=== PATIENT | female | born 1970 | race Caucasian/White ===

== ENCOUNTER 2025-02-05 17:50 | Inpatient (IN) ==
--- NOTE | 2025-02-05 18:14 | Emergency Department Note ---
Impression & Plan Small bowel obstruction, Abdominal pain ED Provider Note NAME: KERA BETH AGE: 54 SEX: F : 1970 ARRIVES VIA: Walk-In INFORMANT: Patient ED PROVIDER(S): Cosmo Cardenas DO CHIEF COMPLAINT: Abdominal pain HPI: Patient is a 54-year-old female who presents to the ER for abdominal pain. She notes it started around 9 PM last night. It is periumbilical. She notes she does not want to eat. She does have nausea but no vomiting. Last bowel movement was this morning. Previous abdominal surgeries include hysterectomy. No headache or change in vision. No chest pain or shortness of breath. No dysuria, urgency or frequency. No other exacerbating or remitting factors. ADDITIONAL HISTORY OBTAINED: Per HPI Chronic Medical/Social Conditions Affecting Care: Per HPI PAST MEDICAL HISTORY:See Below PAST SURGICAL HISTORY:See Below FAMILY HISTORY:See Below SOCIAL HISTORY:See Below HOME MEDICATIONS:See Below ALLERGIES:See Below VITALS:See Below PHYSICAL EXAMINATION: GENERAL: Sitting up in bed, alert, well appearing, well nourished, no distress, non-toxic EYE EXAM: normal conjunctiva. OROPHARYNX: mucous membranes are moist LUNGS: Clear to auscultation. Normal chest wall mechanics HEART: no murmurs, S1 normal and S2 normal ABDOMEN: abdomen soft, non-tender, normo-active bowel sounds, no masses, no rebound or guarding. UPPER EXTREMITIES: upper extremities are grossly normal. LOWER EXTREMITIES: No pitting edema. NEURO EXAM: Normal sensorium, cranial nerves II-XII grossly intact, normal speech, no gross weakness of arms, no gross weakness of legs. MEDICAL DECISION MAKING: Patient is a 54-year-old female who presents to the ER for the stated complaint. IV was established and blood work was obtained. Labs show no significant leukocytosis. No anemia. BMP along LFTs bilirubin and lipase was unremarkable. CT abdomen pelvis suggest an obstruction. Patient was given IV fluids, IV morphine and IV Zofran. She was updated at bedside. Discussed case with the hospitalist for further evaluation management treatment due to the mechanical obstruction seen on CT read by radiology. Consults/Care Managements Discussions: Per [facility] Triage Nursing notes reviewed. Limited review of prior medical records performed Vital Signs: reviewed and remarkable for tachy Differential diagnosis: Differential diagnoses includes but is not limited to gastritis, peptic ulcer disease, GERD, gallbladder disease, pancreatitis, small bowel obstruction, appendicitis, diverticulitis, hernia, urinary tract infection, torsion, /ectopic (if female), perforation, trauma, infectious. ER treatment provided: See below Diagnostics interpreted by me include EKG and cardiac monitoring as listed below: -Cardiac Monitoring: An order was placed for continuous cardiac monitoring. The monitor shows a rate of 101 with sinus rhythm. -ECG: none -Laboratory studies:Interpreted by me as stated above in MDM and shown below. Imaging studies: Xrays: As interpreted by me:none CTs show: CT abdomen pelvis per my pleurae interpretation showed no obvious pneumonia in the lower lung merino CT abdomen pelvis per radiology as described above Procedures:none Critical Care: None Past Med/Surg History Problem List (Updated 02/05/25 @ 20:35 by Cosmo Cardenas DO) Abdominal pain (Acute) Small bowel obstruction (Acute) Medical History (Updated 02/05/25 @ 20:35 by Cosmo Cardenas DO) Bowel obstruction Surgical History (Updated 06/13/22 @ 17:17 by RADHIKA Leonardo) H/O: hysterectomy Social History Smoking Status: Current every day smoker Tobacco Type: Cigarettes Preferred Language: Maltese Feels Safe at Home: Yes Allergies Allergies Allergy/AdvReac Type Severity Reaction Status Date / Time cefuroxime [From Ceftin] Allergy Intermediate ITCHY RASH Verified 06/13/22 18:41 cephalexin [From Keflex] Allergy Intermediate ITCHY RASH Verified 06/13/22 18:41 erythromycin base Allergy Intermediate ITCHY RASH Verified 06/13/22 18:41 Penicillins Allergy Intermediate ITCHY RASH Verified 06/13/22 18:41 Tetracyclines Allergy Intermediate ITCHY RASH Verified 06/13/22 18:41 Home Meds Home Medications Medication Instructions Recorded Confirmed diphenhydramine HCl 25 mg 25 mg PO HS PRN Sleep 06/13/22 06/13/22 disintegrating tablet (Unisom SleepMelts) Results & Data (ED) Vital Signs Vital Signs - 24 hr 02/05/25 17:54 02/05/25 18:25 02/05/25 19:57 Temperature 36.6 C Temperature Source Temporal Artery Scan Pulse Rate 102 H 88 Pulse Rate [Apical] 78 Pulse Rhythm Pulse Rhythm [Apical] Regular Pulse Strength [Apical] Normal Respiratory Rate 20 16 Respiratory Effort / Characteristics Non-Labored Spontaneous Non-Labored Spontaneous Respiratory Depth Normal Normal Respiratory Pattern Regular Regular Blood Pressure 112/69 Blood Pressure [Right Arm] 126/83 Blood Pressure Mean 83 Blood Pressure Mean [Right Arm] 97 Blood Pressure Position Sitting Blood Pressure Position [Right Arm] Lying Pulse Oximetry 96 97 Oxygen Delivery Method Room Air Room Air Sepsis Recent Fever Within 48 Hours No Sepsis New/Unexplained Change in Mental Status N/A Sepsis Action Taken by Nursing No Action Required 02/05/25 20:00 Temperature Temperature Source Pulse Rate 72 Pulse Rate [Apical] Pulse Rhythm Regular Pulse Rhythm [Apical] Pulse Strength [Apical] Respiratory Rate 20 Respiratory Effort / Characteristics Respiratory Depth Respiratory Pattern Blood Pressure Blood Pressure [Right Arm] Blood Pressure Mean Blood Pressure Mean [Right Arm] Blood Pressure Position Blood Pressure Position [Right Arm] Pulse Oximetry 96 Oxygen Delivery Method Room Air Sepsis Recent Fever Within 48 Hours Sepsis New/Unexplained Change in Mental Status Sepsis Action Taken by Nursing Laboratory Data 02/05/25 18:15 02/05/25 18:15 Lab Results 02/05/25 02/05/25 Range/Units 18:15 18:31 WBC 10.71 (4.8-10.8) K/ul RBC 5.32 (4.20-5.40) M/uL Hgb 16.3 H (12.0-16.0) g/dl POC Hgb 17.0 H (12.0-16.0) g/dl Hct 48.2 H (37.0-47.0) % POC Hct 50 H (37-47) % MCV 90.6 (80.0-100.0) fL MCH 30.6 (25.0-34.0) pg MCHC 33.8 (32.0-36.0) g/dL RDW Std Deviation 46.3 (36.4-46.3) fL RDW Coeff of Nathen 13.9 (11.5-14.5) % Plt Count 405 H (130-400) K/uL MPV 8.6 L (9.4-12.4) fL Immature Gran % (Auto) 0.3 % Neut % (Auto) 76.7 % Lymph % (Auto) 17.5 % Kings % (Auto) 3.8 % Eos % (Auto) 1.4 % Baso % (Auto) 0.3 % Neut # (Auto) 8.22 H (1.40-6.50) K/uL Lymph # (Auto) 1.87 (1.20-3.40) K/uL Kings # (Auto) 0.41 (0.11-0.59) K/uL Eos # (Auto) 0.15 (0.00-0.50) K/uL Baso # (Auto) 0.03 (0.00-0.20) K/uL Immature Gran # (Auto) 0.03 (0.01-0.20) K/uL POC Sodium 139 (135-144) mmol/L Sodium 139 (136-145) mmol/L POC Potassium 4.3 (3.3-5.0) mmol/L Potassium 4.3 (3.5-5.1) mmol/L POC Chloride 105 (101-112) mmol/L Chloride 105 (98-107) mmol/L Carbon Dioxide 25 (21-32) mmol/L POC Total CO2 24 (24-31) mmol/L Anion Gap 9 (3-11) POC Anion Gap 16.0 (16-25) mmol/L POC BUN 8 (7-18) mg/dl BUN 9 (6-23) mg/dl Creatinine 0.71 (0.6-1.2) mg/dl POC Creatinine 0.8 (0.6-1.3) mg/dl Est Cr Clr Drug Dosing Not Reportable eGFR 100.98 BUN/Creatinine Ratio 12.7 (10-20) Glucose 104 H (70-99(Fasting)) mg/dl POC Glucose (other) 102 H (70-99) mg/dl Calcium 9.6 (8.6-10.3) mg/dl POC Ioniz Calcium Fiona 1.14 (1.12-1.32) mmol/l Total Bilirubin 0.5 (0.2-1.0) mg/dl AST 14 (13-39) U/L ALT 11 (7-52) U/L Alkaline Phosphatase 83 (34-104) U/L Total Protein 7.8 (6.0-8.3) gm/dl Albumin 4.3 (3.4-5.0) gm/dl Globulin 3.5 (2.5-4.0) gm/dl Albumin/Globulin Ratio 1.2 (0.9-2) Lipase 58 (11-82) U/L Administered Medications Discontinued Medications Sodium Chloride (Nss) 1,000 mls @ 999 mls/hr IV .Q1H1M ONE Stop: 02/05/25 18:57 Last Infusion: 02/05/25 19:26 Dose: Infused Documented By: Admin: 02/05/25 18:23 Dose: 999 mls/hr Documented By: KELSEY Ioversol (Optiray 320 100ml) 90 ml IV ONCE ONE Stop: 02/05/25 18:43 Last Admin: 02/05/25 18:42 Dose: 90 ml Documented By: SP Morphine Sulfate (Morphine Sulfate 4 Mg/Ml 1 Ml Carp\Vial) 4 mg IV NOW STA Stop: 02/05/25 18:13 Last Admin: 02/05/25 18:23 Dose: 4 mg Documented By: KELSEY Ondansetron HCl (Ondansetron Inj 2 Mg/Ml 2 Ml Vial) 4 mg IV NOW STA Stop: 02/05/25 18:13 Last Admin: 02/05/25 18:23 Dose: 4 mg Documented By: KELSEY Imaging Data Radiologist's Impression: Abdomen/Pelvis CT 02/05/25 17:57 EXAMINATION: CT of the abdomen and pelvis performed after the administration of IV contrast TECHNIQUE: Helical CT images from the lung bases through the symphysis pubis were obtained with contrast. Coronal and sagittal reformatted images were generated at a workstation for further assessment. Dose reduction techniques were achieved by using automatic exposure control and/or adjustment of mA and/or kV according to patient size and/or use of iterative reconstruction technique. COMPARISON: None HISTORY: Abdominal pain FINDINGS: Lower chest: No consolidation. No pleural effusion or pneumothorax. Liver: No suspicious liver lesions. Portal veins appear patent. Gallbladder: No gallstones. No evidence of acute cholecystitis. Spleen: Normal size. Pancreas: No suspicious pancreatic lesions. The pancreatic duct is not dilated. Adrenal glands: No adrenal nodules. Kidneys: No hydronephrosis or obstructing renal stones. Bladder / Pelvic organs: Unremarkable. Bowel: No bowel obstruction. A long segment, beginning at the terminal ileum of the small bowel, demonstrates wall thickening and mucosal hyperenhancement, with mild fluid filling, and is otherwise collapsed. Just proximal to this, there is a moderate length segment of significant small bowel dilation, containing feces, which proximally auto decompresses. Most of the jejunum appears decompressed and otherwise unremarkable. The appendix is unremarkable. Lymph nodes: No retroperitoneal, mesenteric, or pelvic lymphadenopathy. Peritoneum / Retroperitoneum: No free fluid or air within the abdomen. Vessels: No infrarenal aortic aneurysm. Bones and soft tissues: No suspicious lesion in the bones. Mild, irregularity and sclerosis about the iliac aspect of the right SI joint, possibly due to sacroiliitis. IMPRESSION: Findings, as above, of a long segment of terminal ileum demonstrating wall thickening and mucosal hyperenhancement, mild fluid filling, and otherwise is decompressed. Just proximal to this, is a moderate length segment of significantly dilated bowel containing feces, likely due to partial mechanical obstruction. The findings raise concern for inflammatory bowel (Crohn) disease. Possible right-sided sacroiliitis. Electronically signed by Taj Brar 02-05-2025 7:17 PM Discharge Plan Visit Data Chief Complaint: Abdominal Pain Stated Complaint: SEVERE ABD PAIN, NAUSEA ED Provider: Cosmo Cardenas Discharge Problem: Small bowel obstruction, Abdominal pain Condition: Fair Forms Stand Alone Forms: [facility] [employer] Prescriptions Prescriptions: No Action Unisom SleepMelts 25 mg Tablet,Disintegrating 25 mg PO HS PRN (Reason: Sleep) Referrals Referrals: Halle Negrete MD [Outside Practitioners] - Discharge Problem: Abdominal pain Qualifiers: Abdominal location: unspecified location Qualified Code(s): R10.9 - Unspecified abdominal pain
[2025-02-05] MEDS: MoRPHine SULFATE 4 MG/ML 1 ML CARP\\VIAL IV STA (18:23)
[2025-02-05] MEDS: ONDANSETRON INJ 2 MG/ML 2 ML VIAL IV STA (18:23)
[2025-02-05] MEDS: SODIUM CHLORIDE 0.9% 1,000 ML IV ONE (18:23)
[2025-02-05 18:37] LABS: Hematocrit (blood only) 48.2 % (37.0-47.0); Hemoglobin 16.3 g/dl (12.0-16.0); Immature Granulocytes # (auto) 0.03 K/uL (0.01-0.20); Immature Granulocytes % (auto) 0.3 %; Mean Corpuscular Hemoglobin 30.6 pg (25.0-34.0); Mean Corpuscular Volume 90.6 fL (80.0-100.0); Platelet Count 405 K/uL (130-400); RDW Standard Deviation 46.3 fL (36.4-46.3); Red Blood Count 5.32 M/uL (4.20-5.40); White Blood Count 10.71 K/ul (4.8-10.8)
[2025-02-05] MEDS: OPTIRAY 320 100ml IV ONE (18:42)
[2025-02-05 18:53] LABS: Alanine Aminotransferase 11 U/L (7-52); Albumin Globulin Ratio 1.2 (0.9-2); Alkaline Phosphatase 83 U/L (34-104); Anion Gap 9 (3-11); Bilirubin,Total 0.5 mg/dl (0.2-1.0); Blood Urea Nitrogen 9 mg/dl (6-23); Calcium 9.6 mg/dl (8.6-10.3); Carbon Dioxide 25 mmol/L (21-32); Chloride 105 mmol/L (98-107); Globulin 3.5 gm/dl (2.5-4.0); Glucose 104 mg/dl (70-99(Fasting)); Lipase 58 U/L (11-82); Potassium 4.3 mmol/L (3.5-5.1); Sodium 139 mmol/L (136-145); Total Protein 7.8 gm/dl (6.0-8.3)
--- NOTE | 2025-02-05 19:17 | CT Scan Report ---
EXAMINATION: CT of the abdomen and pelvis performed after the administration of IV contrast TECHNIQUE: Helical CT images from the lung bases through the symphysis pubis were obtained with contrast. Coronal and sagittal reformatted images were generated at a workstation for further assessment. Dose reduction techniques were achieved by using automatic exposure control and/or adjustment of mA and/or kV according to patient size and/or use of iterative reconstruction technique. COMPARISON: None HISTORY: Abdominal pain FINDINGS: Lower chest: No consolidation. No pleural effusion or pneumothorax. Liver: No suspicious liver lesions. Portal veins appear patent. Gallbladder: No gallstones. No evidence of acute cholecystitis. Spleen: Normal size. Pancreas: No suspicious pancreatic lesions. The pancreatic duct is not dilated. Adrenal glands: No adrenal nodules. Kidneys: No hydronephrosis or obstructing renal stones. Bladder / Pelvic organs: Unremarkable. Bowel: No bowel obstruction. A long segment, beginning at the terminal ileum of the small bowel, demonstrates wall thickening and mucosal hyperenhancement, with mild fluid filling, and is otherwise collapsed. Just proximal to this, there is a moderate length segment of significant small bowel dilation, containing feces, which proximally auto decompresses. Most of the jejunum appears decompressed and otherwise unremarkable. The appendix is unremarkable. Lymph nodes: No retroperitoneal, mesenteric, or pelvic lymphadenopathy. Peritoneum / Retroperitoneum: No free fluid or air within the abdomen. Vessels: No infrarenal aortic aneurysm. Bones and soft tissues: No suspicious lesion in the bones. Mild, irregularity and sclerosis about the iliac aspect of the right SI joint, possibly due to sacroiliitis. IMPRESSION: Findings, as above, of a long segment of terminal ileum demonstrating wall thickening and mucosal hyperenhancement, mild fluid filling, and otherwise is decompressed. Just proximal to this, is a moderate length segment of significantly dilated bowel containing feces, likely due to partial mechanical obstruction. The findings raise concern for inflammatory bowel (Crohn) disease. Possible right-sided sacroiliitis. Electronically signed by Taj Brar 02-05-2025 7:17 PM
--- NOTE | 2025-02-05 19:53 | History & Physical Report ---
Date of Service February 05, 2025 Assessment & Plan (1) Abdominal pain: (2) Small bowel obstruction: Plan 54-year-old female with history of prior bowel obstructions presenting with abdominal pain, distention and nausea which began 02/04/2025 around 2100. Symptoms have been persistent. Pain controlled presently after administration of morphine. No nausea at present. #Abdominal pain/small bowel obstructionpatient with history of prior. Reports never requiring surgical intervention. She has history of total abdominal hysterectomy as well as laparoscopy for adhesions in the past. Inflammatory findings noted on the CT as above. Concerning for Crohn's disease?. Patient denies personal or family history of inflammatory bowel disease. Admit to medical telemetry Maintain n.p.o. status IV fluids with LR at 100 mL/h x 2 L Morphine as needed for pain Zofran as needed for nausea General Surgery consultation appreciated Check ESR and CRP Consider GI consultation for further evaluation of inflammatory bowel disease #Tobacco abuse Smoking cessation counseling Continue Trelegy or formulary equivalent Albuterol as needed History of Present Illness Chief Complaint: Abdominal pain Primary Care Provider: Colton No MD Suzy Saucedo is a 54-year-old female with history of prior bowel obstructions, history of total abdominal hysterectomy as well as laparoscopy for adhesions presenting with abdominal pain. Last night 02/04/2025 around 21:00 patient developed severe upper abdominal pain and bloating as well as distention. Patient also with nausea but no vomiting. She had a bowel movement this morning around 05:00reports it being soft with some blood on the toilet paper, no blood in the stool or in the bowl. No relief of abdominal pain after her bowel movement. Her symptoms continued through the day so she came to the hospital. She has had no additional bowel movements nor passed flatus since 05:00. She has had some sweats and chills. Otherwise denies chest pain, cough, urinary complaints In the ER she is afebrile, hemodynamically stable and nontoxic in appearance ER course: Morphine Zofran Normal saline Allergies Allergy/AdvReac Type Severity Reaction Status Date / Time cefuroxime [From Ceftin] Allergy Intermediate ITCHY RASH Verified 02/05/25 21:22 cephalexin [From Keflex] Allergy Intermediate ITCHY RASH Verified 02/05/25 21:22 erythromycin base Allergy Intermediate ITCHY RASH Verified 02/05/25 21:22 Penicillins Allergy Intermediate ITCHY RASH Verified 02/05/25 21:22 Tetracyclines Allergy Intermediate ITCHY RASH Verified 02/05/25 21:22 Home Medications Medication Instructions Recorded Confirmed Type diphenhydramine HCl 25 mg 25 mg PO HS Sleep 06/13/22 02/05/25 History disintegrating tablet (Unisom SleepMelts) albuterol sulfate 90 mcg/actuation 2 puff inhalation Q4 PRN Wheezing 02/05/25 02/05/25 History aerosol inhaler diclofenac sodium 75 mg 75 mg PO AMHS 02/05/25 02/05/25 History tablet,delayed release fluticasone fur. 200 mcg-umeclid 1 ea inhalation QAM 02/05/25 02/05/25 History 62.5 mcg-vilant 25 mcg inhalat.powder (Trelegy Ellipta) fluticasone propionate 50 2 spray intranasal AMHS 02/05/25 02/05/25 History mcg/actuation nasal spray,suspension gabapentin 300 mg capsule 300 mg PO BID PRN arm nerve pain 02/05/25 02/05/25 History loratadine 10 mg tablet 10 mg PO QPM 02/05/25 02/05/25 History montelukast 10 mg tablet 10 mg PO QAM 02/05/25 02/05/25 History phentermine 30 mg capsule 30 mg PO QAM 02/05/25 02/05/25 History Past Med/Surg History Problem List Abdominal pain (Acute) Small bowel obstruction (Acute) Medical History Bowel obstruction Surgical History H/O: hysterectomy Social History Smoking Status: Current every day smoker Tobacco Type: Cigarettes Second Hand Exposure: Yes; Do You Dip or Chew Tobacco: No; Tobacco Cessation Education Requested by Patient: No Hx Alcohol Use: No Hx Substance Use: No Preferred Language: Khmer Communication Ability: Effective Itinerant Teacher Assistant Required: No Beliefs That Will Affect Care: None Current Living Situation: Spouse Other Information That Helps Us Care for You: No Feels Safe at Home: Yes Safety Concerns: Feels Safe At This Time Assistive Devices: None Review of Systems Review of Systems: All systems reviewed & are unremarkable except as noted in HPI & below Physical Exam Physical Exam: General: patient resting comfortably, NAD, non-toxic in appearance, AA&O x 4 Skin: warm, dry, intact, no rashes or lesions HEENT: NC/AT, PERRL, EOMI, anicteric sclera, conjunctiva without injection, e xternal ear normal to inspection and nontender, nares patent, moist mucus membranes, dentition intact, no oropharyngeal lesions, neck supple, trachea midline, no LAD, no thyromegaly, no JVD Heart: +S1/S2, regular, no m/r/g Lungs: equal air entry bilaterally, no rales/rhonchi/wheezes Abd: +BS, diminished, soft, nondistended, mild tenderness in the upper abdomen with palpation, no rebound/guarding, no masses/organomegaly/ascites Ext: warm, 2+ pulses in UE/LE bilaterally, no clubbing/cyanosis or edema Neuro: nonfocal, patient AA&O x 4, speech intact, no facial droop, moving all extremities on command with equal strength 5/5 Results & Data Results & Data Vital Signs (Past 12 Hours) Vital Signs Temp Pulse Resp BP Pulse Ox O2 Del Method 02/05/25 18:25 88 02/05/25 17:54 36.6 C 102 H 20 112/69 96 Room Air Laboratory Results Laboratory Results WBC 10.71 K/ul (4.8-10.8) 02/05/25 18:15 RBC 5.32 M/uL (4.20-5.40) 02/05/25 18:15 Hgb 16.3 g/dl (12.0-16.0) H 02/05/25 18:15 POC Hgb 17.0 g/dl (12.0-16.0) H 02/05/25 18:31 Hct 48.2 % (37.0-47.0) H 02/05/25 18:15 POC Hct 50 % (37-47) H 02/05/25 18:31 MCV 90.6 fL (80.0-100.0) 02/05/25 18:15 MCH 30.6 pg (25.0-34.0) 02/05/25 18:15 MCHC 33.8 g/dL (32.0-36.0) 02/05/25 18:15 RDW Std Deviation 46.3 fL (36.4-46.3) 02/05/25 18:15 RDW Coeff of Nathen 13.9 % (11.5-14.5) 02/05/25 18:15 Plt Count 405 K/uL (130-400) H 02/05/25 18:15 MPV 8.6 fL (9.4-12.4) L 02/05/25 18:15 Immature Gran % (Auto) 0.3 % 02/05/25 18:15 Neut % (Auto) 76.7 % 02/05/25 18:15 Lymph % (Auto) 17.5 % 02/05/25 18:15 [place] % (Auto) 3.8 % 02/05/25 18:15 Eos % (Auto) 1.4 % 02/05/25 18:15 Baso % (Auto) 0.3 % 02/05/25 18:15 Neut # (Auto) 8.22 K/uL (1.40-6.50) H 02/05/25 18:15 Lymph # (Auto) 1.87 K/uL (1.20-3.40) 02/05/25 18:15 [place] # (Auto) 0.41 K/uL (0.11-0.59) 02/05/25 18:15 Eos # (Auto) 0.15 K/uL (0.00-0.50) 02/05/25 18:15 Baso # (Auto) 0.03 K/uL (0.00-0.20) 02/05/25 18:15 Immature Gran # (Auto) 0.03 K/uL (0.01-0.20) 02/05/25 18:15 ESR 50 mm/hr (0-30) H 02/05/25 18:15 POC Sodium 139 mmol/L (135-144) 02/05/25 18:31 Sodium 139 mmol/L (136-145) 02/05/25 18:15 POC Potassium 4.3 mmol/L (3.3-5.0) 02/05/25 18:31 Potassium 4.3 mmol/L (3.5-5.1) 02/05/25 18:15 POC Chloride 105 mmol/L (101-112) 02/05/25 18:31 Chloride 105 mmol/L (98-107) 02/05/25 18:15 Carbon Dioxide 25 mmol/L (21-32) 02/05/25 18:15 POC Total CO2 24 mmol/L (24-31) 02/05/25 18:31 Anion Gap 9 (3-11) 02/05/25 18:15 POC Anion Gap 16.0 mmol/L (16-25) 02/05/25 18:31 POC BUN 8 mg/dl (7-18) 02/05/25 18:31 BUN 9 mg/dl (6-23) 02/05/25 18:15 Creatinine 0.71 mg/dl (0.6-1.2) 02/05/25 18:15 POC Creatinine 0.8 mg/dl (0.6-1.3) 02/05/25 18:31 Est Cr Clr Drug Dosing Not Reportable 02/05/25 18:15 eGFR 100.98 02/05/25 18:15 BUN/Creatinine Ratio 12.7 (10-20) 02/05/25 18:15 Glucose 104 mg/dl (70-99(Fasting)) H 02/05/25 18:15 POC Glucose (other) 102 mg/dl (70-99) H 02/05/25 18:31 Calcium 9.6 mg/dl (8.6-10.3) 02/05/25 18:15 POC Ioniz Calcium Fiona 1.14 mmol/l (1.12-1.32) 02/05/25 18:31 Phosphorus 4.6 mg/dl (2.5-4.9) 02/05/25 18:15 Magnesium 2.2 mg/dl (1.7-2.4) 02/05/25 18:15 Total Bilirubin 0.5 mg/dl (0.2-1.0) 02/05/25 18:15 AST 14 U/L (13-39) 02/05/25 18:15 ALT 11 U/L (7-52) 02/05/25 18:15 Alkaline Phosphatase 83 U/L (34-104) 02/05/25 18:15 C-Reactive Protein 0.73 mg/dl (0-0.5) H 02/05/25 18:15 Total Protein 7.8 gm/dl (6.0-8.3) 02/05/25 18:15 Albumin 4.3 gm/dl (3.4-5.0) 02/05/25 18:15 Globulin 3.5 gm/dl (2.5-4.0) 02/05/25 18:15 Albumin/Globulin Ratio 1.2 (0.9-2) 02/05/25 18:15 Lipase 58 U/L (11-82) 02/05/25 18:15 Impressions Abdomen/Pelvis CT 02/05/25 17:57 EXAMINATION: CT of the abdomen and pelvis performed after the administration of IV contrast TECHNIQUE: Helical CT images from the lung bases through the symphysis pubis were obtained with contrast. Coronal and sagittal reformatted images were generated at a workstation for further assessment. Dose reduction techniques were achieved by using automatic exposure control and/or adjustment of mA and/or kV according to patient size and/or use of iterative reconstruction technique. COMPARISON: None HISTORY: Abdominal pain FINDINGS: Lower chest: No consolidation. No pleural effusion or pneumothorax. Liver: No suspicious liver lesions. Portal veins appear patent. Gallbladder: No gallstones. No evidence of acute cholecystitis. Spleen: Normal size. Pancreas: No suspicious pancreatic lesions. The pancreatic duct is not dilated. Adrenal glands: No adrenal nodules. Kidneys: No hydronephrosis or obstructing renal stones. Bladder / Pelvic organs: Unremarkable. Bowel: No bowel obstruction. A long segment, beginning at the terminal ileum of the small bowel, demonstrates wall thickening and mucosal hyperenhancement, with mild fluid filling, and is otherwise collapsed. Just proximal to this, there is a moderate length segment of significant small bowel dilation, containing feces, which proximally auto decompresses. Most of the jejunum appears decompressed and otherwise unremarkable. The appendix is unremarkable. Lymph nodes: No retroperitoneal, mesenteric, or pelvic lymphadenopathy. Peritoneum / Retroperitoneum: No free fluid or air within the abdomen. Vessels: No infrarenal aortic aneurysm. Bones and soft tissues: No suspicious lesion in the bones. Mild, irregularity and sclerosis about the iliac aspect of the right SI joint, possibly due to sacroiliitis. IMPRESSION: Findings, as above, of a long segment of terminal ileum demonstrating wall thickening and mucosal hyperenhancement, mild fluid filling, and otherwise is decompressed. Just proximal to this, is a moderate length segment of significantly dilated bowel containing feces, likely due to partial mechanical obstruction. The findings raise concern for inflammatory bowel (Crohn) disease. Possible right-sided sacroiliitis. Electronically signed by Taj Brar 02-05-2025 7:17 PM PG Care Time/CCT Total # of Minutes Spent Total Time Spent with Patient: Total time spent is greater than 50% in coordination of care (as documented) at patient's floor/unit and/or counseling patient: Coding Level of Care Code 10767 INT INP/OBS CARE 3/75MIN Diagnoses Abdominal pain R10.9 Abdominal location: unspecified location Small bowel obstruction K56.609 (1) Abdominal pain Abdominal location: unspecified location Qualified Code(s): R10.9 - Unspecified abdominal pain
[2025-02-05] MEDS ORDERED: MoRPHine SULFATE 2 MG/ML CARP IV PRN ×2 (20:16→21:59)
[2025-02-05] MEDS: MoRPHine SULFATE 4 MG/ML 1 ML CARP\\VIAL IV PRN (20:44)
[2025-02-05] MEDS: LACTATED RINGER'S 1,000 ML IV SCH (22:13)
[2025-02-05] MEDS: ACETAMINOPHEN 325 MG TAB PO PRN (22:14)
[2025-02-05 22:17] LABS: Magnesium 2.2 mg/dl (1.7-2.4)
[2025-02-05] MEDS ORDERED: ALBUTEROL HFA 8 GM INHALER INH PRN (22:34)
--- NOTE | 2025-02-06 01:28 | Surgery Consultation ---
Date of Consultation February 06, 2025 Assessment & Plan (1) Small bowel obstruction: Patient is a 50 forted female with complaints of abdominal pain, distention, and nausea for the last 2 days. Patient does have history of previous small bowel obstructions in the past that have been treated conservatively. Patient was ultimately worked up and CT imaging was concerning for mechanical obstruction and patient was admitted to medical service. Patient was seen and evaluated early this morning at bedside. She is resting comfortably in bed, vital signs stable, and is nontoxic-appearing. From a surgical perspective recommend the following: -Patient with no signs of acute abdomen that would warrant emergent surgical intervention, will plan to treat conservatively -After receiving medication she no longer feels nauseous and states her abdominal distention has somewhat improved. I discussed with the patient about NG tube placement, however she would like to hold off at this time. I did discuss with the patient that if she does become symptomatic we would recommend placing an NG tube for bowel decompression and she is in agreement with the plan. - Keep n.p.o., IV hydration, pain control and antiemetics as needed - Medical management per primary team, surgery will continue to follow As above. Patient seen. Still having some lower abdominal discomfort. No nausea or vomiting. She states that she has had 3-4 episodes of these over the years. Her last 1 was in 2019. She required NG tube but resolved with conservative management. No urgent or emergent surgical indications for surgical intervention. We discussed possibility of this being an undiagnosed inflammatory bowel situation. GIs been consulted and she will need a complete workup. Doubt adhesions as the cause however this is not impossible. I did tell her that if the GI workup is completely negative and she continues to get recurrent evidence of small bowel obstructions we could always consider a diagnostic laparoscopy in the future. We will continue to follow along from the periphery please call if any questions or concerns. History of Present Illness Reason for Consultation: SBO History of Present Illness The patient is a 54-year-old female presented to the emergency department last evening with complaints of abdominal pain. The patient states that her pain started roughly 2 nights ago and yesterday the pain had become severe along with some associated abdominal distention and bloating which prompted her to come to the emergency department. Patient also states that she has some nausea however denies any episode of vomiting. States her last bowel movement was yesterday, however over the past 2 weeks she has struggled with constipation.The patient states that she does have a history of previous small bowel obstructions in the past that have been treated conservatively. Denies history of ulcerative colitis or Crohn's disease. She does have a surgical history of a total hys terectomy along with lysis of adhesions which she states was from a gynecological procedure. Upon workup in the emergency department last evening CT imaging was concerning for mechanical bowel obstruction and the patient was admitted to the medical service. Allergies Allergy/AdvReac Type Severity Reaction Status Date / Time cefuroxime [From Ceftin] Allergy Intermediate ITCHY RASH Verified 02/05/25 21:22 cephalexin [From Keflex] Allergy Intermediate ITCHY RASH Verified 02/05/25 21:22 erythromycin base Allergy Intermediate ITCHY RASH Verified 02/05/25 21:22 Penicillins Allergy Intermediate ITCHY RASH Verified 02/05/25 21:22 Tetracyclines Allergy Intermediate ITCHY RASH Verified 02/05/25 21:22 Home Medications Medication Instructions Recorded Confirmed Type diphenhydramine HCl 25 mg 25 mg PO HS Sleep 06/13/22 02/05/25 History disintegrating tablet (Unisom SleepMelts) albuterol sulfate 90 mcg/actuation 2 puff inhalation Q4 PRN Wheezing 02/05/25 02/05/25 History aerosol inhaler diclofenac sodium 75 mg 75 mg PO AMHS 02/05/25 02/05/25 History tablet,delayed release fluticasone fur. 200 mcg-umeclid 1 ea inhalation QAM 02/05/25 02/05/25 History 62.5 mcg-vilant 25 mcg inhalat.powder (Trelegy Ellipta) fluticasone propionate 50 2 spray intranasal AMHS 02/05/25 02/05/25 History mcg/actuation nasal spray,suspension gabapentin 300 mg capsule 300 mg PO BID PRN arm nerve pain 02/05/25 02/05/25 History loratadine 10 mg tablet 10 mg PO QPM 02/05/25 02/05/25 History montelukast 10 mg tablet 10 mg PO QAM 02/05/25 02/05/25 History phentermine 30 mg capsule 30 mg PO QAM 02/05/25 02/05/25 History Patient History Medical History Bowel obstruction Surgical History H/O: hysterectomy Social History Smoking Status: Current every day smoker Tobacco Type: Cigarettes Second Hand Exposure: Yes; Do You Dip or Chew Tobacco: No; Tobacco Cessation Education Requested by Patient: No Hx Alcohol Use: No Hx Substance Use: No Preferred Language: Uzbek Communication Ability: Effective Production Estimator Required: No Beliefs That Will Affect Care: None Current Living Situation: Spouse Other Information That Helps Us Care for You: No Feels Safe at Home: Yes Safety Concerns: Feels Safe At This Time Assistive Devices: None Review of Systems Constitutional: no fever, no chills and no body aches Respiratory: no cough, no chest congestion and no dyspnea Cardiovascular: no chest pain, no palpitations and no syncope Gastrointestinal: as per Subjective / HPI, + abdominal pain, + bloating, + nausea and + constipation; no vomiting Genitourinary: no difficulty urinating, no urinary hesitancy and no hematuria Physical Exam Constitutional: WD/WN, vitals as above Respiratory: normal respiratory effort, lungs clear to auscultation Cardiovascular: RRR, no murmur, no edema Gastrointestinal (Abdomen): Abdomen soft, mildly distended, mild TTP in the upper epigastric region. No rebound, guarding or signs of peritonitis Skin: no rashes, warm and dry Psychiatric: A+Ox3, euthymic affect Results & Data Vital Signs (Past 12 Hours) Vital Signs Temp Pulse Pulse Pulse Resp BP BP 02/05/25 21:50 36.7 C 82 18 123/77 02/05/25 21:00 64 20 127/77 02/05/25 20:00 72 20 02/05/25 19:57 78 16 126/83 02/05/25 18:25 88 02/05/25 17:54 36.6 C 102 H 20 112/69 Pulse Ox O2 Del Method 02/05/25 21:50 95 Room Air 02/05/25 21:00 92 Room Air 02/05/25 20:00 96 Room Air 02/05/25 19:57 97 Room Air 02/05/25 18:25 02/05/25 17:54 96 Room Air Diagnostic Findings EXAMINATION: CT of the abdomen and pelvis performed after the administration of IV contrast TECHNIQUE: Helical CT images from the lung bases through the symphysis pubis were obtained with contrast. Coronal and sagittal reformatted images were generated at a workstation for further assessment. Dose reduction techniques were achieved by using automatic exposure control and/or adjustment of mA and/or kV according to patient size and/or use of iterative reconstruction technique. COMPARISON: None HISTORY: Abdominal pain FINDINGS: Lower chest: No consolidation. No pleural effusion or pneumothorax. Liver: No suspicious liver lesions. Portal veins appear patent. Gallbladder: No gallstones. No evidence of acute cholecystitis. Spleen: Normal size. Pancreas: No suspicious pancreatic lesions. The pancreatic duct is not dilated. Adrenal glands: No adrenal nodules. Kidneys: No hydronephrosis or obstructing renal stones. Bladder / Pelvic organs: Unremarkable. Bowel: No bowel obstruction. A long segment, beginning at the terminal ileum of the small bowel, demonstrates wall thickening and mucosal hyperenhancement, with mild fluid filling, and is otherwise collapsed. Just proximal to this, there is a moderate length segment of significant small bowel dilation, containing feces, which proximally auto decompresses. Most of the jejunum appears decompressed and otherwise unremarkable. The appendix is unremarkable. Lymph nodes: No retroperitoneal, mesenteric, or pelvic lymphadenopathy. Peritoneum / Retroperitoneum: No free fluid or air within the abdomen. Vessels: No infrarenal aortic aneurysm. Bones and soft tissues: No suspicious lesion in the bones. Mild, irregularity and sclerosis about the iliac aspect of the right SI joint, possibly due to sacroiliitis. IMPRESSION: Findings, as above, of a long segment of terminal ileum demonstrating wall thickening and mucosal hyperenhancement, mild fluid filling, and otherwise is decompressed. Just proximal to this, is a moderate length segment of significantly dilated bowel containing feces, likely due to partial mechanical obstruction. The findings raise concern for inflammatory bowel (Crohn) disease. Possible right-sided sacroiliitis. PG Care Time/CCT Total # of Minutes Spent Total Time Spent with Patient: Total time spent is greater than 50% in coordination of care (as documented) at patient's floor/unit and/or counseling patient: [place] [address] IN/OBS CONSULT LVL 2,35M Patient Type New Medical Decision Making Straight Forward Diagnoses Small bowel obstruction K56.609
[2025-02-06] MEDS: MoRPHine SULFATE 4 MG/ML 1 ML CARP\\VIAL IV PRN (02:16)
[2025-02-06 05:59] LABS: Hematocrit (blood only) 40.7 % (37.0-47.0); Hemoglobin 13.7 g/dl (12.0-16.0); Mean Corpuscular Hemoglobin 30.6 pg (25.0-34.0); Mean Corpuscular Volume 91.1 fL (80.0-100.0); Platelet Count 351 K/uL (130-400); RDW Standard Deviation 46.0 fL (36.4-46.3); Red Blood Count 4.47 M/uL (4.20-5.40); White Blood Count 8.61 K/ul (4.8-10.8)
[2025-02-06 06:14] LABS: Anion Gap 6.0 (3-11); Blood Urea Nitrogen 7.0 mg/dl (6-23); Calcium 8.2 mg/dl (8.6-10.3); Carbon Dioxide 24.0 mmol/L (21-32); Chloride 108.0 mmol/L (98-107); Creatinine Clr Calc Pharmacy 98.5 ml/min; Glucose 91.0 mg/dl (70-99(Fasting)); Potassium 3.7 mmol/L (3.5-5.1); Sodium 138.0 mmol/L (136-145)
[2025-02-06] MEDS: FLUTICASONE PROPIONATE NA SPR 16 GM BTL SCH (08:00)
[2025-02-06] MEDS: FLUTICASONE FUROATE 200MCG 14 PUFFS/INHALER INH SCH (08:00)
[2025-02-06] MEDS: UMECLIDINIUM/VILANTEROL 62.5/25MCG 7 PUFFS/INHALER INH SCH (08:02)
[2025-02-06 08:05] LABS: Appearance Urine Clear (Clear); Glucose Urine UA Negative (Negative)
[2025-02-06] MEDS ORDERED: NON-FORMULARY MEDICATION (Fluticasone-Umeclidin-Vilanter [Trelegy Ellipta] 200-62.5-25 mcg INH SCH (09:00)
[2025-02-06] MEDS: HEPARIN SOD 5,000 UNIT/0.5 ML VIAL SQ SCH (09:26)
[2025-02-06] MEDS: PANTOprazole 40 MG/10 ML SYR IV SCH (09:26)
[2025-02-06] MEDS: GABAPENTIN 300 MG CAP PO PRN (09:30)
--- NOTE | 2025-02-06 11:13 | Gastrointestinal Consultation ---
Date of Consultation February 06, 2025 Assessment & Plan (1) Abdominal pain: (2) Small bowel obstruction: Plan Patient with a history of obstructions/adhesions, admitted with an obstruction with concern for possible IBD on imaging. - she will need eventual colonoscopy once her obstruction has resolved. - continue with conservative measures for now. - further recommendations to follow, see MD turner. Supervising Physician Co-Signing Physician Notes I personally saw and examined the patient. I have reviewed the chart and agree with the documentation provided by the SENIOR CLINICAL CONSULTANT including discussion about the assessment, treatment and plan. Briefly, 4 year old female who presented to the ED on 02/05/25 with complaints of sudden onset abdominal pain that woke her up from her sleep. she also had associated nausea and heartburn. no emesis. She has been having issues with constipation, but she had her last bowel movement yesterday. She admits that she had bowel obstructions in the past that were just treated conservatively. She underwent a colonoscopy 7 to 10 years ago which was normal. Her CT here does show some dilation with thickening of the terminal ileum. Findings are suggestive of mechanical versus small bowel obstruction from Crohn's. She denies any symptoms in between these episodes. Has no family history of IBD. We can check an ANCA and ASCA and she deserves a colonoscopy with TI intubation outpatient. At this point hard to start steroids without a diagnosis in she feels this is like her normal obstruction that she has had in the past from adhesions. We will watch her and see how she does clinically. History of Present Illness Reason for Consultation: SBO, ? Crohns Requesting Physician: Raul Lee MD Attending Physician: Maura Chase, History of Present Illness Patient is a 54 year old female who presented to the ED on 02/05/25 with complaints of sudden onset abdominal pain that woke her up from her sleep. she also had associated nausea and heartburn. no emesis. She has been having issues with constipation, but she had her last bowel movement yesterday. She admits that she had bowel obstructions in the past that were just treated conservatively. She does have a surgical history of a total hysterectomy along with lysis of adhesions which she states was from a gynecological procedure. Upon workup in the ED she had CT imaging that was concerning for mechanical bowel obstruction and the possibility of crohn's disease. she has not moved her bowels or passed gas since admission. no family history of IBD. she tells me that she had a colonoscopy done years ago that was unremarkable. 02/06/25 hgb 13.7, hct 40.7, wbc 8.61, plts 351. CRP 0.73, lipase 58, LFTs wnl. CT AP 02/05/25 Findings of a long segment of terminal ileum demonstrating wall thickening and mucosal hyperenhancement, mild fluid filling, and otherwise is decompressed. Just proximal to this, is a moderate length segment of significantly dilated bowel containing feces, likely due to partial mechanical obstruction. The findings raise concern for inflammatory bowel (Crohn) disease. Possible right-sided sacroiliitis. Allergies Allergy/AdvReac Type Severity Reaction Status Date / Time cefuroxime [From Ceftin] Allergy Intermediate ITCHY RASH Verified 02/05/25 21:22 cephalexin [From Keflex] Allergy Intermediate ITCHY RASH Verified 02/05/25 21:22 erythromycin base Allergy Intermediate ITCHY RASH Verified 02/05/25 21:22 Penicillins Allergy Intermediate ITCHY RASH Verified 02/05/25 21:22 Tetracyclines Allergy Intermediate ITCHY RASH Verified 02/05/25 21:22 Home Medications Medication Instructions Recorded Confirmed Type diphenhydramine HCl 25 mg 25 mg PO HS Sleep 06/13/22 02/05/25 History disintegrating tablet (Unisom SleepMelts) albuterol sulfate 90 mcg/actuation 2 puff inhalation Q4 PRN Wheezing 02/05/25 02/05/25 History aerosol inhaler diclofenac sodium 75 mg 75 mg PO AMHS 02/05/25 02/05/25 History tablet,delayed release fluticasone fur. 200 mcg-umeclid 1 ea inhalation QA 02/05/25 02/05/25 History 62.5 mcg-vilant 25 mcg inhalat.powder (Trelegy Ellipta) fluticasone propionate 50 2 spray intranasal AMHS 02/05/25 02/05/25 History mcg/actuation nasal spray,suspension gabapentin 300 mg capsule 300 mg PO BID PRN arm nerve pain 02/05/25 02/05/25 History loratadine 10 mg tablet 10 mg PO QPM 02/05/25 02/05/25 History montelukast 10 mg tablet 10 mg PO QAM 02/05/25 02/05/25 History phentermine 30 mg capsule 30 mg PO QAM 02/05/25 02/05/25 History Patient History Medical History Bowel obstruction Surgical History H/O: hysterectomy Social History Smoking Status: Current every day smoker Tobacco Type: Cigarettes Second Hand Exposure: Yes; Do You Dip or Chew Tobacco: No; Tobacco Cessation Education Requested by Patient: No Hx Alcohol Use: No Hx Substance Use: No Preferred Language: [place] Citizen Communication Ability: Effective Gasoline Tester Required: No Beliefs That Will Affect Care: None Current Living Situation: Spouse Other Information That Helps Us Care for You: No Feels Safe at Home: Yes Safety Concerns: Feels Safe At This Time Assistive Devices: None Review of Systems Review of Systems: All systems reviewed & are unremarkable except as noted in HPI & below Physical Exam Constitutional: WD/WN, vitals as above Respiratory: normal respiratory effort, lungs clear to auscultation Cardiovascular: Rate/Rhythm: regular rate and regular rhythm Gastrointestinal (Abdomen): hypoactive bowel sounds, mild diffuse tenderness, no guarding, soft. Psychiatric: Orientation: alert and oriented x 3 Affect: euthymic affect Results & Data Vital Signs (Past 12 Hours) Vital Signs Temp Pulse Resp BP Pulse Ox O2 Del Method 02/06/25 07:41 98.1 F 83 18 103/70 95 Room Air Coding Level of Care Code 76279 IN/OBS CONSULT LVL 4,60M Diagnoses Abdominal pain R10.9 Abdominal location: unspecified location Small bowel obstruction K56.609 (1) Abdominal pain Abdominal location: unspecified location Qualified Code(s): R10.9 - Unspecified abdominal pain
--- NOTE | 2025-02-06 14:09 | Hospitalist Progress Note ---
Date of Service February 06, 2025 Assessment & Plan (1) Abdominal pain: Plan: Present on admission. Now resolved (2) Small bowel obstruction: Plan: Currently n.p.o. and on IV fluids. Appreciate general surgery consultation and recommendations. Thus far she has not required NG tube placement. (3) Inflammatory bowel disease: Plan: Suggested by parents of abdominal CT scan. GI consultation recommendations appreciated. She will need colonoscopy at a later date (4) Tobacco use: Plan: Smoking cessation recommended Plan Hopeful discharge to home within the next 2 to 3 days. Admission and Anticipated Discharge Date Admission Date: February 05, 2025 Subjective Alert and oriented. No distress. She remains n.p.o. with IV fluids running. Will obtain KUB in the morning, February 06. GI consultation noted. She will need a colonoscopy at a later date to rule out inflammatory bowel disease. Review of Systems 2 Review of Systems: Constitutionalno fever or chills ENTno blurred vision, no double vision, no epistaxis, no sore throat Respiratoryno cough, no wheezing, no shortness of breath Cardiacno palpitations, no chest pain, no syncope GIdenies vomiting. No bowel movement yet. GUno urinary retention, no urinary incontinence, no dysuria, no hematuria Musculoskeletalno joint pain, no muscle tenderness Skinno bruising, no rashes, no pruritus Neurono isolated weakness, no paresthesia, no weakness Psychno depression, no anxiety Physical Exam 2 Physical Exam: General-alert and oriented x3, no fever, no chills HEENT-head atraumatic and normocephalic, pupils equal and reactive to light, extraocular muscles intact Neck-no lymphadenopathy or thyromegaly, trachea midline Chest-clear to auscultation. No rales, wheezing or rhonchi Cardiac-regular rate and rhythm, normal S1 and S2 Abdomen-abdomen is nondistended. Bowel sounds are hypoactive but present. No palpable masses. No focal tenderness Extremities-no cyanosis, clubbing, or edema Neuro-cranial nerves II through XII intact, motor and sensory function within normal limits, strength symmetrical, no focal deficits Psych-normal affect, normal mood Results & Data Results & Data Vital Signs (Past 12 Hours) Vital Signs Temp Pulse Pulse Resp BP BP Pulse Ox 02/06/25 11:28 37.0 C 80 16 112/72 95 02/06/25 07:41 36.7 C 83 18 103/70 95 O2 Del Method 02/06/25 11:28 Room Air 02/06/25 07:41 Room Air Laboratory Results 02/06/25 05:35 02/06/25 05:35 PG Care Time/CCT Total # of Minutes Spent Total Time Spent with Patient: Total time spent is greater than 50% in coordination of care (as documented) at patient's floor/unit and/or counseling patient: Coding Level of Care Code 40359 SUB INP/OBS CARE 3/50MIN Diagnoses Abdominal pain R10.9 Abdominal location: unspecified location Small bowel obstruction K56.609 Inflammatory bowel disease K52.9 Tobacco use Z72.0 (1) Abdominal pain Abdominal location: unspecified location Qualified Code(s): R10.9 - Unspecified abdominal pain
[2025-02-06] MEDS: LACTATED RINGER'S 1,000 ML IV SCH (18:14)
[2025-02-06] MEDS: ACETAMINOPHEN 1,000 MG/100 ML VIAL IV PRN (19:29)
[2025-02-07 07:44] LABS: Hematocrit (blood only) 39.5 % (37.0-47.0); Hemoglobin 13.5 g/dl (12.0-16.0); Immature Granulocytes # (auto) 0.03 K/uL (0.01-0.20); Immature Granulocytes % (auto) 0.4 %; Mean Corpuscular Hemoglobin 30.8 pg (25.0-34.0); Mean Corpuscular Volume 90.0 fL (80.0-100.0); Platelet Count 322 K/uL (130-400); RDW Standard Deviation 43.5 fL (36.4-46.3); Red Blood Count 4.39 M/uL (4.20-5.40); White Blood Count 8.39 K/ul (4.8-10.8)
[2025-02-07 08:03] LABS: Anion Gap 7.0 (3-11); Blood Urea Nitrogen 8.0 mg/dl (6-23); Calcium 8.5 mg/dl (8.6-10.3); Carbon Dioxide 24.0 mmol/L (21-32); Chloride 107.0 mmol/L (98-107); Creatinine Clr Calc Pharmacy 105.0 ml/min; Glucose 81.0 mg/dl (70-99(Fasting)); Potassium 3.8 mmol/L (3.5-5.1); Sodium 138.0 mmol/L (136-145)
--- NOTE | 2025-02-07 08:03 | Surgery Progress Note ---
Date of Service February 07, 2025 Assessment & Plan (1) Abdominal pain: Plan: Clinically improving. Will check KUB today. If improved will initiate a diet. Will continue to follow along while she is in the hospital however no current plans for surgical intervention (2) Small bowel obstruction: Admission and Anticipated Discharge Date Admission Date: February 05, 2025 Subjective Feeling better. No abdominal pain or nausea. She is passing some flatus but no bowel movement yet. Physical Exam Constitutional: WD/WN, vitals as above no acute distress and not ill appearing Eyes: PERRL, conjunctivae normal, anicteric sclerae EOM intact bilaterally ENMT: external ear and nose normal, oropharynx normal Ears: no hearing impairment Neck: trachea midline, no thyromegaly Respiratory: normal respiratory effort; no respiratory distress and does not use accessory muscles Cardiovascular: Rate/Rhythm: regular rate and regular rhythm Gastrointestinal (Abdomen): normal bowel sounds, soft, nontender, no hepatosplenomegaly Skin: no rashes, warm and dry Psychiatric: Orientation: alert, oriented x 3 and cooperative Results & Data Vital Signs (Past 12 Hours) Vital Signs Temp Pulse Resp BP Pulse Ox O2 Del Method 02/06/25 23:38 36.7 C 78 12 112/68 95 Room Air PG Care Time/CCT Total # of Minutes Spent Total Time Spent with Patient: Total time spent is greater than 50% in coordination of care (as documented) at patient's floor/unit and/or counseling patient: Coding Level of Care Code 63969 SUB INP/OBS CARE 07/28MIN Diagnoses Abdominal pain R10.9 Abdominal location: unspecified location Small bowel obstruction K56.609 (1) Abdominal pain Abdominal location: unspecified location Qualified Code(s): R10.9 - Unspecifi ed abdominal pain
--- NOTE | 2025-02-07 09:34 | XRay Report ---
KUB HISTORY: SBO COMPARISON STUDY: 06/13/2022 FINDINGS: There is moderate retained stool. There are a few mildly distended small bowel loops measur ing up to 4 cm greatest diameter, improved. No colonic distention seen. IMPRESSION: Mild small bowel distention, improved. ACT 112: Negative or not required by law. The above report was generated using voice recognition software. It may contain grammatical, syntax o r spelling errors. Electronically signed by: Silvestre Sevilla M.D. 02/07/2025 9:33 AM
[2025-02-07] MEDS ORDERED: PHENTERMINE 30 MG PO SCH (11:00)
--- NOTE | 2025-02-07 11:19 | Gastroenterology Progress Note ---
Date of Service February 07, 2025 Assessment & Plan (1) Small bowel obstruction: Plan Patient is starting to feel better. She is passing gas but not moving her bowels. - can try a dulcolax supp to see if this helps get her bowels moving. Admission and Anticipated Discharge Date Admission Date: February 05, 2025 Subjective Patient is feeling better today. she is passing gas, but no bowel movements as of yet. The remainder of the GI ROS were unremarkable. KUB 02/07/25 Mild small bowel distention, improved. Review of Systems Review of Systems: All systems reviewed & are unremarkable except as noted in HPI & below Physical Exam Constitutional: WD/WN, vitals as above Respiratory: normal respiratory effort, lungs clear to auscultation Cardiovascular: Rate/Rhythm: regular rate and regular rhythm Gastrointestinal (Abdomen): hypoactive bowel sounds, soft, nontender, some distention. Psychiatric: Orientation: alert and oriented x 3 Affect: euthymic affect Results & Data Results & Data Vital Signs (Past 12 Hours) Vital Signs Temp Pulse Resp BP Pulse Ox O2 Del Method 02/07/25 08:02 98.0 F 79 16 108/69 96 Room Air 02/06/25 23:38 98.1 F 78 12 112/68 95 Room Air Coding Level of Care Code 92860 SUB INP/OBS CARE 2/35MIN Diagnoses Small bowel obstruction K56.609
[2025-02-07] MEDS: MONTELUKAST SODIUM 10 MG TABLET PO SCH (11:36)
[2025-02-07] MEDS: DICLOFENAC SODIUM 75 MG TABCR PO SCH (11:36)
--- NOTE | 2025-02-07 12:02 | Hospitalist Progress Note ---
Date of Service February 07, 2025 Assessment & Plan (1) Abdominal pain: Plan: Present on admission. Now resolved (2) Small bowel obstruction: Plan: Appears to be resolving. KUB done today, February 07, looks better. She is now passing flatus. Appreciate general surgery consultation and recommendations. Clear liquid diet has been started and IV fluids tapered down. Hopefully her diet can be advanced quickly. Usual oral medications have been restarted. We do not have phentermine on our formulary and this will be restarted at discharge. (3) Inflammatory bowel disease: Plan: Suggested by appearance of abdominal CT scan. GI consultation recommendations appreciated. She will need colonoscopy at a later date (4) Tobacco use: Plan: Smoking cessation recommended Plan Hopeful discharge to home tomorrow, February 08. Admission and Anticipated Discharge Date Admission Date: February 05, 2025 Subjective Improving. She is passing flatus and the KUB x-ray done today, February 07, looks to be improved. Clear liquid diet has been started and IV fluids tapered down. Hopefully she can go home tomorrow, February 08. Appreciate surgery consultation and recommendations. GI service has indicated that she will need a colonoscopy at a later date to evaluate her for presence of inflammatory bowel disease. Review of Systems 2 Review of Systems: Constitutionalno fever or chills ENTno blurred vision, no double vision, no epistaxis, no sore throat Respiratoryno cough, no wheezing, no shortness of breath Cardiacno palpitations, no chest pain, no syncope GIdenies vomiting. No bowel movement yet. GUno urinary retention, no urinary incontinence, no dysuria, no hematuria Musculoskeletalno joint pain, no muscle tenderness Skinno bruising, no rashes, no pruritus Neurono isolated weakness, no paresthesia, no weakness Psychno depression, no anxiety Physical Exam 2 Physical Exam: General-alert and oriented x3, no fever, no chills HEENT-head atraumatic and normocephalic, pupils equal and reactive to light, extraocular muscles intact Neck-no lymphadenopathy or thyromegaly, trachea midline Chest-clear to auscultation. No rales, wheezing or rhonchi Cardiac-regular rate and rhythm, normal S1 and S2 Abdomen-abdomen is nondistended. Bowel sounds are hypoactive but present. No palpable masses. No focal tenderness Extremities-no cyanosis, clubbing, or edema Neuro-cranial nerves II through XII intact, motor and sensory function within normal limits, strength symmetrical, no focal deficits Psych-normal affect, normal mood Results & Data Results & Data Vital Signs (Past 12 Hours) Vital Signs Temp Pulse Resp BP Pulse Ox O2 Del Method 02/07/25 08:02 36.7 C 79 16 108/69 96 Room Air Laboratory Results 02/07/25 07:24 02/07/25 07:24 PG Care Time/CCT Total # of Minutes Spent Total Time Spent with Patient: Total time spent is greater than 50% in coordination of care (as documented) at patient's floor/unit and/or counseling patient: Coding Level of Care Code 26522 SUB INP/OBS CARE 3/50MIN Diagnoses Abdominal pain R10.9 Abdominal location: unspecified location Small bowel obstruction K56.609 Inflammatory bowel disease K52.9 Tobacco use Z72.0 (1) Abdominal pain Abdominal location: unspecified location Qualified Code(s): R10.9 - Unspecified abdominal pain
[2025-02-07] MEDS: ONDANSETRON INJ 2 MG/ML 2 ML VIAL IV PRN (18:58)
[2025-02-07] MEDS ORDERED: MoRPHine SULFATE 2 MG/ML CARP IV PRN (19:15)
[2025-02-07] MEDS: MoRPHine SULFATE 2 MG/ML CARP IV PRN (19:22)
[2025-02-07] MEDS: LORATADINE 10 MG TAB PO SCH (20:44)
[2025-02-07 22:49] VITALS: RESP 16; O2SAT 95
[2025-02-08 07:29] LABS: Hematocrit (blood only) 41.1 % (37.0-47.0); Hemoglobin 14.1 g/dl (12.0-16.0); Immature Granulocytes # (auto) 0.02 K/uL (0.01-0.20); Immature Granulocytes % (auto) 0.3 %; Mean Corpuscular Hemoglobin 30.9 pg (25.0-34.0); Mean Corpuscular Volume 89.9 fL (80.0-100.0); Platelet Count 350 K/uL (130-400); RDW Standard Deviation 43.1 fL (36.4-46.3); Red Blood Count 4.57 M/uL (4.20-5.40); White Blood Count 7.47 K/ul (4.8-10.8)
[2025-02-08 07:44] LABS: Anion Gap 7.0 (3-11); Blood Urea Nitrogen 7.0 mg/dl (6-23); Calcium 8.7 mg/dl (8.6-10.3); Carbon Dioxide 27.0 mmol/L (21-32); Chloride 106.0 mmol/L (98-107); Creatinine Clr Calc Pharmacy 94.1 ml/min; Glucose 93.0 mg/dl (70-99(Fasting)); Potassium 3.7 mmol/L (3.5-5.1); Sodium 140.0 mmol/L (136-145)
[2025-02-08 07:55] VITALS: BP 110/70; PULSE 80; TEMP 98.2
--- NOTE | 2025-02-08 08:56 | Surgery Progress Note ---
Date of Service February 08, 2025 Assessment & Plan (1) Small bowel obstruction: Plan: doing ok from our standpoint will advance diet no surgical intervention indicated Dr. Howard covering for weekend Admission and Anticipated Discharge Date Admission Date: February 05, 2025 Subjective pt seen. had some nausea last evening. passed gas and now feels great. wants to go home . no pain or nausea Physical Exam Constitutional: WD/WN, vitals as above no acute distress and not ill appearing Eyes: PERRL, conjunctivae normal, anicteric sclerae EOM intact bilaterally ENMT: external ear and nose normal, oropharynx normal Ears: no hearing impairment Neck: trachea midline, no thyromegaly Respiratory: normal respiratory effort; no respiratory distress and does not use accessory muscles Cardiovascular: Rate/Rhythm: regular rate and regular rhythm Gastrointestinal (Abdomen): normal bowel sounds, soft, nontender, no hepatosplenomegaly Skin: no rashes, warm and dry Psychiatric: Orientation: alert, oriented x 3 and cooperative Results & Data Vital Signs (Past 12 Hours) Vital Signs Temp Pulse Pulse Resp BP Pulse Ox O2 Del Method 02/08/25 07:53 36.8 C 80 16 110/70 95 Room Air 02/07/25 22:48 36.5 C 67 16 104/60 95 Room Air PG Care Time/CCT Total # of Minutes Spent Total Time Spent with Patient: Total time spent is greater than 50% in coordination of care (as documented) at patient's floor/unit and/or counseling patient: Coding Level of Care Code 71083 SUB INP/OBS CARE 07/28MIN Diagnoses Small bowel obstruction K56.609
--- NOTE | 2025-02-08 10:39 | Discharge Summary ---
Discharge Summary Date of Service February 08, 2025 Principal Dx & Hospital Course #1 = Principal Diagnosis (1) Abdominal pain: Present on admission. Now resolved (2) Small bowel obstruction: Appears to be resolving. KUB done today, February 07, looks better. She is now passing flatus. Appreciate general surgery consultation and recommendations. Diet has been advanced. She continues to pass flatus and has had a small bowel movement. Usual oral medications have been restarted. We do not have phentermine on our formulary and this will be restarted at discharge. (3) Inflammatory bowel disease: Suggested by appearance of abdominal CT scan. GI consultation recommendations appreciated. She will need colonoscopy at a later date (4) Tobacco use: Smoking cessation recommended Plan Home today, February 08. She will remain on Colace 100 mg twice a day going forward. She was advised to see her PCP as soon as possible for referral to crab catcher for outpatient colonoscopy in the near future. Admission HPI Per Admitting Provider Suzy Saucedo is a 54-year-old female with history of prior bowel obstructions, history of total abdominal hysterectomy as well as laparoscopy for adhesions presenting with abdominal pain. Last night 02/04/2025 around 21:00 patient developed severe upper abdominal pain and bloating as well as distention. Patient also with nausea but no vomiting. She had a bowel movement this morning around 05:00reports it being soft with some blood on the toilet paper, no blood in the stool or in the bowl. No relief of abdominal pain after her bowel movement. Her symptoms continued through the day so she came to the hospital. She has had no additional bowel movements nor passed flatus since 05:00. She has had some sweats and chills. Otherwise denies chest pain, cough, urinary complaints In the ER she is afebrile, hemodynamically stable and nontoxic in appearance ER course: Morphine Zofran Normal saline Discharge Exam General-alert and oriented x3, no fever, no chills HEENT-head atraumatic and normocephalic, pupils equal and reactive to light, extraocular muscles intact Neck-no lymphadenopathy or thyromegaly, trachea midline Chest-clear to auscultation. No rales, wheezing or rhonchi Cardiac-regular rate and rhythm, normal S1 and S2 Abdomen-abdomen is nondistended. Bowel sounds are hypoactive but present. No palpable masses. No focal tenderness Extremities-no cyanosis, clubbing, or edema Neuro-cranial nerves II through XII intact, motor and sensory function within normal limits, strength symmetrical, no focal deficits Psych-normal affect, normal mood Discharge Plan Discharge Items Patient Disposition: Home - Self-Care Reason For Visit: BOWEL OBSTRUCTION Discharge Diagnosis: Small bowel obstruction, possible inflammatory bowel disease Condition on Discharge: Good Activity: Resume your previous activity Non-emergency contact: Primary Care Provider and Mailing Specialist Call non-emergency contact if: your symptoms worsen Follow-up/Referrals: Colton No MD [Primary Care Provider] - Diet: Regular Addtl Attending Provider Instructions: Take docusate stool softener 100 mg twice daily. All other medications remain the same. Follow-up with your primary care provider for referral to gastroenterology as soon as possible. You should have an outpatient colonoscopy done Pending Studies at Discharge: No Stand-Alone Forms: [facility] Snip[employer], Smoking Cessation Medications and DC Order Prescriptions: New docusate sodium [Colace] 100 mg capsule 100 mg PO BID Qty: 1 0RF Continued Unisom SleepMelts 25 mg Tablet,Disintegrating 25 mg PO HS Trelegy Ellipta 200-62.5-25 mcg blister with device 1 ea INHALATION QAM phentermine 30 mg capsule 30 mg PO QAM diclofenac sodium 75 mg tablet,delayed release (DR/EC) 75 mg PO AMHS loratadine 10 mg tablet 10 mg PO QPM gabapentin 300 mg capsule 300 mg PO BID PRN (Reason: arm nerve pain) albuterol sulfate 90 mcg/actuation Hfa Aerosol Inhaler 2 puff INHALATION Q4 PRN (Reason: Wheezing) montelukast 10 mg tablet 10 mg PO QAM fluticasone propionate 50 mcg/actuation spray,suspension 2 spray INTRANASAL AMHS Discharge Orders: Discharge Order (Routine); Ordered 02/08/25 Ordered By: Raul Lee Admission Data Admit Date/Time: 02/05/25 20:06 Attending Provider: Raul Lee Admit Provider: Maura Chase Primary Care Provider: Colton No Other Providers: Yohan Farrell; Maura Chase; Jake Horne; Brijesh Boland; Carolina Galvan; Elizabeth De Paz; Brandie Soto; Chula Cook; Hai Marquez; Ru Chester; Nba Leung; Kevin Koch; Silvana Borrero; Kiki Dutta; Sheyla Butterfield; Tamela Archibald; Tam Felix; Teja Brumfield; Percy Anderson; Gin Velez; Joselin Guevara Jr; Daniel Griffin; Ascencion Cartwright; Michael Soto; Ralf Cordoba; Karishma Russell; Thomas Dow I; Svitlana Hidalgo; Amadeo Smith; Eamon Deleon; Len Long; Esau Mendez Hospital Stay Data Consultations 02/05/25 19:29 ED Decision to Admit Stat 02/05/25 20:06 Consult General Surgery Routine 02/06/25 08:19 Consult Gastroenterology Routine Diagnostic Imagining Performed 02/05/25 17:57 CT abd pelvis IV con only Stat Pending Results Patient Have Any Pending Studies at Discharge: No Discharge Instructions Given to Patient (Per Discharging Provider) Take docusate stool softener 100 mg twice daily. All other medications remain the same. Follow-up with your primary care provider for referral to gastroenterology as soon as possible. You should have an outpatient colonoscopy done Total Time Total Time Spent Total Time Spent (In Minutes): 45 minutes Coding Level of Care Code 05006 INP/OBS DISCH >30 MIN Diagnoses Abdominal pain R10.9 Abdominal location: unspecified location Small bowel obstruction K56.609 Inflammatory bowel disease K52.9 Tobacco use Z72.0
--- NOTE | 2025-02-08 10:41 | Gastroenterology Progress Note ---
Date of Service February 08, 2025 Assessment & Plan (1) Small bowel obstruction: Plan: Patient is feeling better. set for discharge today. Will recommend an outpatient colonoscopy be done given question of crohn's disease on imaging. will have outpatient office set this up. Admission and Anticipated Discharge Date Admission Date: February 05, 2025 Subjective Patient tells me that she had a large bowel movement yesterday after her suppository. she is passing gas. no pain. she wishes to go home and is set for discharge today. Review of Systems Review of Systems: All systems reviewed & are unremarkable except as noted in HPI & below Physical Exam Constitutional: WD/WN, vitals as above Respiratory: normal respiratory effort, lungs clear to auscultation Cardiovascular: Rate/Rhythm: regular rate and regular rhythm Gastrointestinal (Abdomen): normal bowel sounds, soft, nontender, no hepatosplenomegaly Psychiatric: Orientation: alert and oriented x 3 Affect: euthymic affect Results & Data Results & Data Vital Signs (Past 12 Hours) Vital Signs Temp Pulse Pulse Resp BP Pulse Ox O2 Del Method 02/08/25 09:06 Room Air 02/08/25 07:53 98.2 F 80 16 110/70 95 Room Air 02/07/25 22:48 97.7 F 67 16 104/60 95 Room Air Coding Level of Care Code 33227 SUB INP/OBS CARE 07/28MIN Diagnoses Small bowel obstruction K56.609
--- NOTE | 2025-02-08 11:01 | XRay Report ---
KUB HISTORY: eval sbo COMPARISON STUDY: 02/07/2025 FINDINGS: There is persistent small bowel distention measuring up to 5 cm diameter, increased. No col onic distention. There is mild retained stool. IMPRESSION: Increased small bowel distention. ACT 112: Negative or not required by law. The above report was generated using voice recognition software. It may contain grammatical, syntax o r spelling errors. Electronically signed by: Silvestre Sevilla M.D. 02/08/2025 11:00 AM
== END 2025-02-08 12:45 | disposition home or self-care (01) | DRG 389 ==
LOC: ED 17:50 → 3N 20:06 → SUATTDRO 20:06 → 3N 22:12

== ENCOUNTER 2025-02-10 15:52 | Inpatient (IN) ==
--- NOTE | 2025-02-10 16:43 | Emergency Department Note ---
Impression & Plan Small bowel obstruction, Nausea ED Provider Note Provider: Benoit Samaniego MD CHIEF COMPLAINT: Abdominal pain, nausea and vomiting HISTORY OF PRESENT ILLNESS: Patient is a 54-year-old female history of approximate 3 prior bowel obstruction as well as prior total hysterectomy presenting here today with upper abdominal discomfort and nausea developing over the last day or 2. Was recently hospitalized here for small bowel obstruction. Things were improving but then worsened when she got home she states. No falls. No bowel movements has had a little gas. Vomited upon arrival here. Having some chills but no fevers. Feeling quite uncomfortable and Tylenol is not helping with the pain. Pain is severe by her report. PAST MEDICAL HISTORY: As noted above MEDICATIONS: Reviewed home medications SOCIAL HISTORY: Smoker PHYSICAL EXAM: GENERAL: alert and oriented on stretcher appears somewhat uncomfortable Head: normocephalic and atraumatic EYES: No injection, discharge or icterus. EOMI. NECK: Trachea midline. ENT: Mucous membranes pink and moist. LUNGS: Airway patent. No retractions. Breath sounds clear with good air entry bilaterally. HEART: Regular rate and rhythm. No chest wall tenderness ABDOMEN: Mild to moderately distended. Upper abdominal tenderness. SKIN: Acyanotic, warm, dry, without rashes EXTREMITIES: Without swelling, tenderness or deformity NEUROLOGICAL: No focal deficits. No aphasia. No facial droop or slurred speech. Ambulatory. EK beats. Normal sinus rhythm. No PVC or PAC. No acute ST segment elevation or depression with a QTc of 448. T wave flattening with a bit of baseline artifact noted. CONTINUOUS CARDIAC MONITORING: was ordered and showed a heart rate of bpm in Patient's laboratory studies and imaging reviewed. Differential includes Gastroenteritis, food borne illness, infections, appendicitis, diverticulitis, inflammatory bowel disease, obstruction, GI bleed, biliary pathology, volvulus, as well as other pathologies. IMPRESSION/MEDICAL DECISION MAKING: IV concerns given recent hospitalization and history is for recurrent obstruction. Patient during recent hospitalization question if she may have a component of IBD. Inflammatory markers are sent. No fevers reported or trauma. Given IV fluids, Zofran, and morphine here initially for pain. Sent for CT scan to further evaluate bowel and look for other intra-abdominal processes. EKG obtained and troponin but lower suspicion this is cardiac. Blood work here without anemia or leukocytosis. No severe electrolyte abnormality signs of renal dysfunction. No transaminitis or evidence of hepatitis/pancreatitis. ESR stably elevated at 47 compared to previous but CRP is more elevated 2.3 today. Patient is having improvement of her symptoms after medication. Sent for CT scan of the abdomen pelvis. Per radiology report this shows evidence of small bowel obstruction and dilated bowel loops. Discussed with patient NG tube is placed. Will bring in for further care. KUB completed for NG tube placement and given some additional morphine for placement. DIAGNOSIS: SBO, nausea vomiting DISPOSITION: Hospitalist will evaluate Patient was agreeable with this plan. Past Med/Surg History Problem List (Updated 02/10/25 @ 19:39 by Benoit Samaniego M.D.) Nausea (Acute) Tobacco use Inflammatory bowel disease Abdominal pain (Acute) Small bowel obstruction (Acute) Medical History Bowel obstruction Surgical History H/O: hysterectomy Social History Smoking Status: Current every day smoker Tobacco Type: Cigarettes Second Hand Exposure: Yes; Do You Dip or Chew Tobacco: No; Hx Alcohol Use: No Hx Substance Use: No Preferred Language: Albanian Communication Ability: Effective Stop Attacher Required: No Beliefs That Will Affect Care: None Current Living Situation: Spouse Feels Safe at Home: Yes Assistive Devices: None Allergies Allergies Allergy/AdvReac Type Severity Reaction Status Date / Time cefuroxime [From Ceftin] Allergy Intermediate ITCHY RASH Verified 02/05/25 21:22 cephalexin [From Keflex] Allergy Intermediate ITCHY RASH Verified 02/05/25 21:22 erythromycin base Allergy Intermediate ITCHY RASH Verified 02/05/25 21:22 Penicillins Allergy Intermediate ITCHY RASH Verified 02/05/25 21:22 Tetracyclines Allergy Intermediate ITCHY RASH Verified 02/05/25 21:22 Home Meds Home Medications Medication Instructions Recorded Confirmed diphenhydramine HCl 25 mg 25 mg PO HS Sleep 06/13/22 02/10/25 disintegrating tablet (Unisom SleepMelts) albuterol sulfate 90 mcg/actuation 2 puff inhalation Q4 PRN Wheezing 02/05/25 02/10/25 aerosol inhaler diclofenac sodium 75 mg 75 mg PO AMHS 02/05/25 02/10/25 tablet,delayed release fluticasone fur. 200 mcg-umeclid 1 ea inhalation QA 02/05/25 02/10/25 62.5 mcg-vilant 25 mcg inhalat.powder (Trelegy Ellipta) fluticasone propionate 50 2 spray intranasal AMHS 02/05/25 02/10/25 mcg/actuation nasal spray,suspension gabapentin 300 mg capsule 300 mg PO BID PRN arm nerve pain 02/05/25 02/10/25 loratadine 10 mg tablet 10 mg PO QPM 02/05/25 02/10/25 montelukast 10 mg tablet 10 mg PO QAM 02/05/25 02/10/25 phentermine 30 mg capsule 30 mg PO QAM 02/05/25 02/10/25 Previous Rx's Medication Instructions Recorded docusate sodium 100 mg capsule 100 mg PO BID #1 cap 02/08/25 (Colace) Results & Data (ED) Vital Signs Vital Signs - 24 hr 02/10/25 16:09 02/10/25 17:12 02/10/25 17:52 Temperature 36.6 C Temperature Source Oral Pulse Rate 97 H 84 Pulse Rate [Right Finger] 79 Respiratory Rate 18 18 Respiratory Effort / Characteristics Non-Labored Spontaneous Non-Labored Spontaneous Respiratory Depth Normal Normal Respiratory Pattern Regular Blood Pressure 110/76 Blood Pressure [Right Arm] 117/79 Blood Pressure Mean 87 Blood Pressure Mean [Right Arm] 91 Pulse Oximetry 98 96 Oxygen Delivery Method Room Air Room Air Sepsis Recent Fever Within 48 Hours No Sepsis New/Unexplained Change in Mental Status N/A Sepsis Action Taken by Nursing No Action Required 02/10/25 19:00 Temperature Temperature Source Pulse Rate Pulse Rate [Right Finger] 86 Respiratory Rate 20 Respiratory Effort / Characteristics Non-Labored Accessory Muscle Use Respiratory Depth Normal Respiratory Pattern Blood Pressure Blood Pressure [Right Arm] 127/67 Blood Pressure Mean Blood Pressure Mean [Right Arm] 87 Pulse Oximetry 97 Oxygen Delivery Method Room Air Sepsis Recent Fever Within 48 Hours Sepsis New/Unexplained Change in Mental Status Sepsis Action Taken by Nursing Laboratory Data 02/10/25 16:29 02/10/25 16:29 Lab Results 02/10/25 02/10/25 Range/Units 16:29 18:20 WBC 8.33 (4.8-10.8) K/ul RBC 5.19 (4.20-5.40) M/uL Hgb 15.6 (12.0-16.0) g/dl Hct 46.2 (37.0-47.0) % MCV 89.0 (80.0-100.0) fL MCH 30.1 (25.0-34.0) pg MCHC 33.8 (32.0-36.0) g/dL RDW Std Deviation 43.8 (36.4-46.3) fL RDW Coeff of Nathen 13.5 (11.5-14.5) % Plt Count 416 H (130-400) K/uL MPV 9.0 L (9.4-12.4) fL Immature Gran % (Auto) 0.2 % Neut % (Auto) 64.3 % Lymph % (Auto) 25.1 % Murray % (Auto) 6.2 % Eos % (Auto) 4.0 % Baso % (Auto) 0.2 % Neut # (Auto) 5.35 (1.40-6.50) K/uL Lymph # (Auto) 2.09 (1.20-3.40) K/uL Murray # (Auto) 0.52 (0.11-0.59) K/uL Eos # (Auto) 0.33 (0.00-0.50) K/uL Baso # (Auto) 0.02 (0.00-0.20) K/uL Immature Gran # (Auto) 0.02 (0.01-0.20) K/uL ESR 47 H (0-30) mm/hr Sodium 138 (136-145) mmol/L Potassium 3.5 (3.5-5.1) mmol/L Chloride 104 (98-107) mmol/L Carbon Dioxide 26 (21-32) mmol/L Anion Gap 8 (3-11) BUN 12 (6-23) mg/dl Creatinine 0.76 (0.6-1.2) mg/dl Est Cr Clr Drug Dosing 76.1 ml/min eGFR 93.06 BUN/Creatinine Ratio 15.8 (10-20) Glucose 101 H (70-99(Fasting)) mg/dl Calcium 9.5 (8.6-10.3) mg/dl Magnesium 2.0 (1.7-2.4) mg/dl Total Bilirubin 0.6 (0.2-1.0) mg/dl AST 26 (13-39) U/L ALT 23 (7-52) U/L Alkaline Phosphatase 78 (34-104) U/L Troponin I High Sens 3.9 (0-14) pg/ml C-Reactive Protein 2.37 H (0-0.5) mg/dl Total Protein 7.6 (6.0-8.3) gm/dl Albumin 4.5 (3.4-5.0) gm/dl Globulin 3.1 (2.5-4.0) gm/dl Albumin/Globulin Ratio 1.5 (0.9-2) Lipase 53 (11-82) U/L Urine Color Yellow Urine Appearance Clear (Clear) Urine pH 6.0 (4.5-7.5) Ur Specific Willis > 1.045 H (1.000-1.030) Urine Protein Trace H (Negative) Urine Glucose (UA) Negative (Negative) Urine Ketones 2+ H (Negative) Urine Blood Negative (Negative) Urine Nitrite Negative (Negative) Urine Bilirubin Negative (Negative) Urine Urobilinogen Negative (Negative) Ur Leukocyte Esterase Negative (Negative) Urine WBC (Auto) 0-5 (0-5) /hpf Urine RBC (Auto) 3-5 H (0-2) /hpf U Hyaline Cast (Auto) 0-2 (0-2) /lpf U Epithel Cells (Auto) 0-2 (0-2) /hpf Urine Bacteria (Auto) None Seen (None Seen) Calcium Oxalate Crystal Present A (None Prsent) Urine Comment Administered Medications Discontinued Medications Sodium Chloride (Nss) 1,000 mls @ 999 mls/hr IV .Q1H1M ONE Stop: 02/10/25 17:41 Last Infusion: 02/10/25 19:54 Dose: Infused Documented By: Admin: 02/10/25 16:51 Dose: 999 mls/hr Documented By: CTK Ioversol (Optiray 320 100ml) 93 ml IV ONCE ONE Stop: 02/10/25 17:47 Last Admin: 02/10/25 17:46 Dose: 93 ml Documented By: PLW Morphine Sulfate (Morphine Sulfate 4 Mg/Ml 1 Ml Carp\Vial) 4 mg IV NOW STA Stop: 02/10/25 16:42 Last Admin: 02/10/25 16:50 Dose: 4 mg Documented By: CTK Morphine Sulfate (Morphine Sulfate 2 Mg/Ml Carp) 2 mg IV NOW STA Stop: 02/10/25 19:11 Last Admin: 02/10/25 19:21 Dose: 2 mg Documented By: CTK Ondansetron HCl (Ondansetron Inj 2 Mg/Ml 2 Ml Vial) 4 mg IV NOW STA Stop: 02/10/25 16:42 Last Admin: 02/10/25 16:50 Dose: 4 mg Documented By: CTK Imaging Data Radiologist's Impression: Abdomen/Pelvis CT 02/10/25 16:18 CT ABDOMEN and PELVIS with INTRAVENOUS CONTRAST HISTORY: Abdominal pain TECHNIQUE: CT abdomen and pelvis with contrast. IV CONTRAST: 100 mL of OMNIPAQUE 300 ENTERIC CONTRAST: Not Given COMPARISON: CT abdomen pelvis February 05, 2025. FINDINGS: LOWER CHEST: Unremarkable LIVER: No focal lesion identified. Hepatomegaly. GALLBLADDER/BILIARY: Unremarkable gallbladder. No abnormal biliary dilatation. SPLEEN: Unremarkable. PANCREAS: Unremarkable. ADRENALS: Hypodense left adrenal nodule measuring 1.5 cm is probably an adenoma. KIDNEYS: Unremarkable. No stones or hydronephrosis identified. PERITONEUM/RETROPERITONEUM. Small ascites. No lymphadenopathy by size criteria. No aortic aneurysm. GASTROINTESTINAL: Interval worsening of small bowel obstruction with increasingly distended loops of small bowel. Apparent transition point is identified in the left lower pelvis (series 300, image 45; series 2, image 68). Normal appendix REPRODUCTIVE: Hysterectomy. BONES: No acute findings. IMPRESSION: Interval worsening of the small bowel obstruction with an apparent transition point identified in the left lower pelvis. Given evidence of prior hysterectomy in this area, this may represent mechanical obstruction secondary to adhesive changes. Notification to clinician of alert: [facility] ED was notified about above findings by phone on February 10, 2025 at 7:04 PM by Naresh Miller MD. Readback confirmation was obtained. Electronically signed by Naresh Miller 02-10-2025 7:08 PM Discharge Plan Visit Data Chief Complaint: Abdominal Pain Stated Complaint: BOWEL OBSTRUCTION ED Provider: Benoit Samaniego Discharge Problem: Small bowel obstruction, Nausea Patient Disposition: Being Evaluated by Hospitalist Condition: Fair Forms Stand Alone Forms: My [facility] Prescriptions Prescriptions: No Action Unisom SleepMelts 25 mg Tablet,Disintegrating 25 mg PO HS Trelegy Ellipta 200-62.5-25 mcg blister with device 1 ea INHALATION QAM phentermine 30 mg capsule 30 mg PO QAM diclofenac sodium 75 mg tablet,delayed release (DR/EC) 75 mg PO AMHS loratadine 10 mg tablet 10 mg PO QPM gabapentin 300 mg capsule 300 mg PO BID PRN (Reason: arm nerve pain) albuterol sulfate 90 mcg/actuation Hfa Aerosol Inhaler 2 puff INHALATION Q4 PRN (Reason: Wheezing) montelukast 10 mg tablet 10 mg PO QAM fluticasone propionate 50 mcg/actuation spray,suspension 2 spray INTRANASAL AMHS docusate sodium [Colace] 100 mg capsule 100 mg PO BID Qty: 1 0RF Referrals Referrals: Colton No MD [Primary Care Provider] -
[2025-02-10] MEDS: MoRPHine SULFATE 4 MG/ML 1 ML CARP\\VIAL IV STA (16:50)
[2025-02-10] MEDS: ONDANSETRON INJ 2 MG/ML 2 ML VIAL IV STA (16:50)
[2025-02-10] MEDS: SODIUM CHLORIDE 0.9% 1,000 ML IV ONE (16:51)
[2025-02-10 17:09] LABS: Hematocrit (blood only) 46.2 % (37.0-47.0); Hemoglobin 15.6 g/dl (12.0-16.0); Immature Granulocytes # (auto) 0.02 K/uL (0.01-0.20); Immature Granulocytes % (auto) 0.2 %; Mean Corpuscular Hemoglobin 30.1 pg (25.0-34.0); Mean Corpuscular Volume 89.0 fL (80.0-100.0); Platelet Count 416 K/uL (130-400); RDW Standard Deviation 43.8 fL (36.4-46.3); Red Blood Count 5.19 M/uL (4.20-5.40); White Blood Count 8.33 K/ul (4.8-10.8)
[2025-02-10 17:24] LABS: Anion Gap 8.0 (3-11); Bilirubin,Total 0.6 mg/dl (0.2-1.0); Calcium 9.5 mg/dl (8.6-10.3); Carbon Dioxide 26.0 mmol/L (21-32); Chloride 104.0 mmol/L (98-107); Potassium 3.5 mmol/L (3.5-5.1); Sodium 138.0 mmol/L (136-145)
[2025-02-10 17:30] LABS: Alanine Aminotransferase 23.0 U/L (7-52); Albumin Globulin Ratio 1.5 (0.9-2); Alkaline Phosphatase 78.0 U/L (34-104); Blood Urea Nitrogen 12.0 mg/dl (6-23); Creatinine Clr Calc Pharmacy 76.1 ml/min; Globulin 3.1 gm/dl (2.5-4.0); Glucose 101.0 mg/dl (70-99(Fasting)); Lipase 53.0 U/L (11-82); Total Protein 7.6 gm/dl (6.0-8.3)
[2025-02-10] MEDS: OPTIRAY 320 100ml IV ONE (17:46)
--- NOTE | 2025-02-10 19:10 | CT Scan Report ---
CT ABDOMEN and PELVIS with INTRAVENOUS CONTRAST HISTORY: Abdominal pain TECHNIQUE: CT abdomen and pelvis with contrast. IV CONTRAST: 100 mL of OMNIPAQUE 300 ENTERIC CONTRAST: Not Given COMPARISON: CT abdomen pelvis February 05, 2025. FINDINGS: LOWER CHEST: Unremarkable LIVER: No focal lesion identified. Hepatomegaly. GALLBLADDER/BILIARY: Unremarkable gallbladder. No abnormal biliary dilatation. SPLEEN: Unremarkable. PANCREAS: Unremarkable. ADRENALS: Hypodense left adrenal nodule measuring 1.5 cm is probably an adenoma. KIDNEYS: Unremarkable. No stones or hydronephrosis identified. PERITONEUM/RETROPERITONEUM. Small ascites. No lymphadenopathy by size criteria. No aortic aneurysm. GASTROINTESTINAL: Interval worsening of small bowel obstruction with increasingly distended loops of small bowel. Apparent transition point is identified in the left lower pelvis (series 300, image 45; series 2, image 68). Normal appendix REPRODUCTIVE: Hysterectomy. BONES: No acute findings. IMPRESSION: Interval worsening of the small bowel obstruction with an apparent transition point identified in the left lower pelvis. Given evidence of prior hysterectomy in this area, this may represent mechanical obstruction secondary to adhesive changes. Notification to clinician of alert: [facility] was notified about above findings by phone on February 10, 2025 at 7:04 PM by Naresh Miller MD. Readback confirmation was obtained. Electronically signed by Naresh Miller 02-10-2025 7:08 PM
[2025-02-10] MEDS: MoRPHine SULFATE 2 MG/ML CARP IV STA ×2 (19:21→20:28)
[2025-02-10 19:23] LABS: Appearance Urine Clear (Clear); Bacteria Urine Automated None Seen (None Seen); Cast Urine Automated 0-2 /lpf (0-2); Epithelial Cell Urine Auto 0-2 /hpf (0-2); Glucose Urine UA Negative (Negative); WBC Urine Automated 0-5 /hpf (0-5)
--- NOTE | 2025-02-10 19:53 | History & Physical Report ---
Date of Service February 10, 2025 Assessment & Plan (1) Small bowel obstruction: Plan: Assessment and plan below following discussion of case with ED provider and reviewing patient history/pertinent normal/abnormal diagnostic test results. Persistent SBO Possible IBD on imaging from last confinement hx COPD, lung status at baseline ongoing tobacco abuse Admit to MedSurg Bowel rest, continue NGT decompression General Surgery consult re: persistent SBO Outpatient GI follow-up for possible IBD Nicotine patch as needed DVT prophylaxis per Lovenox subcu Full code Text document was generated using [employer] voice recognition software. It may contain grammatical or spelling errors. Kindly contact undersigned for clarification of any documentation item in question. History of Present Illness Chief Complaint: Worsening abdominal pain, nausea vomiting Primary Care Provider: Colton No MD History obtained from patient, family, and records. Medical history significant for COPD, hyperlipidemia, ongoing tobacco abuse. Recent confinement February 05 to [address] abdomen showed bowel obstruction along with ileal hyperenhancement, possible IBD. GI recommended outpatient colonoscopy. Patient still uncomfortable at time of discharge. Upon arrival home, patient worsening abdominal distention/pain associated with emesis. Denies chest pain, SOB. Bowel movements not that good as per patient. No fever, no chills. Patient returned to ER for evaluation. NGT subsequently inserted at the ER. Medical History as above Surgical History : Hysterectomy Family History : Negative IBD Personal/Social history : Half pack daily, no EtOH intake, longterm RN Allergies Allergy/AdvReac Type Severity Reaction Status Date / Time cefuroxime [From Ceftin] Allergy Intermediate ITCHY RASH Verified 02/05/25 21:22 cephalexin [From Keflex] Allergy Intermediate ITCHY RASH Verified 02/05/25 21:22 erythromycin base Allergy Intermediate ITCHY RASH Verified 02/05/25 21:22 Penicillins Allergy Intermediate ITCHY RASH Verified 02/05/25 21:22 Tetracyclines Allergy Intermediate ITCHY RASH Verified 02/05/25 21:22 Home Medications Medication Instructions Recorded Confirmed Type diphenhydramine HCl 25 mg 25 mg PO HS Sleep 06/13/22 02/10/25 History disintegrating tablet (Unisom SleepMelts) albuterol sulfate 90 mcg/actuation 2 puff inhalation Q4 PRN Wheezing 02/05/25 02/10/25 History aerosol inhaler diclofenac sodium 75 mg 75 mg PO AMHS 02/05/25 02/10/25 History tablet,delayed release fluticasone fur. 200 mcg-umeclid 1 ea inhalation QA 02/05/25 02/10/25 History 62.5 mcg-vilant 25 mcg inhalat.powder (Trelegy Ellipta) fluticasone propionate 50 2 spray intranasal AMHS 02/05/25 02/10/25 History mcg/actuation nasal spray,suspension gabapentin 300 mg capsule 300 mg PO BID PRN arm nerve pain 02/05/25 02/10/25 History loratadine 10 mg tablet 10 mg PO QPM 02/05/25 02/10/25 History montelukast 10 mg tablet 10 mg PO QAM 02/05/25 02/10/25 History phentermine 30 mg capsule 30 mg PO QAM 02/05/25 02/10/25 History docusate sodium 100 mg capsule 100 mg PO BID #1 cap 02/08/25 02/10/25 Rx (Colace) Past Med/Surg History Problem List (Updated 02/10/25 @ 19:39 by Benoit Samaniego M.D.) Nausea (Acute) Tobacco use Inflammatory bowel disease Abdominal pain (Acute) Small bowel obstruction (Acute) Medical History Bowel obstruction Surgical History H/O: hysterectomy Social History Smoking Status: Current some day smoker Tobacco Type: Cigarettes Second Hand Exposure: Yes; Do You Dip or Chew Tobacco: No; Hx Alcohol Use: No Hx Substance Use: No Preferred Language: Grenadian Communication Ability: Effective Business Systems Lead Required: No Beliefs That Will Affect Care: None Current Living Situation: Spouse Feels Safe at Home: Yes Assistive Devices: None Review of Systems Review of Systems: As per HPI, all other systems reviewed and negative Physical Exam Physical Exam: GENERAL: Slightly anxious, no respiratory distress SKIN: Normal color, warm HEENT: Bespectacled, Onward palpebral conjunctivae, no ptosis, dry buccal mucosa, NGT in place NECK : Supple, no tenderness CHEST : Decreased breath sounds, no tenderness HEART : RRR, no obvious murmurs ABDOMEN: Distention, central abdominal tenderness EXTREMITIES : No LE swelling/tenderness, palpable pulses, no other conspicuous deformities noted NEUROLOGIC : Coherent, no facial asymmetry, no other gross focality Results & Data Results & Data Vital Signs (Past 12 Hours) Vital Signs Temp Pulse Pulse Resp BP BP Pulse Ox 02/10/25 19:00 86 20 127/67 97 02/10/25 17:52 79 18 117/79 96 02/10/25 17:12 84 02/10/25 16:09 36.6 C 97 H 18 110/76 98 O2 Del Method 02/10/25 19:00 Room Air 02/10/25 17:52 Room Air 02/10/25 17:12 02/10/25 16:09 Room Air Laboratory Results Laboratory Results WBC 8.33 K/ul (4.8-10.8) 02/10/25 16: RBC 5.19 M/uL (4.20-5.40) 02/10/25 16: Hgb 15.6 g/dl (12.0-16.0) 02/10/25 16: Hct 46.2 % (37.0-47.0) 02/10/25 16: MCV 89.0 fL (80.0-100.0) 02/10/25 16: MCH 30.1 pg (25.0-34.0) 02/10/25 16: MCHC 33.8 g/dL (32.0-36.0) 02/10/25 16: RDW Std Deviation 43.8 fL (36.4-46.3) 02/10/25 16: RDW Coeff of Nathen 13.5 % (11.5-14.5) 02/10/25 16: Plt Count 416 K/uL (130-400) H 02/10/25 16: MPV 9.0 fL (9.4-12.4) L 02/10/25 16: Immature Gran % (Auto) 0.2 % 02/10/25 16: Neut % (Auto) 64.3 % 02/10/25 16: Lymph % (Auto) 25.1 % 02/10/25 16: [place] % (Auto) 6.2 % 02/10/25 16: Eos % (Auto) 4.0 % 02/10/25 16:29 Baso % (Auto) 0.2 % 02/10/25 16: Neut # (Auto) 5.35 K/uL (1.40-6.50) 02/10/25 16: Lymph # (Auto) 2.09 K/uL (1.20-3.40) 02/10/25 16: [place] # (Auto) 0.52 K/uL (0.11-0.59) 02/10/25 16: Eos # (Auto) 0.33 K/uL (0.00-0.50) 02/10/25 16: Baso # (Auto) 0.02 K/uL (0.00-0.20) 02/10/25 16: Immature Gran # (Auto) 0.02 K/uL (0.01-0.20) 02/10/25 16:29 ESR 47 mm/hr (0-30) H 02/10/25 16:29 Sodium 138 mmol/L (136-145) 02/10/25 16: Potassium 3.5 mmol/L (3.5-5.1) 02/10/25 16: Chloride 104 mmol/L (98-107) 02/10/25 16: Carbon Dioxide 26 mmol/L (21-32) 02/10/25 16:29 Anion Gap 8 (3-11) 02/10/25 16:29 BUN 12 mg/dl (6-23) 02/10/25 16: Creatinine 0.76 mg/dl (0.6-1.2) 02/10/25 16: Est Cr Clr Drug Dosing 76.1 ml/min 02/10/25 16:29 eGFR 93.06 02/10/25 16: BUN/Creatinine Ratio 15.8 (10-20) 02/10/25 16: Glucose 101 mg/dl (70-99(Fasting)) H 02/10/25 16: Calcium 9.5 mg/dl (8.6-10.3) 02/10/25 16:29 Total Bilirubin 0.6 mg/dl (0.2-1.0) 02/10/25 16: AST 26 U/L (13-39) 02/10/25 16:29 ALT 23 U/L (7-52) 02/10/25 16:29 Alkaline Phosphatase 78 U/L (34-104) 02/10/25 16:29 Troponin I High Sens 3.9 pg/ml (0-14) 02/10/25 16: C-Reactive Protein 2.37 mg/dl (0-0.5) H 02/10/25 16:29 Total Protein 7.6 gm/dl (6.0-8.3) 02/10/25 16: Albumin 4.5 gm/dl (3.4-5.0) 02/10/25 16: Globulin 3.1 gm/dl (2.5-4.0) 02/10/25 16: Albumin/Globulin Ratio 1.5 (0.9-2) 02/10/25 16: Lipase 53 U/L (11-82) 02/10/25 16:29 Urine Color Yellow 02/10/25 18:20 Urine Appearance Clear (Clear) 02/10/25 18:20 Urine pH 6.0 (4.5-7.5) 02/10/25 18:20 Ur Specific [place] > 1.045 (1.000-1.030) H 02/10/25 18:20 Urine Protein Trace (Negative) H 02/10/25 18:20 Urine Glucose (UA) Negative (Negative) 02/10/25 18:20 Urine Ketones 2+ (Negative) H 02/10/25 18:20 Urine Blood Negative (Negative) 02/10/25 18:20 Urine Nitrite Negative (Negative) 02/10/25 18:20 Urine Bilirubin Negative (Negative) 02/10/25 18:20 Urine Urobilinogen Negative (Negative) 02/10/25 18:20 Ur Leukocyte Esterase Negative (Negative) 02/10/25 18:20 Urine WBC (Auto) 0-5 /hpf (0-5) 02/10/25 18:20 Urine RBC (Auto) 3-5 /hpf (0-2) H 02/10/25 18:20 U Hyaline Cast (Auto) 0-2 /lpf (0-2) 02/10/25 18:20 U Epithel Cells (Auto) 0-2 /hpf (0-2) 02/10/25 18:20 Urine Bacteria (Auto) None Seen (None Seen) 02/10/25 18:20 Calcium Oxalate Crystal Present (None Prsent) A 02/10/25 18:20 Urine Comment 02/10/25 18:20 Impressions Abdomen/Pelvis CT 02/10/25 16:18 CT ABDOMEN and PELVIS with INTRAVENOUS CONTRAST HISTORY: Abdominal pain TECHNIQUE: CT abdomen and pelvis with contrast. IV CONTRAST: 100 mL of OMNIPAQUE 300 ENTERIC CONTRAST: Not Given COMPARISON: CT abdomen pelvis February 05, 2025. FINDINGS: LOWER CHEST: Unremarkable LIVER: No focal lesion identified. Hepatomegaly. GALLBLADDER/BILIARY: Unremarkable gallbladder. No abnormal biliary dilatation. SPLEEN: Unremarkable. PANCREAS: Unremarkable. ADRENALS: Hypodense left adrenal nodule measuring 1.5 cm is probably an adenoma. KIDNEYS: Unremarkable. No stones or hydronephrosis identified. PERITONEUM/RETROPERITONEUM. Small ascites. No lymphadenopathy by size criteria. No aortic aneurysm. GASTROINTESTINAL: Interval worsening of small bowel obstruction with increasingly distended loops of small bowel. Apparent transition point is identified in the left lower pelvis (series 300, image 45; series 2, image 68). Normal appendix REPRODUCTIVE: Hysterectomy. BONES: No acute findings. IMPRESSION: Interval worsening of the small bowel obstruction with an apparent transition point identified in the left lower pelvis. Given evidence of prior hysterectomy in this area, this may represent mechanical obstruction secondary to adhesive changes. Notification to clinician of alert: [facility] [address] [facility] ED was notified about above findings by phone on February 10, 2025 at 7:04 PM by Naresh Miller MD. Readback confirmation was obtained. Electronically signed by Naresh Miller 02-10-2025 7:08 PM Diagnostic Findings EKG as per my interpretation :Rate 75, NSR, normal axis, nonspecific T wave abnormalities, multiple artifacts
[2025-02-10 20:09] LABS: Magnesium 2.0 mg/dl (1.7-2.4)
--- NOTE | 2025-02-10 20:36 | XRay Report ---
INDICATION: Abdominal pain TECHNIQUE: Portable supine upright view radiograph of the abdomen was obtained. COMPARISON: CT abdomen pelvis from the same day. FINDINGS: The enteric tube is seen with the tip projecting over the distal esophagus and the sidehole projecting over the mid esophagus. Multiple moderately air distended loops of small bowel are again seen. No radiographic evidence of free air. Organ silhouettes are normal in shape and contour. There is no gross mass effect. There are no abnormal calcific densities. IMPRESSION: The enteric tube is seen with the tip projecting over the distal esophagus and the sidehole projecting over the mid esophagus. Please note that at the time of this dictation, a subsequent radiograph had already been obtained demonstrating appropriate advancement of the enteric tube. Small bowel obstruction as seen in the same-day CT. Electronically signed by Naresh Miller 02-10-2025 8:36 PM
[2025-02-10] MEDS ORDERED: GABAPENTIN 300 MG CAP PO PRN (20:37)
--- NOTE | 2025-02-10 21:22 | XRay Report ---
EXAM: XR KUB/Abdomen 1 view CLINICAL HISTORY: NG tube. TECHNIQUE: X-ray images of the abdomen were obtained in supine position. COMPARISON: 02/10/2025 18:47:00 RAD TECH. FINDINGS: Gas Pattern: Scanned abdomen shows distended stomach with distended left hypochondrial and epigastric bowel loops No evidence of bowel obstruction or distention. Nasogastric tube is seen with the tip in the gastric fundus and its sideholes noted at the gastroesophageal junction, advised further pushing for 6 cm for adequate positioning. Soft Tissues: Soft tissues of the abdomen appear normal without evidence of masses or calcifications. Liver, spleen, and kidneys are of normal size and position. IMPRESSION: 1. Nasogastric tube is seen with the tip in the gastric fundus and its sideholes noted at the gastroesophageal junction, advised further pushing for 6 cm for adequate positioning. 2. Scanned abdomen shows distended stomach with air distended left hypochondrial and epigastric bowel loops. Stable Electronically signed by Edwardo Evans 02-10-2025 9:21 PM
[2025-02-10] MEDS: KETOROLAC TROMETHAMINE 15 MG/ML VIAL IV PRN (21:44)
[2025-02-10] MEDS: NSS + 20MEQ KCL 20 MEQ/1,000 ML BAG IV ONE (21:50)
[2025-02-10] MEDS: diphenhydrAMINE Capsule 25 MG CAP PO SCH (22:14)
[2025-02-10] MEDS: FLUTICASONE PROPIONATE NA SPR 16 GM BTL SCH (22:14)
[2025-02-10] MEDS: PROMETHAZINE 6.25 MG/50.25 ML BAG IV PRN (22:15)
[2025-02-10] MEDS: LORATADINE 10 MG TAB PO SCH (22:15)
[2025-02-10] MEDS ORDERED: CHLORASEPTIC (PHENOL) 1.4% SOLN 180 ML BTL MT PRN (22:26)
[2025-02-11] MEDS: MONTELUKAST SODIUM 10 MG TABLET PO SCH (08:04)
[2025-02-11] MEDS: FLUTICASONE FUROATE 200MCG 14 PUFFS/INHALER INH SCH (08:05)
[2025-02-11] MEDS: UMECLIDINIUM/VILANTEROL 62.5/25MCG 7 PUFFS/INHALER INH SCH (08:05)
[2025-02-11] MEDS: ENOXAPARIN INJ 40 MG/0.4 ML SYR SQ SCH (08:06)
[2025-02-11] MEDS: ONDANSETRON INJ 2 MG/ML 2 ML VIAL IV PRN (08:10)
--- NOTE | 2025-02-11 08:24 | Electrocardiogram Report ---
Test Reason : Blood Pressure : */* mmHG Vent. Rate : 75 BPM Atrial Rate : 75 BPM P-R Int : 122 ms QRS Dur : 88 ms QT Int : 402 ms P-R-T Axes : 43 2 39 degrees QTcB Int : 448 ms Normal sinus rhythm Nonspecific T wave abnormality Abnormal ECG No previous ECGs available Confirmed by Kayla Nguyen (Genevieve) on 02/11/2025 8:23:31 AM Referred By: REFERRED SELF Confirmed By: Kayla Nguyen
--- NOTE | 2025-02-11 08:43 | Surgery Consultation ---
Date of Consultation February 11, 2025 Assessment & Plan (1) Small bowel obstruction: Patient admitted to hospital service for findings of SBO - Patient seen and evaluated early this morning, no signs of acute abdomen that would warrant emergent surgical intervention. Will plan to treat conservatively for now. - NG tube to remain in place today for bowel decompression, continue on low intermittent suction - Keep n.p.o., IV hydration, antiemetics and pain control as needed. - Medical management per primary team, surgery will continue to follow Supervising Physician Co-Signing Physician Notes Patient seen and examined, labs and imaging reviewed, agree with above. History of hysterectomy presented with small bowel obstruction. She was here last week for same. She had some improvement in her symptoms and had a small bowel mov ement prior to discharge, however she started having the symptoms shortly after departing on Tuesday. She is not currently passing gas. She did have an NG tube placed in the ER. On exam she is afebrile with stable vitals, her abdomen is soft, moderately distended, mildly tender to palpation with no guarding or rebound. Labs unremarkable. CT personally viewed and interpreted and agree with the assessment of a small bowel obstruction. On her prior CT scan there was fecalization of the small bowel, on this it is mostly liquid. Will continue with nonoperative intervention. History of Present Illness Reason for Consultation: SBO History of Present Illness Patient is a 54-year-old female who presented to the emergency department last evening with complaints of upper abdominal pain, nausea, and vomiting. To note, the patient was recently just hospitalized here for small bowel obstruction from 02/06 - 02/08 for which she was treated conservatively for and was discharged home. Patient states that at home she felt back to her normal self, however her symptoms shortly restarted and had worsened over the last day. Patient states that she has had associated bloating, nausea and vomiting and has not had a bowel movement or passed gas which prompted her come back to the emergency department. Upon workup she underwent CT imaging which demonstrated worsening small bowel obstruction with transition in the left lower pelvis. Patient was admitted to the hospitalist service and surgery was consulted. Patient was seen and evaluated early this morning at bedside, she is resting comfortably in bed, vital signs stable, and is nontoxic-appearing. Patient states that she does feel significantly better after having an NG tube placed last evening. Patient still denies passing any gas and no bowel movement since admission. Allergies Allergy/AdvReac Type Severity Reaction Status Date / Time cefuroxime [From Ceftin] Allergy Intermediate ITCHY RASH Verified 02/05/25 21:22 cephalexin [From Keflex] Allergy Intermediate ITCHY RASH Verified 02/05/25 21:22 erythromycin base Allergy Intermediate ITCHY RASH Verified 02/05/25 21:22 Penicillins Allergy Intermediate ITCHY RASH Verified 02/05/25 21:22 Tetracyclines Allergy Intermediate ITCHY RASH Verified 02/05/25 21:22 Home Medications Medication Instructions Recorded Confirmed Type diphenhydramine HCl 25 mg 25 mg PO HS Sleep 06/13/22 02/10/25 History disintegrating tablet (Unisom SleepMelts) albuterol sulfate 90 mcg/actuation 2 puff inhalation Q4 PRN Wheezing 02/05/25 02/10/25 History aerosol inhaler diclofenac sodium 75 mg 75 mg PO AMHS 02/05/25 02/10/25 History tablet,delayed release fluticasone fur. 200 mcg-umeclid 1 ea inhalation QA 02/05/25 02/10/25 History 62.5 mcg-vilant 25 mcg inhalat.powder (Trelegy Ellipta) fluticasone propionate 50 2 spray intranasal AMHS 02/05/25 02/10/25 History mcg/actuation nasal spray,suspension gabapentin 300 mg capsule 300 mg PO BID PRN arm nerve pain 02/05/25 02/10/25 History loratadine 10 mg tablet 10 mg PO QPM 02/05/25 02/10/25 History montelukast 10 mg tablet 10 mg PO QAM 02/05/25 02/10/25 History phentermine 30 mg capsule 30 mg PO QAM 02/05/25 02/10/25 History docusate sodium 100 mg capsule 100 mg PO BID #1 cap 02/08/25 02/10/25 Rx (Colace) Patient History Medical History Bowel obstruction Surgical History H/O: hysterectomy Social History Smoking Status: Current some day smoker Tobacco Type: Cigarettes Second Hand Exposure: Yes; Do You Dip or Chew Tobacco: No; Hx Alcohol Use: No Hx Substance Use: No Preferred Language: Belgian Communication Ability: Effective Fiberglass Finisher Required: No Beliefs That Will Affect Care: None Current Living Situation: Spouse Feels Safe at Home: Yes Assistive Devices: None Review of Systems Constitutional: no fever, no body aches and no weakness Respiratory: no cough and no dyspnea Cardiovascular: no chest pain, no palpitations and no syncope Gastrointestinal: + abdominal pain, + bloating, + nausea a nd + vomiting Genitourinary: no dysuria, no difficulty urinating and no hematuria Physical Exam Constitutional: WD/WN, vitals as above Respiratory: normal respiratory effort, lungs clear to auscultation Cardiovascular: RRR, no murmur, no edema Gastrointestinal (Abdomen): Abdomen soft, nondistended, +TTP in the upper abdomen without any rebound or guarding NGT in place, gastric output in canister Skin: no rashes, warm and dry Results & Data Vital Signs (Past 12 Hours) Vital Signs Temp Pulse Pulse Resp BP BP Pulse Ox 02/11/25 07:18 36.7 C 90 18 101/65 94 02/10/25 22:28 36.6 C 84 16 116/77 96 02/10/25 21:15 O2 Del Method 02/11/25 07:18 Room Air 02/10/25 22:28 Room Air 02/10/25 21:15 Room Air Diagnostic Findings CT ABDOMEN and PELVIS with INTRAVENOUS CONTRAST HISTORY: Abdominal pain TECHNIQUE: CT abdomen and pelvis with contrast. IV CONTRAST: 100 mL of OMNIPAQUE 300 ENTERIC CONTRAST: Not Given COMPARISON: CT abdomen pelvis February 05, 2025. FINDINGS: LOWER CHEST: Unremarkable LIVER: No focal lesion identified. Hepatomegaly. GALLBLADDER/BILIARY: Unremarkable gallbladder. No abnormal biliary dilatation. SPLEEN: Unremarkable. PANCREAS: Unremarkable. ADRENALS: Hypodense left adrenal nodule measuring 1.5 cm is probably an adenoma. KIDNEYS: Unremarkable. No stones or hydronephrosis identified. PERITONEUM/RETROPERITONEUM. Small ascites. No lymphadenopathy by size criteria. No aortic aneurysm. GASTROINTESTINAL: Interval worsening of small bowel obstruction with increasingly distended loops of small bowel. Apparent transition point is identified in the left lower pelvis (series 300, image 45; series 2, image 68). Normal appendix REPRODUCTIVE: Hysterectomy. BONES: No acute findings. IMPRESSION: Interval worsening of the small bowel obstruction with an apparent transition point identified in the left lower pelvis. Given evidence of prior hysterectomy in this area, this may represent mechanical obstruction secondary to adhesive changes. Notification to clinician of alert: [facility] ED was notified about above findings by phone on February 10, 2025 at 7:04 PM by Naresh Miller MD. PG Care Time/CCT Total # of Minutes Spent Total Time Spent with Patient: Total time spent is greater than 50% in coordination of care (as documented) at patient's floor/unit and/or counseling patient: [place] [address] Inpt Consult Level 1 Patient Type Established Medical Decision Making Straight Forward Diagnoses Small bowel obstruction K56.609
[2025-02-11 08:48] LABS: Hematocrit (blood only) 39.1 % (37.0-47.0); Hemoglobin 13.1 g/dl (12.0-16.0); Immature Granulocytes # (auto) 0.02 K/uL (0.01-0.20); Immature Granulocytes % (auto) 0.3 %; Mean Corpuscular Hemoglobin 30.2 pg (25.0-34.0); Mean Corpuscular Volume 90.1 fL (80.0-100.0); Platelet Count 335 K/uL (130-400); RDW Standard Deviation 44.7 fL (36.4-46.3); Red Blood Count 4.34 M/uL (4.20-5.40); White Blood Count 6.24 K/ul (4.8-10.8)
[2025-02-11] MEDS ORDERED: NON-FORMULARY MEDICATION (Fluticasone-Umeclidin-Vilanter [Trelegy Ellipta] 200-62.5-25 mcg INH SCH (09:00)
[2025-02-11 09:11] LABS: Anion Gap 4.0 (3-11); Blood Urea Nitrogen 11.0 mg/dl (6-23); Calcium 8.1 mg/dl (8.6-10.3); Carbon Dioxide 25.0 mmol/L (21-32); Chloride 110.0 mmol/L (98-107); Creatinine Clr Calc Pharmacy 108.8 ml/min; Glucose 77.0 mg/dl (70-99(Fasting)); Potassium 3.8 mmol/L (3.5-5.1); Sodium 139.0 mmol/L (136-145)
--- NOTE | 2025-02-11 19:17 | Hospitalist Progress Note ---
Date of Service February 11, 2025 Assessment & Plan (1) Small bowel obstruction: Plan: Small bowel obstruction --Status post NG tube placement -- positive flatus -- Positive normoactive bowel sounds noted today -- General Surgery consulted, recommend conservative management for now Repeat imaging tomorrow Supportive care, IV fluids Possible IBD on imaging from last confinement hx COPD, lung status at baseline ongoing tobacco abuse DVT prophylaxis per Lovenox subcu Full code Admission and Anticipated Discharge Date Admission Date: February 10, 2025 Subjective resting in bed, not in distress States she feels better compared to yesterday Less abdominal pain Less nausea No fevers or chills Positive flatus No other new symptoms Review of Systems Review of Systems: all noted and negative except for above Physical Exam Physical Exam: General- oriented x 3, not in distress, speaks in sentences with no effort or accessory muscle use Eyes- anicteric Neck- no JVD NG tube in place-with minimal brownish output in the tubing, none in the container Lungs- clear breath sounds bilaterally, no rales/wheezes Heart- normal rate, regular rhythm; no murmurs Abdomen- normal bowel sounds, nondistended, soft, nontender Extremities- no pretibial edema, no calf tenderness Neuro- alert, oriented x 3; no gross focal neurologic deficits Skin- warm & dry Results & Data Results & Data Vital Signs (Past 12 Hours) Vital Signs Temp Pulse Resp BP Pulse Ox O2 Del Method 02/11/25 15:20 36.8 C 82 18 116/73 94 Room Air 02/11/25 07:18 36.7 C 90 18 101/65 94 Room Air all noted and reviewed including below
[2025-02-11] MEDS: D5NSS + 20MEQ KCL 20 MEQ/1,000 ML BAG IV SCH (20:25)
[2025-02-11] MEDS: ACETAMINOPHEN 1,000 MG/100 ML VIAL IV PRN (20:37)
--- NOTE | 2025-02-12 09:53 | Surgery Progress Note ---
Date of Service February 12, 2025 Assessment & Plan (1) Small bowel obstruction: Plan: SBO, passing flatus and feeling better. KUB ordered, follow-up results Potential removal of NG tube later today, possibly start clears No surgical invention at this time Surgical follow, call with questions or concerns Admission and Anticipated Discharge Date Admission Date: February 10, 2025 Subjective Admitted with SBO, NG tube in place. She is feeling better, still some cramping but significantly improved. She has passed some gas. NG tube with minimal output overnight Physical Exam Constitutional: WD/WN, vitals as above Gastrointestinal (Abdomen): Inspection/Auscultation: + abdomen distended (Mild, improved) and + abdominal surgical scar Percussion/Palpation: + abdomen tender (Minimal) and abdomen soft; no guarding and abdomen not rigid Results & Data Vital Signs (Past 12 Hours) Vital Signs Temp Pulse Resp BP Pulse Ox O2 Del Method 02/12/25 07:12 36.7 C 87 19 123/79 96 Room Air 02/11/25 23:17 Room Air PG Care Time/CCT Total # of Minutes Spent Total Time Spent with Patient: Total time spent is greater than 50% in coordination of care (as documented) at patient's floor/unit and/or counseling patient: Coding Level of Care Code 62897 SUB INP/OBS CARE 2/35MIN Diagnoses Small bowel obstruction K56.609
[2025-02-12 11:30] LABS: Anion Gap 9.0 (3-11); Blood Urea Nitrogen 7.0 mg/dl (6-23); Calcium 8.6 mg/dl (8.6-10.3); Carbon Dioxide 25.0 mmol/L (21-32); Chloride 104.0 mmol/L (98-107); Creatinine Clr Calc Pharmacy 128.4 ml/min; Glucose 89.0 mg/dl (70-99(Fasting)); Magnesium 2.0 mg/dl (1.7-2.4); Potassium 3.5 mmol/L (3.5-5.1); Sodium 138.0 mmol/L (136-145)
--- NOTE | 2025-02-12 12:11 | XRay Report ---
KUB HISTORY: small bowel obstruction COMPARISON STUDY: 02/10/2025 FINDINGS: Nasogastric tube tip is in the proximal stomach with the sidehole near the GE junction. The re are multiple dilated small bowel loops at the central to lower abdomen measuring up to 6 cm maximu m diameter. No colonic distention seen. No gross free air. IMPRESSION: Grossly stable small bowel obstruction. ACT 112: Negative or not required by law. The above report was generated using voice recognition software. It may contain grammatical, syntax o r spelling errors. Electronically signed by: Silvestre Sevilla M.D. 02/12/2025 12:10 PM
[2025-02-12] MEDS: PANTOprazole 40 MG/10 ML SYR IV ONE (15:08)
--- NOTE | 2025-02-12 16:03 | Hospitalist Progress Note ---
Date of Service February 12, 2025 Assessment & Plan (1) Small bowel obstruction: Plan: Ms. Saucedo is a medical history significant for COPD, hyperlipidemia, ongoing tobacco abuse admitted for SBO Patient recently discharged from the same. GI evaluated patient and recommended outpatient C-scope; however, patient returns within 48 hours with recurrent SBO and LLQ transition point #Small bowel obstruction --Status post NG tube placement, possible removal today v tomorrow continue flatus today -- General Surgery consulted, recommend conservative management for now Repeat imaging tomorrow Supportive care, IV fluids Consult GI: repeat SBO within 48 hours of discharge, csope sooner than later? #Possible IBD on imaging from last confinement hx COPD, lung status at baseline ongoing tobacco abuse DVT prophylaxis per Lovenox subcu Full code Admission and Anticipated Discharge Date Admission Date: February 10, 2025 Subjective NAEO NGT remains in place with decreased output Reports sore throat, but improved nausea, improved abdominal discomfort +flatus, no BM Physical Exam Constitutional: WD/WN, vitals as above Respiratory: normal respiratory effort, lungs clear to auscultation Cardiovascular: RRR, no murmur, no edema Gastrointestinal (Abdomen): mild tenderness, soft Results & Data Results & Data Vital Signs (Past 12 Hours) Vital Signs Temp Pulse Resp BP BP Pulse Ox O2 Del Method 02/12/25 14:23 36.8 C 93 H 20 130/79 95 Room Air 02/12/25 10:57 36.7 C 90 19 128/75 96 Room Air 02/12/25 07:12 36.7 C 87 19 123/79 96 Room Air Laboratory Results BMP 02/12/25 10:43 Sodium 138 Potassium 3.5 Chloride 104 Carbon Dioxide 25 BUN 7 Creatinine 0.50 L Glucose 89 Calcium 8.6 Medications Administered Home Medications Medication Instructions Recorded Confirmed Last Taken diphenhydramine HCl 25 mg 25 mg PO HS Sleep 06/13/22 02/10/25 02/04/25 disintegrating tablet (Unisom SleepMelts) albuterol sulfate 90 mcg/actuation 2 puff inhalation Q4 PRN Wheezing 02/05/25 02/10/25 Unknown aerosol inhaler diclofenac sodium 75 mg 75 mg PO AMHS 02/05/25 02/10/25 02/05/25 tablet,delayed release fluticasone fur. 200 mcg-umeclid 1 ea inhalation QAM 02/05/25 02/10/25 02/05/25 62.5 mcg-vilant 25 mcg inhalat.powder (Trelegy Ellipta) fluticasone propionate 50 2 spray intranasal AMHS 02/05/25 02/10/25 02/05/25 mcg/actuation nasal am dose spray,suspension gabapentin 300 mg capsule 300 mg PO BID PRN arm nerve pain 02/05/25 02/10/25 Unknown loratadine 10 mg tablet 10 mg PO QPM 02/05/25 02/10/25 02/05/25 montelukast 10 mg tablet 10 mg PO QAM 02/05/25 02/10/25 02/05/25 phentermine 30 mg capsule 30 mg PO QAM 02/05/25 02/10/25 02/05/25 docusate sodium 100 mg capsule 100 mg PO BID #1 cap 02/08/25 02/10/25 Unknown (Colace) Active Medications Generic Name Dose Route Start Last Admin Trade Name Freq PRN Reason Stop Dose Admin Diphenhydramine HCl 25 mg 02/10/25 21:00 02/11/25 20:58 Diphenhydramine Capsule 25 Mg Cap PO 03/12/25 20:59 Not Given HS ED Enoxaparin Sodium 40 mg 02/11/25 09:00 02/12/25 08:32 Enoxaparin Inj 40 Mg/0.4 Ml Syr SQ 03/13/25 08:59 40 mg QAM ED Administration Fluticasone Furoate 1 puffs 02/11/25 09:00 02/12/25 08:32 Fluticasone Furoate 200mcg 14 Puffs/Inhaler INH 03/13/25 08:59 Not Given DAILY ED Fluticasone Propionate 2 sprays 02/10/25 21:00 02/12/25 08:32 Fluticasone Propionate Na Spr 16 Gm Btl NA 03/12/25 20:59 Not Given AMHS ED Acetaminophen 1,000 mg in 100 mls @ 400 mls/hr 02/10/25 20:36 02/11/25 20:57 Ofirmev IV 02/13/25 20:35 Infused Q8H PRN Infusion pain/fever Promethazine HCl 6.25 mg in 50.25 mls @ 201 mls/hr 02/10/25 20:36 02/10/25 22:41 Phenergan IV 03/12/25 20:35 Infused Q6H PRN Infusion Nausea And Vomiting Potassium Chloride/Dextrose/Sod Cl 20 meq in 1,000 mls @ 80 mls/hr 02/11/25 19:30 02/12/25 09:59 D5nss + 20meq Kcl IV 02/14/25 19:29 80 mls/hr .[id number] ED Administration Ketorolac Tromethamine 15 mg 02/10/25 20:36 02/11/25 17:05 Ketorolac Tromethamine 15 Mg/Ml Vial IV 02/15/25 20:35 15 mg Q6H PRN Administration Pain Loratadine 10 mg 02/10/25 21:00 02/11/25 20:58 Loratadine 10 Mg Tab PO 03/12/25 20:59 Not Given QPM ED Montelukast Sodium 10 mg 02/11/25 09:00 02/12/25 08:32 Montelukast Sodium 10 Mg Tablet PO 03/13/25 08:59 10 mg QAM ED Administration Ondansetron HCl 4 mg 02/10/25 22:26 02/11/25 17:06 Ondansetron Inj 2 Mg/Ml 2 Ml Vial IV 03/12/25 22:25 4 mg Q4H PRN Administration Nausea Umeclidinium/Vilanterol 1 puffs 02/11/25 09:00 02/12/25 08:32 Umeclidinium/Vilanterol 62.5/25mcg 7 Puffs/Inhaler INH 03/13/25 08:59 Not Given DAILY ED
--- NOTE | 2025-02-12 18:23 | Gastrointestinal Consultation ---
Date of Consultation February 12, 2025 Assessment & Plan (1) Small bowel obstruction: Patient at risks of adhesive bowel disease based on history of a bowel obstruction in 2019 and previous hysterectomy. However atypical is some symptoms leading up to this bowel obstruction including some abdominal discom fort and heartburn. CT also quite suggestive of Crohn's with long segment thickening of the small bowel. Patient was to have an outpatient colonoscopy though Sandhya presented. She was not completely asymptomatic at discharge. Now feeling improved. Not clear she would tolerate a oral preparation however. I think it be reasonable to give her a dose of 2 of steroids to improve bowel patency to allow preparation if indeed this is Crohn's. Recheck x-ray tomorrow after steroids. Tension good discharge on just budesonide pending outpatient colonoscopy. Reviewed in detail with patient she is agreeable. Plan Solu-Medrol IV x 1-2 doses. Follow-up x-ray. If bowel improved could consider trial of clamping or removing NG. Colonoscopy when patient preferable. History of Present Illness Reason for Consultation: Small bowel obstruction, abnormal CT Attending Physician: Teagan Castellon MD History of Present Illness Patient recently mid for small bowel obstruction. CT suggested thickening of the terminal ileum. Outpatient colonoscopy planned though the patient Sandhya presented with bowel obstruction now requiring NG decompression. There is a history of a small bowel obstruction back in 2019 that resolved without surgical intervention or other therapy. She states she felt mostly well since that time. Maybe her 2 to 3 weeks leading up to the present episode she had noticed some abdominal discomfort in both upper quadrants some increased heartburn indigestion which may have signified partial bowel obstruction at that time. CT this point does not show the wall thickening is obviously though did show high- grade bowel obstruction. She has felt well since an NG has been placed. States she is much improved. She is passing some gas but no bowel movements. NG draining bilious material. Patient has had previous hysterectomy which certainly would increase the risk of adhesive bowel disease. CT findings symptoms leading up to her bowel obstruction slightly atypical. Crohn's disease is on the differential. She does have elevated C-reactive protein and a sedimentation rate. Allergies Allergy/AdvReac Type Severity Reaction Status Date / Time cefuroxime [From Ceftin] Allergy Intermediate ITCHY RASH Verified 02/05/25 21:22 cephalexin [From Keflex] Allergy Intermediate ITCHY RASH Verified 02/05/25 21:22 erythromycin base Allergy Intermediate ITCHY RASH Verified 02/05/25 21:22 Penicillins Allergy Intermediate ITCHY RASH Verified 02/05/25 21:22 Tetracyclines Allergy Intermediate ITCHY RASH Verified 02/05/25 21:22 Home Medications Medication Instructions Recorded Confirmed Type diphenhydramine HCl 25 mg 25 mg PO HS Sleep 06/13/22 02/10/25 History disintegrating tablet (Unisom SleepMelts) albuterol sulfate 90 mcg/actuation 2 puff inhalation Q4 PRN Wheezing 02/05/25 02/10/25 History aerosol inhaler diclofenac sodium 75 mg 75 mg PO AMHS 02/05/25 02/10/25 History tablet,delayed release fluticasone fur. 200 mcg-umeclid 1 ea inhalation QAM 02/05/25 02/10/25 History 62.5 mcg-vilant 25 mcg inhalat.powder (Trelegy Ellipta) fluticasone propionate 50 2 spray intranasal AMHS 02/05/25 02/10/25 History mcg/actuation nasal spray,suspension gabapentin 300 mg capsule 300 mg PO BID PRN arm nerve pain 02/05/25 02/10/25 History loratadine 10 mg tablet 10 mg PO QPM 02/05/25 02/10/25 History montelukast 10 mg tablet 10 mg PO QAM 02/05/25 02/10/25 History phentermine 30 mg capsule 30 mg PO QAM 02/05/25 02/10/25 History docusate sodium 100 mg capsule 100 mg PO BID #1 cap 02/08/25 02/10/25 Rx (Colace) Patient History Medical History Bowel obstruction Surgical History H/O: hysterectomy Social History Smoking Status: Current some day smoker Tobacco Type: Cigarettes Second Hand Exposure: Yes; Do You Dip or Chew Tobacco: No; Hx Alcohol Use: No Hx Substance Use: No Preferred Language: Nepali Communication Ability: Effective 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 No blood or mucus. Review of systems as per HPI otherwise no changes. Physical Exam Physical Exam: Patient examined at bedside she does not appear acutely toxic or ill. She has an NG in place. Alert and orientated. Chest and heart exams per hospitalist. Abdomen examination today she is nondistended. I cannot elicit any guarding rebound or rigidity. Decreased bowel sounds. No fullness or tenderness in the right lower quadrant specifically. No mass effect. 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 Results & Data Vital Signs (Past 12 Hours) Vital Signs Temp Pulse Resp BP BP Pulse Ox O2 Del Method 02/12/25 14:23 36.8 C 93 H 20 130/79 95 Room Air 02/12/25 10:57 36.7 C 90 19 128/75 96 Room Air 02/12/25 07:12 36.7 C 87 19 123/79 96 Room Air PG Care Time/CCT Total # of Minutes Spent Total Time Spent with Patient: Total time spent is greater than 50% in coordination of care (as documented) at patient's floor/unit and/or counseling patient: Coding Level of Care Code 85321 IN/OBS CONSULT LVL 2,35M Diagnoses Small bowel obstruction K56.609
--- NOTE | 2025-02-13 09:18 | Gastroenterology Progress Note ---
Date of Service February 13, 2025 Assessment & Plan (1) Small bowel obstruction: Plan: [id number] with h/o tobacco use h/o hysterectomy and h/o recurrent SBO is seen today for SBO and abnormal imaging on CT 02/05/25. (1) SBO - Passing flatus but no BMs. No vomiting today. KUB pending on AM rounds. - Continue with supportive care as directed by General Surgery/Primary team. - Continue with IV Solumedrol as ordered by Gastroenterology. - Reviewed KUB with mild improvement of SBO. - Clamp NG tube today. If she becomes nauseous would unclamp. - F/U with KUB in AM. Admission and Anticipated Discharge Date Admission Date: February 10, 2025 Supervising Physician Co-Signing Physician Notes X-ray suggest improving small bowel obstruction. Nurses report only 500 out of the gastric drain in the last 24 hours. Patient feels less distended she feels that she is going to have a bowel movement. She has passed some rectal gas. Clamp NG. Continue IV steroids for the next 24 hours. If no recurrent distention and tolerates p.o. can try gentle colon preparation with a colonoscopy for Tuesday for suspected ileal Crohn's disease. Small bowel obstruction for adhesions in this patient previous hysterectomy remains on the differential Subjective [id number] with h/o tobacco use and recurrent bowel obstructions (reportedly 4 in the past) is seen today on GI rounds for SBO and abnormal CT scan on 02/05/25 during admission last week for SBO suggestive of possible inflammatory bowel disease. Patient reports that she was doing well and had a good bowel movement during her last admission. Then she went home and was unable to go with colace alone. She did have a small incomplete BM over the weekend. Then on Tuesday she started to feel abdominal distention with vomting. She returned to ER that night with SBO on imaging. NG tube was placed which alleviated discomfort and vomiting. No bowel movement thus far. She was seen by attending GI Dr. Smith last night who recommended a few courses of Solumedrol to see if this would help patient. Plan to further investigate with Colonoscopy once obstruction has resoved, likely to occur as outpatient. Today the patient has no concerns. Her priority is to get NG tube removed and discharged back to home. She denies any fevers, chills, SOB, cough, CP, abdominal pain, N/V/D, melena or hematochezia. Social history + Tobacco use. No drug or alcohol use. Takes NSAIDs for arthritis (ibuprofen) QOD typically. Surgical History - + Hysterectomy. No other GI surgeries. Family History - Mother had issues with SBO 2/2 adhesions. No IBD or Celiac disease. Pertinent Diagnostics CT AP 02/05/25 Findings of a long segment of terminal ileum demonstrating wall thickening and mucosal hyperenhancement, mild fluid filling, and otherwise is decompressed. Just proximal to this, is a moderate length segment of significantly dilated bowel containing feces, likely due to partial mechanical obstruction. The findings raise concern for inflammatory bowel (Crohn) disease. Possible right-sided sacroiliitis. KUB 02/12/25 - Grossly stable SBO CBC 02/11/25 - Hgb 13.1 Hct 39.1 Plt 335 WBC 6.24 BMP 02/12/25 -Glucose 89, BUN7, Cr 0.5, Cl 104, CO2 25, Na 138, K 3.5 Review of Systems Review of Systems: See HPI Physical Exam Physical Exam: Constitutional: NAD. Alert. Answering questions appropriately. ENT: NG tube intact. Respiratory: Breathing is even, non-labored. Lungs merino are clear to auscultation anteriorly. Cardiovascular: Regular Rate and Rhythm, no murmurs, rubs or gallops appreciated. Gastrointestinal (Abdomen): Normoactive bowel sounds x4, soft, non-distended, non-tender. Musculoskeletal: Lying in bed comfortably. No peripheral edema. Results & Data Results & Data Vital Signs (Past 12 Hours) Vital Signs Temp Pulse Resp BP Pulse Ox O2 Del Method 02/13/25 07:05 98.4 F 94 H 16 119/77 93 Room Air 02/12/25 23:51 98.2 F 74 14 120/71 96 Room Air PG Care Time/CCT Total # of Minutes Spent Total Time Spent with Patient: Total time spent is greater than 50% in coordination of care (as documented) at patient's floor/unit and/or counseling patient: Coding Level of Care Code 23709 SUB INP/OBS CARE 2/35MIN Diagnoses Small bowel obstruction K56.609
--- NOTE | 2025-02-13 09:39 | Surgery Progress Note ---
Date of Service February 13, 2025 Assessment & Plan (1) Small bowel obstruction: Plan: Patient here w/ SBO with question of possible crohns KUB yesterday revealed ongoing small bowel distention, therefore NGT remained in place pt reports feeling well this AM, no pain/n/v. she is passing gas GI on board as of last evening and started her on a dose or two of steroids to see if this helps her situation Will check KUB, but can likely perform clamp trial and see how she fairs Admission and Anticipated Discharge Date Admission Date: February 10, 2025 Supervising Physician Co-Signing Physician Notes Patient seen and examined, labs image reviewed, agree with above. Admitted with recurrent small bowel obstruction, GI consulted and suspicion for Crohn's, she has been started on steroids. She is passing gas and the NG tube clamped for about an hour and she is feeling much better. On exam she is afebrile with st able vitals, her abdomen is soft, less distended, nontender. KUB personally reviewed and interpreted and agree with the assessment of improved but still distended small bowel loops, air in the colon. Resolving SBO, may be related to IBD versus adhesions. Continue NG tube, will remove tomorrow pending clinical course and x-ray. Subjective Patient feels well. NGT discomfort. Otherwise denies abdominal pain, nausea/vomiting. She is passing gas. States she wants to go home Physical Exam Physical Exam: awake/alert, no distress Gastrointestinal (Abdomen): Inspection/Auscultation: abdomen not distended Percussion/Palpation: abdomen soft; abdomen nontender NGT in place. 500cc documented last 12 hrs, 1.3L last 24 hrs Results & Data Vital Signs (Past 12 Hours) Vital Signs Temp Pulse Resp BP Pulse Ox O2 Del Method 02/13/25 07:05 98.4 F 94 H 16 119/77 93 Room Air 02/12/25 23:51 98.2 F 74 14 120/71 96 Room Air PG Care Time/CCT Total # of Minutes Spent Total Time Spent with Patient: Total time spent is greater than 50% in coordination of care (as documented) at patient's floor/unit and/or counseling patient: Coding Level of Care Code 47897 SUB INP/OBS CARE 07/28MIN Diagnoses Small bowel obstruction K56.609
--- NOTE | 2025-02-13 11:40 | XRay Report ---
XR abdomen 2V w PA chest CLINICAL HISTORY: Small bowel obstruction COMPARISON STUDY: 02/12/2025 FINDINGS: CHEST: Nasogastric tube tip is in the proximal stomach just beyond the GE junction, partially withdra wn. Heart size and pulmonary vasculature are normal. No consolidation, pleural effusion, or pneumotho rax. ABDOMEN: There are a few dilated small bowel loops measuring up to 5 cm diameter, improved. No coloni c distention seen. No gross free air. IMPRESSION: 1. No acute findings in the chest. 2. Persistent but improved small bowel distention. 3. Nasogastric tube has been partially withdrawn, tip is just beyond the GE junction. ACT 112: Negative or not required by law. Electronically signed by: Silvestre Sevilla M.D. 02/13/2025 11:38 AM
--- NOTE | 2025-02-13 15:21 | Hospitalist Progress Note ---
Date of Service February 13, 2025 Assessment & Plan (1) Small bowel obstruction: Plan: Ms. Saucedo is a medical history significant for COPD, hyperlipidemia, ongoing tobacco abuse admitted for SBO Patient recently discharged from the same. GI evaluated patient and recommended outpatient C-scope; however, patient returns within 48 hours with recurrent SBO and LLQ transition point #Small bowel obstruction, 2/2 suspected Crohns v adhesions --Status post NG tube placement, possible removal today v tomorrow continue flatus today -- General Surgery consulted, recommend conservative management for now Repeat imaging tomorrow Supportive care, IV fluids Consult GI: started methylprednisone x 2, possible c-scope on Tuesday for suspected ileal Crohns, adhesions still possible etiology #Possible IBD on imaging from last confinement hx COPD, lung status at baseline ongoing tobacco abuse DVT prophylaxis per Lovenox subcu Full code Admission and Anticipated Discharge Date Admission Date: February 10, 2025 Subjective reports less abdominal pain and return of appetite this am endorses continued flatus, but no bm as of yet gi evaluated last evening started steroids to aid in inflammation Physical Exam Constitutional: WD/WN, vitals as above ENMT: ngt in place, dark output noted Respiratory: normal respiratory effort, lungs clear to auscultation Cardiovascular: RRR, no murmur, no edema Gastrointestinal (Abdomen): normal bowel sounds, soft, nontender, no hepatosplenomegaly Results & Data Results & Data Vital Signs (Past 12 Hours) Vital Signs Temp Pulse Resp BP Pulse Ox O2 Del Method 02/13/25 15:17 36.5 C 77 17 116/77 97 Room Air 02/13/25 07:05 36.9 C 94 H 16 119/77 93 Room Air Laboratory Results Home Medications Medication Instructions Recorded Confirmed Last Taken diphenhydramine HCl 25 mg 25 mg PO HS Sleep 06/13/22 02/10/25 02/04/25 disintegrating tablet (Unisom SleepMelts) albuterol sulfate 90 mcg/actuation 2 puff inhalation Q4 PRN Wheezing 02/05/25 02/10/25 Unknown aerosol inhaler diclofenac sodium 75 mg 75 mg PO AMHS 02/05/25 02/10/25 02/05/25 tablet,delayed release fluticasone fur. 200 mcg-umeclid 1 ea inhalation QAM 02/05/25 02/10/25 02/05/25 62.5 mcg-vilant 25 mcg inhalat.powder (Trelegy Ellipta) fluticasone propionate 50 2 spray intranasal AMHS 02/05/25 02/10/25 02/05/25 mcg/actuation nasal am dose spray,suspension gabapentin 300 mg capsule 300 mg PO BID PRN arm nerve pain 02/05/25 02/10/25 Unknown loratadine 10 mg tablet 10 mg PO QPM 02/05/25 02/10/25 02/05/25 montelukast 10 mg tablet 10 mg PO QAM 02/05/25 02/10/25 02/05/25 phentermine 30 mg capsule 30 mg PO QAM 02/05/25 02/10/25 02/05/25 docusate sodium 100 mg capsule 100 mg PO BID #1 cap 02/08/25 02/10/25 Unknown (Colace) Active Medications Generic Name Dose Route Start Last Admin Trade Name Freq PRN Reason Stop Dose Admin Diphenhydramine HCl 25 mg 02/10/25 21:00 02/12/25 21:49 Diphenhydramine Capsule 25 Mg Cap PO 03/12/25 20:59 25 mg HS ED Administration Enoxaparin Sodium 40 mg 02/11/25 09:00 02/13/25 07:39 Enoxaparin Inj 40 Mg/0.4 Ml Syr SQ 03/13/25 08:59 40 mg QAM ED Administration Fluticasone Furoate 1 puffs 02/11/25 09:00 02/13/25 07:41 Fluticasone Furoate 200mcg 14 Puffs/Inhaler INH 03/13/25 08:59 Not Given DAILY ED Fluticasone Propionate 2 sprays 02/10/25 21:00 02/13/25 07:41 Fluticasone Propionate Na Spr 16 Gm Btl NA 03/12/25 20:59 Not Given AMHS ED Acetaminophen 1,000 mg in 100 mls @ 400 mls/hr 02/10/25 20:36 02/13/25 15:01 Ofirmev IV 02/13/25 20:35 Infused Q8H PRN Infusion pain/fever Promethazine HCl 6.25 mg in 50.25 mls @ 201 mls/hr 02/10/25 20:36 02/10/25 22:41 Phenergan IV 03/12/25 20:35 Infused Q6H PRN Infusion Nausea And Vomiting Potassium Chloride/Dextrose/Sod Cl 20 meq in 1,000 mls @ 80 mls/hr 02/11/25 19:30 02/13/25 10:06 D5nss + 20meq Kcl IV 02/14/25 19:29 80 mls/hr .[id number] ED Administration Methylprednisolone 20 mg/ 0.32 mls @ 1.5 mls/min 02/13/25 14:00 02/13/25 14:50 Syringe IV 03/15/25 13:59 1.5 mls/min Q8H ED Administration Ketorolac Tromethamine 15 mg 02/10/25 20:36 02/11/25 17:05 Ketorolac Tromethamine 15 Mg/Ml Vial IV 02/15/25 20:35 15 mg Q6H PRN Administration Pain Loratadine 10 mg 02/10/25 21:00 02/12/25 21:50 Loratadine 10 Mg Tab PO 03/12/25 20:59 Not Given QPM ED Lorazepam 0.5 mg 02/10/25 20:36 02/12/25 17:33 Lorazepam 2 Mg/1 Ml Vial IV 03/12/25 20:35 0.5 mg Q4H PRN Administration Anxiety/Agitation Montelukast Sodium 10 mg 02/11/25 09:00 02/13/25 07:39 Montelukast Sodium 10 Mg Tablet PO 03/13/25 08:59 10 mg QAM ED Administration Ondansetron HCl 4 mg 02/10/25 22:26 02/11/25 17:06 Ondansetron Inj 2 Mg/Ml 2 Ml Vial IV 03/12/25 22:25 4 mg Q4H PRN Administration Nausea Umeclidinium/Vilanterol 1 puffs 02/11/25 09:00 02/13/25 07:41 Umeclidinium/Vilanterol 62.5/25mcg 7 Puffs/Inhaler INH 03/13/25 08:59 Not Given DAILY ED Medications Administered Home Medications Medication Instructions Recorded Confirmed Last Taken diphenhydramine HCl 25 mg 25 mg PO HS Sleep 06/13/22 02/10/25 02/04/25 disintegrating tablet (Unisom SleepMelts) albuterol sulfate 90 mcg/actuation 2 puff inhalation Q4 PRN Wheezing 02/05/25 02/10/25 Unknown aerosol inhaler diclofenac sodium 75 mg 75 mg PO AMHS 02/05/25 02/10/25 02/05/25 tablet,delayed release fluticasone fur. 200 mcg-umeclid 1 ea inhalation QAM 02/05/25 02/10/25 02/05/25 62.5 mcg-vilant 25 mcg inhalat.powder (Trelegy Ellipta) fluticasone propionate 50 2 spray intranasal AMHS 02/05/25 02/10/25 02/05/25 mcg/actuation nasal am dose spray,suspension gabapentin 300 mg capsule 300 mg PO BID PRN arm nerve pain 02/05/25 02/10/25 Unknown loratadine 10 mg tablet 10 mg PO QPM 02/05/25 02/10/25 02/05/25 montelukast 10 mg tablet 10 mg PO QAM 02/05/25 02/10/25 02/05/25 phentermine 30 mg capsule 30 mg PO QAM 02/05/25 02/10/25 02/05/25 docusate sodium 100 mg capsule 100 mg PO BID #1 cap 02/08/25 02/10/25 Unknown (Colace) Active Medications Generic Name Dose Route Start Last Admin Trade Name Freq PRN Reason Stop Dose Admin Diphenhydramine HCl 25 mg 02/10/25 21:00 02/12/25 21:49 Diphenhydramine Capsule 25 Mg Cap PO 03/12/25 20:59 25 mg HS ED Administration Enoxaparin Sodium 40 mg 02/11/25 09:00 02/13/25 07:39 Enoxaparin Inj 40 Mg/0.4 Ml Syr SQ 03/13/25 08:59 40 mg QAM ED Administration Fluticasone Furoate 1 puffs 02/11/25 09:00 02/13/25 07:41 Fluticasone Furoate 200mcg 14 Puffs/Inhaler INH 03/13/25 08:59 Not Given DAILY ED Fluticasone Propionate 2 sprays 02/10/25 21:00 02/13/25 07:41 Fluticasone Propionate Na Spr 16 Gm Btl NA 03/12/25 20:59 Not Given AMHS ED Acetaminophen 1,000 mg in 100 mls @ 400 mls/hr 02/10/25 20:36 02/13/25 15:01 Ofirmev IV 02/13/25 20:35 Infused Q8H PRN Infusion pain/fever Promethazine HCl 6.25 mg in 50.25 mls @ 201 mls/hr 02/10/25 20:36 02/10/25 22:41 Phenergan IV 03/12/25 20:35 Infused Q6H PRN Infusion Nausea And Vomiting Potassium Chloride/Dextrose/Sod Cl 20 meq in 1,000 mls @ 80 mls/hr 02/11/25 19:30 02/13/25 10:06 D5nss + 20meq Kcl IV 02/14/25 19:29 80 mls/hr .[id number] ED Administration Methylprednisolone 20 mg/ 0.32 mls @ 1.5 mls/min 02/13/25 14:00 02/13/25 14:50 Syringe IV 03/15/25 13:59 1.5 mls/min Q8H ED Administration Ketorolac Tromethamine 15 mg 02/10/25 20:36 02/11/25 17:05 Ketorolac Tromethamine 15 Mg/Ml Vial IV 02/15/25 20:35 15 mg Q6H PRN Administration Pain Loratadine 10 mg 02/10/25 21:00 02/12/25 21:50 Loratadine 10 Mg Tab PO 03/12/25 20:59 Not Given QPM ED Lorazepam 0.5 mg 02/10/25 20:36 02/12/25 17:33 Lorazepam 2 Mg/1 Ml Vial IV 03/12/25 20:35 0.5 mg Q4H PRN Administration Anxiety/Agitation Montelukast Sodium 10 mg 02/11/25 09:00 02/13/25 07:39 Montelukast Sodium 10 Mg Tablet PO 03/13/25 08:59 10 mg QAM ED Administration Ondansetron HCl 4 mg 02/10/25 22:26 02/11/25 17:06 Ondansetron Inj 2 Mg/Ml 2 Ml Vial IV 03/12/25 22:25 4 mg Q4H PRN Administration Nausea Umeclidinium/Vilanterol 1 puffs 02/11/25 09:00 02/13/25 07:41 Umeclidinium/Vilanterol 62.5/25mcg 7 Puffs/Inhaler INH 03/13/25 08:59 Not Given DAILY ED
--- NOTE | 2025-02-14 08:58 | Surgery Progress Note ---
Date of Service February 14, 2025 Assessment & Plan (1) Small bowel obstruction: Plan: Patient here w/ SBO with question of possible crohns -KUB this AM still with persistent SBO without improvement however clinically patient states she is feeling well and the NGT has remained clamped since yesterday. -Denies N/V or abdominal pain. Passing gas however no BM yet -GI on board as of last evening and started her on steroids to see if this helps her situation, appreciate their input and recommendations Admission and Anticipated Discharge Date Admission Date: February 10, 2025 Subjective Patient seen and evaluated this morning, states she is feeling significantly better. NGT has been clamped since yesterday, she denies abdominal pain, N/V. Passing gas, no BM Patient expressing she would like to trail food and go home today VSS and afebrile Physical Exam Constitutional: WD/WN, vitals as above Respiratory: normal respiratory effort, lungs clear to auscultation Cardiovascular: RRR, no murmur, no edema Gastrointestinal (Abdomen): Abdomen soft, nondistended, nontender to palpation NGT in place and clamped Skin: no rashes, warm and dry Results & Data Vital Signs (Past 12 Hours) Vital Signs Temp Pulse Resp BP Pulse Ox O2 Del Method 02/14/25 07:48 36.6 C 78 18 114/80 95 Room Air 02/13/25 23:29 36.5 C 89 18 130/79 93 Room Air PG Care Time/CCT Total # of Minutes Spent Total Time Spent with Patient: Total time spent is greater than 50% in coordination of care (as documented) at patient's floor/unit and/or counseling patient: Coding Diagnoses Small bowel obstruction K56.609
--- NOTE | 2025-02-14 09:28 | XRay Report ---
XR abdomen min 2V CLINICAL HISTORY: Small bowel obstruction. Follow-up study. COMPARISON STUDY: 02/13/2025 FINDINGS: There is a nasogastric tube within the stomach. There are persistent dilated small bowel l oops measuring up to 56 mm in diameter. There is gas present within nondistended colon. Within the pe lvis there are multiple phleboliths. IMPRESSION: 1. Persistent small bowel obstructive pattern without radiographic evidence of improvement 2. Nasogastric tube within the stomach ACT 112: Negative or not required by law. Electronically signed by: Minh Grubbs M.D. 02/14/2025 9:27 AM
--- NOTE | 2025-02-14 10:14 | Hospitalist Progress Note ---
Date of Service February 14, 2025 Assessment & Plan (1) Small bowel obstruction: Plan: Ms. Saucedo is a medical history significant for COPD, hyperlipidemia, ongoing tobacco abuse admitted for SBO Patient recently discharged from the same. GI evaluated patient and recommended outpatient C-scope; however, patient returns within 48 hours with recurrent SBO and LLQ transition point. Patient s/p 48 hours of steroids with KUB still demonstrating present bowel obstruction #Small bowel obstruction, 2/2 suspected Crohns v adhesions --Status post NG tube placement, possible removal today v tomorrow continue flatus today -- General Surgery consulted, recommend conservative management for now Supportive care, IV fluids Consult GI: started methylprednisone x 2 days, possible c-scope on Tuesday for suspected ileal Crohns, adhesions still possible etiology Awaiting further recommendations from GI, will keep NGT for now #Possible IBD on imaging from last confinement hx COPD, lung status at baseline ongoing tobacco abuse DVT prophylaxis per Lovenox subcu Full code Admission and Anticipated Discharge Date Admission Date: February 10, 2025 Subjective NAEO patient reports no nausea, vomiting or other concerns outside of ongoing anxiety over current situation and lack of progress Physical Exam Constitutional: WD/WN, vitals as above Cardiovascular: RRR, no murmur, no edema Gastrointestinal (Abdomen): soft, nontender, BS+ ; NGT clamped Results & Data Results & Data Vital Signs (Past 12 Hours) Vital Signs Temp Pulse Resp BP Pulse Ox O2 Del Method 02/14/25 07:48 36.6 C 78 18 114/80 95 Room Air 02/13/25 23:29 36.5 C 89 18 130/79 93 Room Air Laboratory Results labs pending Diagnostic Findings Abdomen X-Ray 02/14/25 07:00 XR abdomen min 2V CLINICAL HISTORY: Small bowel obstruction. Follow-up study. COMPARISON STUDY: 02/13/2025 FINDINGS: There is a nasogastric tube within the stomach. There are persistent dilated small bowel loops measuring up to 56 mm in diameter. There is gas present within nondistended colon. Within the pelvis there are multiple phleboliths. IMPRESSION: 1. Persistent small bowel obstructive pattern without radiographic evidence of improvement 2. Nasogastric tube within the stomach ACT 112: Negative or not required by law. Electronically signed by: Minh Grubbs M.D. 02/14/2025 9:27 AM Medications Administered Home Medications Medication Instructions Recorded Confirmed Last Taken diphenhydramine HCl 25 mg 25 mg PO HS Sleep 06/13/22 02/10/25 02/04/25 disintegrating tablet (Unisom SleepMelts) albuterol sulfate 90 mcg/actuation 2 puff inhalation Q4 PRN Wheezing 02/05/25 02/10/25 Unknown aerosol inhaler diclofenac sodium 75 mg 75 mg PO AMHS 02/05/25 02/10/25 02/05/25 tablet,delayed release fluticasone fur. 200 mcg-umeclid 1 ea inhalation QAM 02/05/25 02/10/25 02/05/25 62.5 mcg-vilant 25 mcg inhalat.powder (Trelegy Ellipta) fluticasone propionate 50 2 spray intranasal AMHS 02/05/25 02/10/25 02/05/25 mcg/actuation nasal am dose spray,suspension gabapentin 300 mg capsule 300 mg PO BID PRN arm nerve pain 02/05/25 02/10/25 Unknown loratadine 10 mg tablet 10 mg PO QPM 02/05/25 02/10/25 02/05/25 montelukast 10 mg tablet 10 mg PO QAM 02/05/25 02/10/25 02/05/25 phentermine 30 mg capsule 30 mg PO QAM 02/05/25 02/10/25 02/05/25 docusate sodium 100 mg capsule 100 mg PO BID #1 cap 02/08/25 02/10/25 Unknown (Colace) Active Medications Generic Name Dose Route Start Last Admin Trade Name Freq PRN Reason Stop Dose Admin Diphenhydramine HCl 25 mg 02/10/25 21:00 02/13/25 21:35 Diphenhydramine Capsule 25 Mg Cap PO 03/12/25 20:59 25 mg HS ED Administration Enoxaparin Sodium 40 mg 02/11/25 09:00 02/14/25 08:08 Enoxaparin Inj 40 Mg/0.4 Ml Syr SQ 03/13/25 08:59 40 mg QAM ED Administration Fluticasone Furoate 1 puffs 02/11/25 09:00 02/14/25 08:08 Fluticasone Furoate 200mcg 14 Puffs/Inhaler INH 03/13/25 08:59 Not Given DAILY ED Fluticasone Propionate 2 sprays 02/10/25 21:00 02/14/25 08:08 Fluticasone Propionate Na Spr 16 Gm Btl NA 03/12/25 20:59 Not Given AMHS ED Promethazine HCl 6.25 mg in 50.25 mls @ 201 mls/hr 02/10/25 20:36 02/10/25 22:41 Phenergan IV 03/12/25 20:35 Infused Q6H PRN Infusion Nausea And Vomiting Potassium Chloride/Dextrose/Sod Cl 20 meq in 1,000 mls @ 80 mls/hr 02/11/25 19:30 02/13/25 22:57 D5nss + 20meq Kcl IV 02/14/25 19:29 80 mls/hr .[id number] ED Administration Methylprednisolone 20 mg/ 0.32 mls @ 1.5 mls/min 02/13/25 14:00 02/14/25 05:46 Syringe IV 03/15/25 13:59 1.5 mls/min Q8H ED Administration Ketorolac Tromethamine 15 mg 02/10/25 20:36 02/11/25 17:05 Ketorolac Tromethamine 15 Mg/Ml Vial IV 02/15/25 20:35 15 mg Q6H PRN Administration Pain Loratadine 10 mg 02/10/25 21:00 02/13/25 21:54 Loratadine 10 Mg Tab PO 03/12/25 20:59 10 mg QPM ED Administration Lorazepam 0.5 mg 02/10/25 20:36 02/13/25 18:28 Lorazepam 2 Mg/1 Ml Vial IV 03/12/25 20:35 0.5 mg Q4H PRN Administration Anxiety/Agitation Montelukast Sodium 10 mg 02/11/25 09:00 02/14/25 08:08 Montelukast Sodium 10 Mg Tablet PO 03/13/25 08:59 10 mg QAM ED Administration Ondansetron HCl 4 mg 02/10/25 22:26 02/11/25 17:06 Ondansetron Inj 2 Mg/Ml 2 Ml Vial IV 03/12/25 22:25 4 mg Q4H PRN Administration Nausea Umeclidinium/Vilanterol 1 puffs 02/11/25 09:00 02/14/25 08:08 Umeclidinium/Vilanterol 62.5/25mcg 7 Puffs/Inhaler INH 03/13/25 08:59 Not Given DAILY ED
[2025-02-14 11:22] LABS: Hematocrit (blood only) 40.2 % (37.0-47.0); Hemoglobin 13.9 g/dl (12.0-16.0); Mean Corpuscular Hemoglobin 30.9 pg (25.0-34.0); Mean Corpuscular Volume 89.3 fL (80.0-100.0); Platelet Count 414 K/uL (130-400); RDW Standard Deviation 43.3 fL (36.4-46.3); Red Blood Count 4.50 M/uL (4.20-5.40); White Blood Count 13.93 K/ul (4.8-10.8)
--- NOTE | 2025-02-14 11:24 | Surgery Progress Note ---
Date of Service February 14, 2025 Assessment & Plan (1) Small bowel obstruction: Plan: resolving sbo from adhesions vs IBD. stable xray but clinically improved. Offered to remove ng tube vs sbft, elects for tube removal and clears. d/c ng tube start clears, advised to take it slow may have fulls for dinner if tolerates lunch continue steroids per GI (2) Inflammatory bowel disease: Admission and Anticipated Discharge Date Admission Date: February 10, 2025 Subjective admitted with partial recurrent sbo from scar vs. possible IBD. Passing flatus, no pain, NG clamped almost 24 hours with no nausea, pain, or bloating. She is hungry. Physical Exam Constitutional: WD/WN, vitals as above Gastrointestinal (Abdomen): normal bowel sounds, soft, nontender, no hepatosplenomegaly Inspection/Auscultation: abdomen not distended Results & Data Vital Signs (Past 12 Hours) Vital Signs Temp Pulse Resp BP Pulse Ox O2 Del Method 02/14/25 07:48 36.6 C 78 18 114/80 95 Room Air 02/13/25 23:29 36.5 C 89 18 130/79 93 Room Air Diagnostic Findings KUB personally reviewed, stable dilation from yesterday but air in colon. Chest/Abdomen X-ray 02/13/25 09:59 XR abdomen 2V w PA chest CLINICAL HISTORY: Small bowel obstruction COMPARISON STUDY: 02/12/2025 FINDINGS: CHEST: Nasogastric tube tip is in the proximal stomach just beyond the GE junction, partially withdrawn. Heart size and pulmonary vasculature are normal. No consolidation, pleural effusion, or pneumothorax. ABDOMEN: There are a few dilated small bowel loops measuring up to 5 cm diameter, improved. No colonic distention seen. No gross free air. IMPRESSION: 1. No acute findings in the chest. 2. Persistent but improved small bowel distention. 3. Nasogastric tube has been partially withdrawn, tip is just beyond the GE junction. ACT 112: Negative or not required by law. Electronically signed by: Silvestre Sevilla M.D. 02/13/2025 11:38 AM Abdomen X-Ray 02/14/25 07:00 XR abdomen min 2V CLINICAL HISTORY: Small bowel obstruction. Follow-up study. COMPARISON STUDY: 02/13/2025 FINDINGS: There is a nasogastric tube within the stomach. There are persistent dilated small bowel loops measuring up to 56 mm in diameter. There is gas present within nondistended colon. Within the pelvis there are multiple phleboliths. IMPRESSION: 1. Persistent small bowel obstructive pattern without radiographic evidence of improvement 2. Nasogastric tube within the stomach ACT 112: Negative or not required by law. Electronically signed by: Minh Grubbs M.D. 02/14/2025 9:27 AM PG Care Time/CCT Total # of Minutes Spent Total Time Spent with Patient: Total time spent is greater than 50% in coordination of care (as documented) at patient's floor/unit and/or counseling patient: Coding Level of Care Code 67079 SUB INP/OBS CARE 235MIN Diagnoses Small bowel obstruction K56.609 Inflammatory bowel disease K52.9
[2025-02-14 11:35] LABS: Anion Gap 7.0 (3-11); Blood Urea Nitrogen 10.0 mg/dl (6-23); Calcium 9.0 mg/dl (8.6-10.3); Carbon Dioxide 24.0 mmol/L (21-32); Chloride 107.0 mmol/L (98-107); Creatinine Clr Calc Pharmacy 121.1 ml/min; Glucose 120.0 mg/dl (70-99(Fasting)); Magnesium 2.1 mg/dl (1.7-2.4); Potassium 3.9 mmol/L (3.5-5.1); Sodium 138.0 mmol/L (136-145)
--- NOTE | 2025-02-14 11:52 | Gastroenterology Progress Note ---
Date of Service February 14, 2025 Assessment & Plan (1) Small bowel obstruction: Plan: [id number] with h/o tobacco use h/o hysterectomy and h/o recurrent SBO is seen today for SBO and abnormal imaging on CT 02/05/25. (1) SBO - Passing flatus but no BMs. NG tube pulled. - Case reviewed with Dr. Smith. - We'll offer GoLytely prep for possible colonoscopy. Given her recent issues and SBO would avoid traditional prep. Recommend Golytely 8oz every hour (as opposed to tradition 15m teaching). Patient informed to try to get as much of prep as she can tolerate. Clears upto midnight. NPO after midnight with exception of prep and sips of water with medications. Nothing to eat or drink/Stop prep at 6am for possible colonoscopy tomorrow. - Patient educated that if she becomes symptomatic and distended then she may need to have NG tube replaced. Patient voices understanding and agrees to proceed. - Continue with supportive care as directed by General Surgery/Primary team. - Continue with IV Solumedrol as ordered by Gastroenterology. - Further recommendations to come with Supervising GI provider on medical rounds. Please see co-signature comments. Admission and Anticipated Discharge Date Admission Date: February 10, 2025 Supervising Physician Co-Signing Physician Notes NG out. States she feels well. Had a least 3 glasses of GoLytely without significant increased distention or nausea vomiting. Differential remains small bowel obstruction from Crohn's disease versus adhesive bowel disease. Continue IV steroids. Colonoscopy with terminal ileum intubation if we can adequately prep her. Patient has been advised if there is abdominal stanchion or symptoms of her SBO including nausea and vomiting to stop further GoLytely ingestion. Potential for replaced NG discussed. Possible colonoscopy tomorrow. Subjective [id number] with h/o tobacco use and recurrent bowel obstructions (reportedly 4 in the past) is seen today on GI rounds for SBO and abnormal CT scan on 02/05/25 during admission last week for SBO suggestive of possible inflammatory bowel disease. Patient reports that she was doing well and had a good bowel movement during her last admission. Then she went home and was unable to go with colace alone. She did have a small incomplete BM over the weekend. Then on Tuesday she started to feel abdominal distention with vomiting. She returned to ER that night with SBO on imaging. NG tube was placed which alleviated discomfort and vomiting. No bowel movement thus far. She was seen by attending GI Dr. Smith last night who recommended a few courses of Solumedrol to see if this would help patient. Plan to further investigate with Colonoscopy once obstruction has resoved, likely to occur as outpatient. Over the last two days patient has started to feel better. She no longer has abdominal pain. She's passing gas. No stools. We capped her NG tube yesterday which she tolerated well. F/U KUB today reveals stable SBO. She was seen by General surgery today where it was offered to pull NG tube and trial clears vs SBFT. She opted to pull NG tube. She denies any fevers, chills, SOB, cough, CP, abdominal pain, N/V/D, melena or hematochezia. Social history + Tobacco use. No drug or alcohol use. Takes NSAIDs for arthritis (ibuprofen) QOD typically. Surgical History - + Hysterectomy. No other GI surgeries. Family History - Mother had issues with SBO 2/2 adhesions. No IBD or Celiac disease. Pertinent Diagnostics CT AP 02/05/25 Findings of a long segment of terminal ileum demonstrating wall thickening and mucosal hyperenhancement, mild fluid filling, and otherwise is decompressed. Just proximal to this, is a moderate length segment of significantly dilated bowel containing feces, likely due to partial mechanical obstruction. The findings raise concern for inflammatory bowel (Crohn) disease. Possible right-sided sacroiliitis. KUB 02/12/25 - Grossly stable SBO CBC 02/11/25 - Hgb 13.1 Hct 39.1 Plt 335 WBC 6.24 BMP 02/12/25 -Glucose 89, BUN7, Cr 0.5, Cl 104, CO2 25, Na 138, K 3.5 Review of Systems Review of Systems: See HPI Physical Exam Physical Exam: Constitutional: NAD. Alert. Answering questions appropriately. ENT: NG tube intact. Respiratory: Breathing is even, non-labored. Lungs merino are clear to auscultation anteriorly. Cardiovascular: Regular Rate and Rhythm, no murmurs, rubs or gallops appreciated. Gastrointestinal (Abdomen): Normoactive bowel sounds x4, soft, non-distended, non-tender. Musculoskeletal: Lying in bed comfortably. No peripheral edema. Results & Data Results & Data Vital Signs (Past 12 Hours) Vital Signs Temp Pulse Resp BP Pulse Ox O2 Del Method 02/14/25 07:48 97.9 F 78 18 114/80 95 Room Air PG Care Time/CCT Total # of Minutes Spent Total Time Spent with Patient: Total time spent is greater than 50% in coordination of care (as documented) at patient's floor/unit and/or counseling patient: Coding Level of Care Code 49422 SUB INP/OBS CARE 3/50MIN Diagnoses Small bowel obstruction K56.609
[2025-02-14] MEDS: LAVAGE SOLUTION 4000ML PO SCH (13:08)
[2025-02-15] MEDS: D5W AND NSS 1,000 ML IV ONE (00:26)
[2025-02-15 08:09] VITALS: TEMP 97.3
--- NOTE | 2025-02-15 08:23 | Anesthesiology Consultation ---
Date of Service February 15, 2025 History Surgery Operation Date: 02/15/25 16:30 Proposed Procedures p Colonoscopy Dr. Luis Smith MD Height/Weight Height: 5 ft 5 in Weight: 72.6 kg Allergies Allergy/AdvReac Type Severity Reaction Status Date / Time cefuroxime [From Ceftin] Allergy Intermediate ITCHY RASH Verified 02/05/25 21:22 cephalexin [From Keflex] Allergy Intermediate ITCHY RASH Verified 02/05/25 21:22 erythromycin base Allergy Intermediate ITCHY RASH Verified 02/05/25 21:22 Penicillins Allergy Intermediate ITCHY RASH Verified 02/05/25 21:22 Tetracyclines Allergy Intermediate ITCHY RASH Verified 02/05/25 21:22 Medications Home Medications Medication Instructions Recorded Confirmed Last Taken diphenhydramine HCl 25 mg 25 mg PO HS Sleep 06/13/22 02/10/25 02/04/25 disintegrating tablet (Unisom SleepMelts) albuterol sulfate 90 mcg/actuation 2 puff inhalation Q4 PRN Wheezing 02/05/25 02/10/25 Unknown aerosol inhaler diclofenac sodium 75 mg 75 mg PO AMHS 02/05/25 02/10/25 02/05/25 tablet,delayed release fluticasone fur. 200 mcg-umeclid 1 ea inhalation QA 02/05/25 02/10/25 02/05/25 62.5 mcg-vilant 25 mcg inhalat.powder (Trelegy Ellipta) fluticasone propionate 50 2 spray intranasal AMHS 02/05/25 02/10/25 02/05/25 mcg/actuation nasal am dose spray,suspension gabapentin 300 mg capsule 300 mg PO BID PRN arm nerve pain 02/05/25 02/10/25 Unknown loratadine 10 mg tablet 10 mg PO QPM 02/05/25 02/10/25 02/05/25 montelukast 10 mg tablet 10 mg PO QAM 02/05/25 02/10/25 02/05/25 phentermine 30 mg capsule 30 mg PO QAM 02/05/25 02/10/25 02/05/25 docusate sodium 100 mg capsule 100 mg PO BID #1 cap 02/08/25 02/10/25 Unknown (Colace) Active Medications Generic Name Dose Route Start Last Admin Trade Name Freq PRN Reason Stop Dose Admin Diphenhydramine HCl 25 mg 02/10/25 21:00 02/14/25 21:45 Diphenhydramine Capsule 25 Mg Cap PO 03/12/25 20:59 25 mg HS ED Administration Enoxaparin Sodium 40 mg 02/11/25 09:00 02/14/25 08:08 Enoxaparin Inj 40 Mg/0.4 Ml Syr SQ 03/13/25 08:59 40 mg QAM ED Administration Fluticasone Furoate 1 puffs 02/11/25 09:00 02/14/25 08:08 Fluticasone Furoate 200mcg 14 Puffs/Inhaler INH 03/13/25 08:59 Not Given DAILY ED Fluticasone Propionate 2 sprays 02/10/25 21:00 02/14/25 21:45 Fluticasone Propionate Na Spr 16 Gm Btl NA 03/12/25 20:59 2 sprays AMHS ED Administration Promethazine HCl 6.25 mg in 50.25 mls @ 201 mls/hr 02/10/25 20:36 02/10/25 22:41 Phenergan IV 03/12/25 20:35 Infused Q6H PRN Infusion Nausea And Vomiting Methylprednisolone 20 mg/ 0.32 mls @ 1.5 mls/min 02/13/25 14:00 02/15/25 05:39 Syringe IV 03/15/25 13:59 1.5 mls/min Q8H ED Administration Dextrose/Sodium Chloride 1,000 mls @ 60 mls/hr 02/15/25 00:00 02/15/25 00:26 D5w And Nss IV 02/15/25 16:39 60 mls/hr .[id number] ONE Administration Ketorolac Tromethamine 15 mg 02/10/25 20:36 02/11/25 17:05 Ketorolac Tromethamine 15 Mg/Ml Vial IV 02/15/25 20:35 15 mg Q6H PRN Administration Pain Loratadine 10 mg 02/10/25 21:00 02/14/25 21:45 Loratadine 10 Mg Tab PO 03/12/25 20:59 10 mg QPM ED Administration Lorazepam 0.5 mg 02/10/25 20:36 02/14/25 19:44 Lorazepam 2 Mg/1 Ml Vial IV 03/12/25 20:35 0.5 mg Q4H PRN Administration Anxiety/Agitation Montelukast Sodium 10 mg 02/11/25 09:00 02/14/25 08:08 Montelukast Sodium 10 Mg Tablet PO 03/13/25 08:59 10 mg QAM ED Administration Ondansetron HCl 4 mg 02/10/25 22:26 02/11/25 17:06 Ondansetron Inj 2 Mg/Ml 2 Ml Vial IV 03/12/25 22:25 4 mg Q4H PRN Administration Nausea Umeclidinium/Vilanterol 1 puffs 02/11/25 09:00 02/14/25 08:08 Umeclidinium/Vilanterol 62.5/25mcg 7 Puffs/Inhaler INH 03/13/25 08:59 Not Given DAILY ED NPO Date Last Intake of Fluids: 02/14/25 Time Last Intake of Fluids: 22:00 Date Last Intake of Solids: 02/09/25 Time Last Intake of Solids: 11:59 Past Medical History Medical History Bowel obstruction Past Surgical History Surgical History H/O: hysterectomy Social History Smoking Status: Current some day smoker Do You Dip or Chew Tobacco: No Hx Alcohol Use: No Hx Substance Use: No substance use type: does not use Physical Exam Vital Signs Last Vital Signs Temp 36.3 C L 02/15/25 08:01 Pulse 60 02/15/25 08:01 Resp 16 02/15/25 08:01 BP 116/69 02/15/25 08:01 Pulse Ox 96 02/15/25 08:01 O2 Del Method Room Air 02/15/25 08:01 Testing Laboratory Results 02/14/25 10:35 02/14/25 10:35 Urine Color Yellow 02/10/25 18:20 Urine Appearance Clear (Clear) 02/10/25 18:20 Urine pH 6.0 (4.5-7.5) 02/10/25 18:20 Ur Specific [place] > 1.045 (1.000-1.030) H 02/10/25 18:20 Urine Protein Trace (Negative) H 02/10/25 18:20 Urine Glucose (UA) Negative (Negative) 02/10/25 18:20 Urine Ketones 2+ (Negative) H 02/10/25 18:20 Urine Nitrite Negative (Negative) 02/10/25 18:20 Ur Leukocyte Esterase Negative (Negative) 02/10/25 18:20 Urine WBC (Auto) 0-5 /hpf (0-5) 02/10/25 18:20 Urine RBC (Auto) 3-5 /hpf (0-2) H 02/10/25 18:20 U Hyaline Cast (Auto) 0-2 /lpf (0-2) 02/10/25 18:20 U Epithel Cells (Auto) 0-2 /hpf (0-2) 02/10/25 18:20 Urine Bacteria (Auto) None Seen (None Seen) 02/10/25 18:20
--- NOTE | 2025-02-15 08:24 | History & Physical Bridge Note ---
Date of Service February 15, 2025 History & Physical Bridge Note I have examined the patient, reviewed the History & Physical and in the interval since the performance of the History & Physical I have noted the following changes of clinical significance: no changes noted. Spoke with patient this morning. She got a little over half of prep completed, passing clear yellow stools. Last intake was around 10pm. Plan to proceed with colonoscopy as scheduled this morning. Supervising Physician Co-Signing Physician Notes Colonoscopy today with terminal ileal intubation. Patient's abdomen benign. Crohn's versus adhesive bowel disease
--- NOTE | 2025-02-15 08:51 | Communication Note ---
Date of Service: February 15, 2025 Colonoscopy to terminal ileum Prep suboptimal. TI was entered for 20 cm there is no evidence of Crohn's disease or terminal ileal stricturing. Single 6 mm polyp noted in the ascending colon removed by cold snare polypectomy. Impression likely adhesive bowel disease no evidence for Crohn's disease. Can stop steroids. Can discharge on low residue diet. Return if recurrent symptoms of bowel obstruction. Should have a full colonoscopy in 6 months to a year. Today's prep was suboptimal.
--- NOTE | 2025-02-15 08:56 | GI REPORT ---
[facility] Patient: KERA BETH : 1970 Sex at : Female Age: 54 Years Procedure: Colonoscopy Date: 02/15/2025 Attending Physician: Amadeo Smith MD Referring MD: Severino Mccall Indications: - Small bowel obstruction, suspected ileal Crohn's disease versus adhesions. Medications: - Monitored Anesthesia Care Complications: - No immediate complications. Estimated Blood Loss: - Estimated blood loss: None. Procedure: - The adult colonoscope was introduced through the anus and advanced to the terminal ileum, with identification of the appendiceal orifice and ileocecal valve. - The colonoscopy was performed without difficulty. - The quality of the bowel preparation was poor. - The patient tolerated the procedure well. Findings: - The perianal examination was normal. - A small (4-6 mm) polyp was found in the ascending colon. The polyp was sessile. The polyp was removed with a cold snare. Resection and retrieval were complete. - The terminal ileum appeared normal. Impression: - Preparation of the colon was poor. - One small (4-6 mm) polyp in the ascending colon, removed with a cold snare. Resected and retrieved. - The examined portion of the ileum was normal. Recommendation: - Discharge patient to home (ambulatory). - Discontinue steroids - Low residue diet - MiraLAX daily - Okay for discharge from a GI perspective Procedure Code(s): - 17403, Colonoscopy, flexible; with removal of tumor(s), polyp(s), or other lesion(s) by snare technique Diagnosis Code(s): - D12.2, Benign neoplasm of ascending colon CPT(R) - 2023 copyright [employer]. All Rights Reserved. The CPT codes, CCI edits and ICD codes generated are intended as suggestions and were generated based on input data. These codes are preliminary and upon arborist representative review may be revised to meet current compliance and payer requirements. The provider is responsible for the final determination of appropriate codes, and modifiers. Amadeo Smith MD This document has been electronically signed. Note Initiated:02/15/2025 Note Completed:02/15/2025 8:55 AM \\[id number]
[2025-02-15 09:09] VITALS: RESP 16; O2SAT 98
[2025-02-15] MEDS: PROPOFOL IV EMULSION 10 MG/ML 20 ML VIAL IV ONE (09:48)
[2025-02-15] MEDS: LIDOCAINE 2% 2 ML VIAL/AMP(20MG/ML) INFIL ONE (09:48)
[2025-02-15 10:16] VITALS: BP 123/79; PULSE 64
--- NOTE | 2025-02-15 14:52 | Anesthesiology Progress Note ---
Date of Service February 15, 2025 Anesthesia Post Procedure Vital Signs Vital Signs: Temp Pulse Pulse Resp BP BP Pulse Ox 02/15/25 10:13 36.3 C L 57 L 64 16 141/82 H 123/79 98 02/15/25 09:23 57 L 16 141/82 H 98 02/15/25 09:08 57 L 16 136/78 98 02/15/25 08:53 36.3 C L 62 18 130/77 96 02/15/25 08:01 36.3 C L 60 16 116/69 96 02/15/25 07:28 36.6 C 64 15 127/78 96 02/14/25 23:05 36.5 C 64 16 120/74 97 O2 Del Method 02/15/25 10:13 02/15/25 09:23 Room Air 02/15/25 09:08 Room Air 02/15/25 08:53 Room Air 02/15/25 08:01 Room Air 02/15/25 07:28 Room Air 02/14/25 23:05 Room Air Transfer of Care Handoff Completed per policy Notes Mental Status: alert / awake / arousable and participated in evaluation Nausea / Vomiting: adequately controlled Pain: adequately controlled Airway Patency, RR, SpO2: stable & adequate BP & HR: stable & adequate Hydration State: stable & adequate Anesthetic Complications: no major complications apparent and Pt Satisfied with anesthetic care
--- NOTE | 2025-02-15 18:52 | Discharge Summary ---
Discharge Summary Date of Service February 15, 2025 Principal Dx & Hospital Course #1 = Principal Diagnosis (1) Small bowel obstruction: Ms. Saucedo is a medical history significant for COPD, hyperlipidemia, ongoing tobacco abuse admitted for SBO Patient recently discharged from the same. GI evaluated patient and recommended outpatient C-scope; however, patient returns within 48 hours with recurrent SBO and LLQ transition point. Patient s/p 48 hours of steroids with KUB still demonstrating present bowel obstruction #Small bowel obstruction, 2/2 suspected Crohns v adhesions --Status post NG tube placement -- General Surgery consulted, recommend conservative management Supportive care, IV fluids Consult GI: started methylprednisone x 2 days, possible c-scope on Tuesday for suspected ileal Crohns, adhesions still possible etiology -- 02/15/25 s/p Colonoscopy by : Colonoscopy to terminal ileum Prep suboptimal. TI was entered for 20 cm there is no evidence of Crohn's disease or terminal ileal stricturing. Single 6 mm polyp noted in the ascending colon removed by cold snare polypectomy. Impression likely adhesive bowel disease no evidence for Crohn's disease. Can stop steroids. Can discharge on low residue diet. Return if recurrent symptoms of bowel obstruction. Should have a full colonoscopy in 6 months to a year. Today's prep was suboptimal. -- patient clinically improved (+)BMs tolerated diet well #Possible IBD on imaging from last confinement - no signs of Crohn's disease based on colonoscopy above, but prep suboptimal, recommend full colonoscopy in 6 months #Abnormal CT Findings Hepatomegaly. Hypodense left adrenal nodule measuring 1.5 cm is probably an adenoma. Please refer to full report in the Ordered Studies section Further work up, management, and ff up as outpatient History of COPD, lung status at baseline ongoing tobacco abuse DVT prophylaxis per Lovenox subcu Full code Notes For Next Care Provider #Abnormal CT Findings Hepatomegaly. Hypodense left adrenal nodule measuring 1.5 cm is probably an adenoma. Please refer to full report in the Ordered Studies section Further work up, management, and ff up as outpatient Medication Changes From Visit as per medical reconciliation Admission HPI Per Admitting Provider History obtained from patient, family, and records. Medical history significant for COPD, hyperlipidemia, ongoing tobacco abuse. Recent confinement February 05 to [address] abdomen showed bowel obstruction along with ileal hyperenhancement, possible IBD. GI recommended outpatient colonoscopy. Patient still uncomfortable at time of discharge. Upon arrival home, patient worsening abdominal distention/pain associated with emesis. Denies chest pain, SOB. Bowel movements not that good as per patient. No fever, no chills. Patient returned to ER for evaluation. NGT subsequently inserted at the ER. Medical History as above Surgical History : Hysterectomy Family History : Negative IBD Personal/Social history : Half pack daily, no EtOH intake, [employer] Exam Per Admitting Provider GENERAL: Slightly anxious, no respiratory distress SKIN: Normal color, warm HEENT: Bespectacled, [place] palpebral conjunctivae, no ptosis, dry buccal mucosa, NGT in place NECK : Supple, no tenderness CHEST : Decreased breath sounds, no tenderness HEART : RRR, no obvious murmurs ABDOMEN: Distention, central abdominal tenderness EXTREMITIES : No LE swelling/tenderness, palpable pulses, no other conspicuous deformities noted NEUROLOGIC : Coherent, no facial asymmetry, no other gross focality Discharge Exam General- oriented x 3, not in distress, speaks in sentences with no effort or accessory muscle use Eyes- anicteric Neck- no JVD Lungs- clear breath sounds bilaterally, no rales/wheezes Heart- normal rate, regular rhythm; no murmurs Abdomen- normal bowel sounds, nondistended, soft, nontender Extremities- no pretibial edema, no calf tenderness Neuro- alert, oriented x 3; no gross focal neurologic deficits Skin- warm & dry Updated Medication List Medication Instructions Recorded Confirmed Type diphenhydramine HCl 25 mg 25 mg PO HS Sleep 06/13/22 02/10/25 History disintegrating tablet (Unisom SleepMelts) albuterol sulfate 90 mcg/actuation 2 puff inhalation Q4 PRN Wheezing 02/05/25 02/10/25 History aerosol inhaler diclofenac sodium 75 mg 75 mg PO AMHS 02/05/25 02/10/25 History tablet,delayed release fluticasone fur. 200 mcg-umeclid 1 ea inhalation QAM 02/05/25 02/10/25 History 62.5 mcg-vilant 25 mcg inhalat.powder (Trelegy Ellipta) fluticasone propionate 50 2 spray intranasal AMHS 02/05/25 02/10/25 History mcg/actuation nasal spray,suspension gabapentin 300 mg capsule 300 mg PO BID PRN arm nerve pain 02/05/25 02/10/25 History loratadine 10 mg tablet 10 mg PO QPM 02/05/25 02/10/25 History montelukast 10 mg tablet 10 mg PO QAM 02/05/25 02/10/25 History phentermine 30 mg capsule 30 mg PO QAM 02/05/25 02/10/25 History docusate sodium 100 mg capsule 100 mg PO BID #1 cap 02/08/25 02/10/25 Rx (Colace) Hospital Stay Data Consultations 02/10/25 19:45 ED Decision to Admit Stat 02/10/25 20:36 Consult General Surgery Routine 02/12/25 15:59 Consult Gastroenterology Routine Procedures Performed Operation Date: 02/15/25 16:30 Actual Procedures p Colonoscopy Polypectomy - Amadeo Smith MD Diagnostic Imagining Performed Laboratory Results WBC 13.93 K/ul (4.8-10.8) H 02/14/25 10:35 RBC 4.50 M/uL (4.20-5.40) 02/14/25 10:35 Hgb 13.9 g/dl (12.0-16.0) 02/14/25 10:35 Hct 40.2 % (37.0-47.0) 02/14/25 10:35 MCV 89.3 fL (80.0-100.0) 02/14/25 10:35 MCH 30.9 pg (25.0-34.0) 02/14/25 10:35 MCHC 34.6 g/dL (32.0-36.0) 02/14/25 10:35 RDW Std Deviation 43.3 fL (36.4-46.3) 02/14/25 10:35 RDW Coeff of Nathen 13.2 % (11.5-14.5) 02/14/25 10:35 Plt Count 414 K/uL (130-400) H 02/14/25 10:35 MPV 9.3 fL (9.4-12.4) L 02/14/25 10:35 Immature Gran % (Auto) 0.3 % 02/11/25 07:03 Neut % (Auto) 61.8 % 02/11/25 07:03 Lymph % (Auto) 24.7 % 02/11/25 07:03 [place] % (Auto) 7.9 % 02/11/25 07:03 Eos % (Auto) 5.0 % 02/11/25 07:03 Baso % (Auto) 0.3 % 02/11/25 07:03 Neut # (Auto) 3.86 K/uL (1.40-6.50) 02/11/25 07:03 Lymph # (Auto) 1.54 K/uL (1.20-3.40) 02/11/25 07:03 [place] # (Auto) 0.49 K/uL (0.11-0.59) 02/11/25 07:03 Eos # (Auto) 0.31 K/uL (0.00-0.50) 02/11/25 07:03 Baso # (Auto) 0.02 K/uL (0.00-0.20) 02/11/25 07:03 Immature Gran # (Auto) 0.02 K/uL (0.01-0.20) 02/11/25 07:03 ESR 47 mm/hr (0-30) H 02/10/25 16:29 Sodium 138 mmol/L (136-145) 02/14/25 10:35 Potassium 3.9 mmol/L (3.5-5.1) 02/14/25 10:35 Chloride 107 mmol/L (98-107) 02/14/25 10:35 Carbon Dioxide 24 mmol/L (21-32) 02/14/25 10:35 Anion Gap 7 (3-11) 02/14/25 10:35 BUN 10 mg/dl (6-23) 02/14/25 10:35 Creatinine 0.53 mg/dl (0.6-1.2) L 02/14/25 10:35 Est Cr Clr Drug Dosing 121.1 ml/min 02/14/25 10:35 eGFR 109.83 02/14/25 10:35 BUN/Creatinine Ratio 18.9 (10-20) 02/14/25 10:35 Glucose 120 mg/dl (70-99(Fasting)) H 02/14/25 10:35 Calcium 9.0 mg/dl (8.6-10.3) 02/14/25 10:35 Phosphorus 3.3 mg/dl (2.5-4.9) 02/14/25 10:35 Magnesium 2.1 mg/dl (1.7-2.4) 02/14/25 10:35 Total Bilirubin 0.6 mg/dl (0.2-1.0) 02/10/25 16:29 AST 26 U/L (13-39) 02/10/25 16:29 ALT 23 U/L (7-52) 02/10/25 16:29 Alkaline Phosphatase 78 U/L (34-104) 02/10/25 16:29 Troponin I High Sens 3.9 pg/ml (0-14) 02/10/25 16:29 C-Reactive Protein 2.37 mg/dl (0-0.5) H 02/10/25 16:29 Total Protein 7.6 gm/dl (6.0-8.3) 02/10/25 16: Albumin 4.5 gm/dl (3.4-5.0) 02/10/25 16: Globulin 3.1 gm/dl (2.5-4.0) 02/10/25 16: Albumin/Globulin Ratio 1.5 (0.9-2) 02/10/25 16:29 Lipase 53 U/L (11-82) 02/10/25 16:29 Urine Color Yellow 02/10/25 18:20 Urine Appearance Clear (Clear) 02/10/25 18:20 Urine pH 6.0 (4.5-7.5) 02/10/25 18:20 Ur Specific [place] > 1.045 (1.000-1.030) H 02/10/25 18:20 Urine Protein Trace (Negative) H 02/10/25 18:20 Urine Glucose (UA) Negative (Negative) 02/10/25 18:20 Urine Ketones 2+ (Negative) H 02/10/25 18:20 Urine Blood Negative (Negative) 02/10/25 18:20 Urine Nitrite Negative (Negative) 02/10/25 18:20 Urine Bilirubin Negative (Negative) 02/10/25 18:20 Urine Urobilinogen Negative (Negative) 02/10/25 18:20 Ur Leukocyte Esterase Negative (Negative) 02/10/25 18:20 Urine WBC (Auto) 0-5 /hpf (0-5) 02/10/25 18:20 Urine RBC (Auto) 3-5 /hpf (0-2) H 02/10/25 18:20 U Hyaline Cast (Auto) 0-2 /lpf (0-2) 02/10/25 18:20 U Epithel Cells (Auto) 0-2 /hpf (0-2) 02/10/25 18:20 Urine Bacteria (Auto) None Seen (None Seen) 02/10/25 18:20 Calcium Oxalate Crystal Present (None Prsent) A 02/10/25 18:20 Urine Comment 02/10/25 18:20 Impressions Abdomen/Pelvis CT 02/10/25 16:18 CT ABDOMEN and PELVIS with INTRAVENOUS CONTRAST HISTORY: Abdominal pain TECHNIQUE: CT abdomen and pelvis with contrast. IV CONTRAST: 100 mL of OMNIPAQUE 300 ENTERIC CONTRAST: Not Given COMPARISON: CT abdomen pelvis February 05, 2025. FINDINGS: LOWER CHEST: Unremarkable LIVER: No focal lesion identified. Hepatomegaly. GALLBLADDER/BILIARY: Unremarkable gallbladder. No abnormal biliary dilatation. SPLEEN: Unremarkable. PANCREAS: Unremarkable. ADRENALS: Hypodense left adrenal nodule measuring 1.5 cm is probably an adenoma. KIDNEYS: Unremarkable. No stones or hydronephrosis identified. PERITONEUM/RETROPERITONEUM. Small ascites. No lymphadenopathy by size criteria. No aortic aneurysm. GASTROINTESTINAL: Interval worsening of small bowel obstruction with increasingly distended loops of small bowel. Apparent transition point is identified in the left lower pelvis (series 300, image 45; series 2, image 68). Normal appendix REPRODUCTIVE: Hysterectomy. BONES: No acute findings. IMPRESSION: Interval worsening of the small bowel obstruction with an apparent transition point identified in the left lower pelvis. Given evidence of prior hysterectomy in this area, this may represent mechanical obstruction secondary to adhesive changes. Notification to clinician of alert: [facility] ED was notified about above findings by phone on February 10, 2025 at 7:04 PM by Naresh Miller MD. Readback confirmation was obtained. Electronically signed by Naresh Miller 02-10-2025 7:08 PM KUB X-Ray 02/12/25 09:23 KUB HISTORY: small bowel obstruction COMPARISON STUDY: 02/10/2025 FINDINGS: Nasogastric tube tip is in the proximal stomach with the sidehole near the GE junction. There are multiple dilated small bowel loops at the central to lower abdomen measuring up to 6 cm maximum diameter. No colonic distention seen. No gross free air. IMPRESSION: Grossly stable small bowel obstruction. ACT 112: Negative or not required by law. The above report was generated using voice recognition software. It may contain grammatical, syntax or spelling errors. Electronically signed by: Silvestre Sevilla M.D. 02/12/2025 12:10 PM Chest/Abdomen X-ray 02/13/25 09:59 XR abdomen 2V w PA chest CLINICAL HISTORY: Small bowel obstruction COMPARISON STUDY: 02/12/2025 FINDINGS: CHEST: Nasogastric tube tip is in the proximal stomach just beyond the GE junction, partially withdrawn. Heart size and pulmonary vasculature are normal. No consolidation, pleural effusion, or pneumothorax. ABDOMEN: There are a few dilated small bowel loops measuring up to 5 cm diameter, improved. No colonic distention seen. No gross free air. IMPRESSION: 1. No acute findings in the chest. 2. Persistent but improved small bowel distention. 3. Nasogastric tube has been partially withdrawn, tip is just beyond the GE junction. ACT 112: Negative or not required by law. Electronically signed by: Silvestre Sevilla M.D. 02/13/2025 11:38 AM Abdomen X-Ray 02/14/25 07:00 XR abdomen min 2V CLINICAL HISTORY: Small bowel obstruction. Follow-up study. COMPARISON STUDY: 02/13/2025 FINDINGS: There is a nasogastric tube within the stomach. There are persistent dilated small bowel loops measuring up to 56 mm in diameter. There is gas present within nondistended colon. Within the pelvis there are multiple phleboliths. IMPRESSION: 1. Persistent small bowel obstructive pattern without radiographic evidence of improvement 2. Nasogastric tube within the stomach ACT 112: Negative or not required by law. Electronically signed by: Minh Grubbs M.D. 02/14/2025 9:27 AM Pending Results Patient Have Any Pending Studies at Discharge: No Discharge Instructions Given to Patient (Per Discharging Provider) YOU NEED TO HAVE A REPEAT COLONOSCOPY IN 6 MONTHS. PLEASE COORDINATE WITH YOUR PRIMARY CARE PHYSICIAN TO HAVE THIS PROCEDURE SCHEDULED. Please drink plenty of fluids. Low fiber diet for now. Ambulate frequently. PLEASE CALL YOUR PRIMARY CARE PHYSICIAN OR RETURN TO THE ER IF WITH WORSENING OF SYMPTOMS, INCLUDING abdominal pain, nausea/vomiting, fever/chills, diarrhea/constipation, etc. FOLLOW UP WITH PRIMARY CARE PHYSICIAN in 1 week. TAKE CARE! Total Time Total Time Spent Total Time Spent (In Minutes): 45 minutes
== END 2025-02-15 11:45 | disposition home or self-care (01) | DRG 390 ==
LOC: ED 15:52 → SUATTDRO 19:54 → 3N 19:54

== ENCOUNTER 2025-03-19 00:45 | Inpatient (IN) ==
[2025-03-19] MEDS: ONDANSETRON INJ 2 MG/ML 2 ML VIAL IV STA (01:13)
[2025-03-19] MEDS: MoRPHine SULFATE 4 MG/ML 1 ML CARP\\VIAL IV PRN (01:13)
[2025-03-19] MEDS: SODIUM CHLORIDE 0.9% 1,000 ML IV ONE (01:13)
[2025-03-19 01:33] LABS: Hematocrit (blood only) 44.4 % (37.0-47.0); Hemoglobin 14.6 g/dl (12.0-16.0); Immature Granulocytes # (auto) 0.04 K/uL (0.01-0.20); Immature Granulocytes % (auto) 0.3 %; Mean Corpuscular Hemoglobin 29.4 pg (25.0-34.0); Mean Corpuscular Volume 89.5 fL (80.0-100.0); Platelet Count 429 K/uL (130-400); RDW Standard Deviation 45.8 fL (36.4-46.3); Red Blood Count 4.96 M/uL (4.20-5.40); White Blood Count 11.82 K/ul (4.8-10.8)
[2025-03-19 01:41] LABS: Appearance Urine Cloudy (Clear); Bacteria Urine Automated None Seen (None Seen); Cast Urine Automated 0-2 /lpf (0-2); Epithelial Cell Urine Auto 0-2 /hpf (0-2); Glucose Urine UA Negative (Negative); WBC Urine Automated 0-5 /hpf (0-5)
[2025-03-19 01:50] LABS: Alanine Aminotransferase 8.0 U/L (7-52); Albumin Globulin Ratio 1.4 (0.9-2); Alkaline Phosphatase 66.0 U/L (34-104); Anion Gap 6.0 (3-11); Bilirubin,Total 0.4 mg/dl (0.2-1.0); Blood Urea Nitrogen 13.0 mg/dl (6-23); Calcium 9.3 mg/dl (8.6-10.3); Carbon Dioxide 26.0 mmol/L (21-32); Chloride 104.0 mmol/L (98-107); Creatinine Clr Calc Pharmacy 87.7 ml/min; Globulin 3.1 gm/dl (2.5-4.0); Glucose 123.0 mg/dl (70-99(Fasting)); Lipase 50.0 U/L (11-82); Magnesium 2.2 mg/dl (1.7-2.4); Potassium 4.0 mmol/L (3.5-5.1); Sodium 136.0 mmol/L (136-145); Total Protein 7.3 gm/dl (6.0-8.3)
[2025-03-19] MEDS: OPTIRAY 320 100ml IV ONE (01:59)
--- NOTE | 2025-03-19 03:23 | CT Scan Report ---
EXAM: CT abd pelvis IV con only CLINICAL HISTORY: Eval for SBO/abd pains. TECHNIQUE: CT of the abdomen and pelvis was performed with the following protocol: axial images, and reconstructed coronal and sagittal images. 93 cc of Optiray 320 as intravenous contrast was administered. One of the following dose reduction techniques was utilized for this exam: automated exposure control, adjustment of the mA and/or kV according to patient size, and use of iterative reconstruction. COMPARISON: CR 02/14/2025, 02/13/2025, 02/12/2025, CRs and CT 02/10/2025, CT 02/05/2025 reviewed. FINDINGS: Abdomen: Bowel: There has been an interval removal of the nasogastric tube and a significant regression of dilated small bowel loops, as seen in the CR dated 02/14/2025. There is persistent dilatation of a small bowel loop extending from the left lower lyssa-abdomen to the pelvis, measuring 44 mm in maximum caliber, showing a small bowel feces sign, with abrupt change of luminal caliber just underneath the anterior pelvic wall in the midline, with a transition point showing circumferential enhancing mural thickening. There is mild circumferential enhancing mural thickening with mucosal hyperenhancement of multiple pelvic small bowel loops, with mesenteric haziness and minimal interloop fluid. The visualized colon appears unremarkable. The appendix appears unremarkable. Liver: The liver measures 17.5 cm in size. No focal lesions, cysts, or masses are identified. Gallbladder and Biliary System: The gallbladder is distended. No radiodense gallstones are identified. Pancreas: The pancreatic head, body, and tail are visualized and appear normal in size and density. Spleen: The spleen is normal in size, shape, and density. No splenic lesions or masses are identified. Kidneys and Adrenal Glands: Both kidneys are normal in size. There are no renal calculi or hydronephrosis. There is a stable 12 mm isoenhancing nodule in the left adrenal gland, possibly an adenoma. The right adrenal gland appears unremarkable. Pelvis: Urinary bladder: partially distended. Status post hysterectomy. No adnexal lesions. There is minimal free fluid in the pelvis with mild fat stranding. Peritoneal and Retroperitoneal Structures: Subcentimetric mesenteric nodes are noted. Bones and Soft Tissues: There are mild degenerative changes in the lumbar spine. IMPRESSION: 1. Interval removal of the nasogastric tube and significant regression of dilated small bowel loops, as seen in the CR dated 02/14/2025. 2. Persistent dilatation of a small bowel loop extending from the left lower lyssa-abdomen to the pelvis, measuring 44 mm in maximum caliber, showing a small bowel feces sign, with abrupt change of luminal caliber just underneath the anterior pelvic wall in the midline, with a transition point showing circumferential enhancing mural thickening. The findings represent persistent localized acute small bowel obstruction. The possibility of an inflammatory stricture due to underlying Crohn's disease needs to be considered. Further workup is recommended. 3. Mild circumferential enhancing mural thickening with mucosal hyperenhancement of multiple pelvic small bowel loops, with mesenteric haziness and minimal interloop fluid. 4. Minimal free fluid in the pelvis with mild fat stranding. 5. The rest of the findings are as described above and are interval stable. Electronically signed by Edwardo Evans 03-19-2025 03:22 AM
--- NOTE | 2025-03-19 03:47 | Surgery Consultation ---
Date of Consultation March 19, 2025 Assessment & Plan (1) Small bowel obstruction: I discussed with the treating clinician the emergency department the patient is being admitted on the hospitalist service. From a surgical perspective we recommend the following: Provide analgesics but use sparingly as we would not mask any underlying abdominal pathology that may be present Provide antiemetics as needed Hydrate the patient with IV fluids Implement n.p.o. status I discussed using an NG tube with the patient and she wishes to avoid using this modality at this time. As patient has not had emesis in approximately 4 hours and her abdominal exam is relatively benign at this time, I think we can hold on this modality. I did discuss with the patient if she has further nausea or vomiting or worsening of her abdominal exam this modality will need to be reconsidered Hopefully conservative measures alone will resolve her small bowel obstruction as they did in the past Additional recommendations are forthcoming based on her clinical course as unfolds Supervising Physician Co-Signing Physician Notes Patient seen and examined, labs and imaging reviewed, agree with above. 54-year-old female known to service from recent admissions for small bowel obstruction. History of hysterectomy, imaging has shown thickening and narrowing consistent with stricture versus external compression. She did have a colonoscopy at her last visit which showed a normal terminal ileum. She had been doing well since her last admission and not having any issues until yesterday when she started developing pain. She then vomited later in the day and came to the ER. She is feeling better this morning, no flatus or bowel movement but is feeling hungry with no nausea and the bloating is far less. No pain. On exam she is afebrile with stable vitals. Her abdomen is soft, tender to palpation of the right lower quadrant, no guarding or rebound. CT scan personally viewed and interpreted and agree with the assessment of persistent partial small bowel obstruction with fecalization of the small bowel in the mid to distal ileum. Still with the thickening and enhancement concerning for IBD versus external compression from scarring. As she is feeling better, will continue with nonoperative management, if no improvement may need exploration. She does have a follow-up appoint with GI in a month, and perhaps she could undergo further evaluation for IBD such as capsule endoscopy or CT enterography. Continue n.p.o. until return of bowel function, may advance to clear liquids if passes flatus. KUB in the morning. History of Present Illness Reason for Consultation: Small bowel obstruction History of Present Illness This is a 50. Female who presented to the emergency department secondary to abdominal pain. The patient said that the pain began last evening fairly suddenly and onset. She says the pain does not radiate or have other modifying factors. She was recently admitted to [facility] in February of this year secondary to a small bowel obstruction that she notes was treated successfully in a conservative manner. She does note that she has had prior abdominal surgeries in the form of a laparoscopy followed by a total abdominal hysterectomy and bilateral salpingo-oophorectomy. She says that since this hysterectomy she has had at least 6 small bowel obstructions each treated conservatively never requiring surgery. With her current presentation she has had some nausea and vomiting but has not had any emesis in approximately 4 hours. She notes she had a bowel movement yesterday but has not been passing flatus since her symptomatology began. Since her the emergency department she has had labs and imaging which I independently reviewed. A CT scan of the abdomen pelvis showed the patient had dilatation of small bowel loops in the left lower hemiabdomen raising the concern for a small bowel obstruction. Labs included CBC white blood cell count was elevated 11.8. Hemoglobin and hematocrit were noted to be normal. Platelet count was 4 29,000. Chemistry profile showed sodium, potassium, BUN, creatinine were all normal. At the time my interview she was resting comfortably in bed and she was no distress. Allergies Allergy/AdvReac Type Severity Reaction Status Date / Time cefuroxime [From Ceftin] Allergy Intermediate ITCHY RASH Verified 02/05/25 21:22 cephalexin [From Keflex] Allergy Intermediate ITCHY RASH Verified 02/05/25 21:22 erythromycin base Allergy Intermediate ITCHY RASH Verified 02/05/25 21:22 Penicillins Allergy Intermediate ITCHY RASH Verified 02/05/25 21:22 Tetracyclines Allergy Intermediate ITCHY RASH Verified 02/05/25 21:22 Home Medications Medication Instructions Recorded Confirmed Type diphenhydramine HCl 25 mg 25 mg PO HS Sleep 06/13/22 03/19/25 History disintegrating tablet (Unisom SleepMelts) albuterol sulfate 90 mcg/actuation 2 puff inhalation Q4 PRN Wheezing 02/05/25 03/19/25 History aerosol inhaler diclofenac sodium 75 mg 75 mg PO AMHS 02/05/25 03/19/25 History tablet,delayed release fluticasone fur. 200 mcg-umeclid 1 ea inhalation QAM 02/05/25 03/19/25 History 62.5 mcg-vilant 25 mcg inhalat.powder (Trelegy Ellipta) fluticasone propionate 50 2 spray intranasal AMHS 02/05/25 03/19/25 History mcg/actuation nasal spray,suspension gabapentin 300 mg capsule 300 mg PO BID PRN arm nerve pain 02/05/25 03/19/25 History loratadine 10 mg tablet 10 mg PO QPM 02/05/25 03/19/25 History montelukast 10 mg tablet 10 mg PO QAM 02/05/25 03/19/25 History docusate sodium 100 mg capsule 100 mg PO BID #1 cap 02/08/25 03/19/25 Rx (Colace) bupropion HCl 150 mg 24 hr tablet, 150 mg PO QAM 03/19/25 03/19/25 History extended release polyethylene glycol 3350 17 17 g PO DAILY 03/19/25 03/19/25 History gram/dose oral powder (Miralax) Patient History Medical History Tobacco use Bowel obstruction Surgical History H/O: hysterectomy Social History Smoking Status: Current every day smoker Tobacco Type: Cigarettes Second Hand Exposure: Yes; Do You Dip or Chew Tobacco: No; Hx Alcohol Use: No Hx Substance Use: No Preferred Language: Serbian Communication Ability: Effective Technical Specialist Cytogenetics Required: No Beliefs That Will Affect Care: None Current Living Situation: Spouse and Family Current Living Situation Comment: & Son Feels Safe at Home: Yes Safety Concerns: Feels Safe At This Time Assistive Devices: Glasses Review of Systems Review of Systems: All systems reviewed & are unremarkable except as noted in HPI & below Physical Exam Constitutional: WD/WN, vitals as above Eyes: no conjunctival abnormality Wears glasses ENMT: Ears: no hearing impairment Neck: trachea midline Respiratory: normal respiratory effort; no respiratory distress and no labored breathing Cardiovascular: Rate/Rhythm: regular rate and regular rhythm Gastrointestinal (Abdomen): The patient's abdomen is soft and nonrigid without rebound tenderness, guarding, or signs of peritonitis. She had minimal pain with palpation at the time of my exam Musculoskeletal: No calf tenderness Skin: no rashes Neurologic: moves all extremities Psychiatric: A+Ox3, euthymic affect Results & Data Vital Signs (Past 12 Hours) Vital Signs Temp Pulse Pulse Resp BP BP Pulse Ox 03/19/25 03:00 69 15 123/81 94 03/19/25 01:18 83 03/19/25 01:18 81 20 124/79 97 03/19/25 00:53 36.6 C 90 18 110/73 92 O2 Del Method 03/19/25 03:00 Room Air 03/19/25 01:18 03/19/25 01:18 Room Air 03/19/25 00:53 Room Air PG Care Time/CCT Total # of Minutes Spent Total Time Spent with Patient: Total time spent is greater than 50% in coordination of care (as documented) at patient's floor/unit and/or counseling patient: Coding Level of Care Code 44189 IN/OBS CONSULT LVL 5,80M Diagnoses Small bowel obstruction K56.609
[2025-03-19] MEDS: SODIUM CHLORIDE 0.9% 1,000 ML IV SCH (03:59)
--- NOTE | 2025-03-19 05:08 | History & Physical Report ---
Date of Service March 19, 2025 Assessment & Plan (1) Small bowel obstruction: Plan: 54-year-old female with past medical history significant for hyperlipidemia, COPD, chronic rhinitis, history of small bowel obstructions due to adhesions rotator cuff arthropathy of left shoulder, degenerative disc disease, ongoing smoking, depression and anxiety comes with abdominal pain and found to have small bowel obstruction. Patient had multiple admissions for bowel obstructions and last was in February 2025. Patient states she is taking stool softeners as prescribed and she is having soft bowel movements daily. Last bowel movement was yesterday morning. Since yesterday afternoon she start developing abdominal pain at work and when she came home the pain got progressively worse. Last night at 11 PM she had a episode of vomiting after which she felt slightly better. As symptoms did not improve she came to the ER. With the pain medication in the ER currently pain is much improved. Currently no nausea. Micturating okay. No fevers. Denies any chest pain. She has some shortness of breath and attributes to her smoking. Has smoker's cough. No headache. No runny nose no sore throat. No earaches. Patient thinks she has acid reflux and she feels food coming into her throat after eating. Currently resting comfortably and Hemodynamics are okay. Small bowel obstruction Recurrent Appreciate surgical input N.p.o. IV fluids Pain control IV antiemetics as needed Monitor the medical floor History of COPD Currently stable Continue home inhalers Tobacco abuse Counseling Depression and anxiety On Wellbutrin Abnormal CT findings 12 mm left frontal lobe gland nodule possible adenoma Needs follow-up Questionable inflammatory bowel disease Last admission on 02/15/2025 patient had colonoscopy to terminal ileum Prep was suboptimal but no evidence of Crohn's disease or terminal ileal stricturing was found. A single 6 m polyp was removed Impression was likely adhesive bowel disease no evidence of Crohn's disease and recommendation to do full colonoscopy in 6 months to year. Patient states has appointment with GI in April DVT prophylaxis Lovenox Disposition Medical floor Full code. History of Present Illness Chief Complaint: Abdominal pain Primary Care Provider: Colton No MD 54-year-old female with past medical history significant for hyperlipidemia, COPD, chronic rhinitis, history of small bowel obstructions due to adhesions rotator cuff arthropathy of left shoulder, degenerative disc disease, ongoing smoking, depression and anxiety comes with abdominal pain and found to have small bowel obstruction. Patient had multiple admissions for bowel obstructions and last was in February 2025. Patient states she is taking stool softeners as prescribed and she is having soft bowel movements daily. Last bowel movement was yesterday morning. Since yesterday afternoon she start developing abdominal pain at work and when she came home the pain got progressively worse. Last night at 11 PM she had a episode of vomiting after which she felt slightly better. As symptoms did not improve she came to the ER. With the pain medication in the ER currently pain is much improved. Currently no nausea. Micturating okay. No fevers. Denies any chest pain. She has some shortness of breath and attributes to her smoking. Has smoker's cough. No headache. No runny nose no sore throat. No earaches. Patient thinks she has acid reflux and she feels food coming into her throat after eating. Currently resting comfortably and Hemodynamics are okay. Past medical history. As mentioned above. Past surgical history. Diagnostic laparoscopy. Total abdominal hysterectomy with removal of tubes. Social history. . Smokes 1 pack a day for last 15 years. No alcohol use. No drug use. Family history. No family history on file. Allergies Allergy/AdvReac Type Severity Reaction Status Date / Time cefuroxime [From Ceftin] Allergy Intermediate ITCHY RASH Verified 02/05/25 21:22 cephalexin [From Keflex] Allergy Intermediate ITCHY RASH Verified 02/05/25 21:22 erythromycin base Allergy Intermediate ITCHY RASH Verified 02/05/25 21:22 Penicillins Allergy Intermediate ITCHY RASH Verified 02/05/25 21:22 Tetracyclines Allergy Intermediate ITCHY RASH Verified 02/05/25 21:22 Home Medications Medication Instructions Recorded Confirmed Type diphenhydramine HCl 25 mg 25 mg PO HS Sleep 06/13/22 03/19/25 History disintegrating tablet (Unisom SleepMelts) albuterol sulfate 90 mcg/actuation 2 puff inhalation Q4 PRN Wheezing 02/05/25 03/19/25 History aerosol inhaler diclofenac sodium 75 mg 75 mg PO AMHS 02/05/25 03/19/25 History tablet,delayed release fluticasone fur. 200 mcg-umeclid 1 ea inhalation QAM 02/05/25 03/19/25 History 62.5 mcg-vilant 25 mcg inhalat.powder (Trelegy Ellipta) fluticasone propionate 50 2 spray intranasal AMHS 02/05/25 03/19/25 History mcg/actuation nasal spray,suspension gabapentin 300 mg capsule 300 mg PO BID PRN arm nerve pain 02/05/25 03/19/25 History loratadine 10 mg tablet 10 mg PO QPM 02/05/25 03/19/25 History montelukast 10 mg tablet 10 mg PO QAM 02/05/25 03/19/25 History docusate sodium 100 mg capsule 100 mg PO BID #1 cap 02/08/25 03/19/25 Rx (Colace) bupropion HCl 150 mg 24 hr tablet, 150 mg PO QAM 03/19/25 03/19/25 History extended release polyethylene glycol 3350 17 17 g PO DAILY 03/19/25 03/19/25 History gram/dose oral powder (Miralax) Past Med/Surg History Problem List (Updated 03/19/25 @ 06:44 by Wilfredo Cook PA-C) Nausea (Acute) Abdominal pain (Acute) Small bowel obstruction (Acute) Medical History Tobacco use Bowel obstruction Surgical History H/O: hysterectomy Social History Smoking Status: Current every day smoker Tobacco Type: Cigarettes Second Hand Exposure: Yes; Do You Dip or Chew Tobacco: No; Hx Alcohol Use: No Hx Substance Use: No Preferred Language: Chinese Communication Ability: Effective Student Driving Instructor Required: No Beliefs That Will Affect Care: None Current Living Situation: Spouse and Family Current Living Situation Comment: & Son Feels Safe at Home: Yes Safety Concerns: Feels Safe At This Time Assistive Devices: Glasses Review of Systems Review of Systems: All systems reviewed & are unremarkable except as noted in HPI & below Physical Exam Physical Exam: General- Not in distress. Head- atraumatic Eyes- PERRL. ENT- oropharynx clear Neck- supple, no JVD. Lungs- clear to auscultation no wheezing or crackles Heart- regular rate and rhythm; no murmur, no gallop. Abdomen- no bowel sounds, mild epigastric tenderness, no distension Extremities- no pretibial edema, no erythema seen Neuro- alert, oriented PERRL, no facial palsy; no dysarthria; moves extremities Results & Data Results & Data Vital Signs (Past 12 Hours) Vital Signs Temp Pulse Pulse Resp BP BP Pulse Ox 03/19/25 04:03 91 H 17 123/83 96 03/19/25 03:00 69 15 123/81 94 03/19/25 01:18 83 03/19/25 01:18 81 20 124/79 97 03/19/25 00:53 36.6 C 90 18 110/73 92 O2 Del Method 03/19/25 04:03 Room Air 03/19/25 03:00 Room Air 03/19/25 01:18 03/19/25 01:18 Room Air 03/19/25 00:53 Room Air Diagnostic Findings Laboratory Results WBC 11.82 K/ul (4.8-10.8) H 03/19/25 01:14 RBC 4.96 M/uL (4.20-5.40) 03/19/25 01:14 Hgb 14.6 g/dl (12.0-16.0) 03/19/25 01:14 Hct 44.4 % (37.0-47.0) 03/19/25 01:14 MCV 89.5 fL (80.0-100.0) 03/19/25 01:14 MCH 29.4 pg (25.0-34.0) 03/19/25 01:14 MCHC 32.9 g/dL (32.0-36.0) 03/19/25 01:14 RDW Std Deviation 45.8 fL (36.4-46.3) 03/19/25 01:14 RDW Coeff of Nathen 13.9 % (11.5-14.5) 03/19/25 01:14 Plt Count 429 K/uL (130-400) H 03/19/25 01:14 MPV 8.8 fL (9.4-12.4) L 03/19/25 01:14 Immature Gran % (Auto) 0.3 % 03/19/25 01:14 Neut % (Auto) 78.5 % 03/19/25 01:14 Lymph % (Auto) 14.3 % 03/19/25 01:14 Kingfisher % (Auto) 4.3 % 03/19/25 01:14 Eos % (Auto) 2.3 % 03/19/25 01:14 Baso % (Auto) 0.3 % 03/19/25 01:14 Neut # (Auto) 9.28 K/uL (1.40-6.50) H 03/19/25 01:14 Lymph # (Auto) 1.69 K/uL (1.20-3.40) 03/19/25 01:14 Kingfisher # (Auto) 0.51 K/uL (0.11-0.59) 03/19/25 01:14 Eos # (Auto) 0.27 K/uL (0.00-0.50) 03/19/25 01:14 Baso # (Auto) 0.03 K/uL (0.00-0.20) 03/19/25 01:14 Immature Gran # (Auto) 0.04 K/uL (0.01-0.20) 03/19/25 01:14 Sodium 136 mmol/L (136-145) 03/19/25 01:14 Potassium 4.0 mmol/L (3.5-5.1) 03/19/25 01:14 Chloride 104 mmol/L (98-107) 03/19/25 01:14 Carbon Dioxide 26 mmol/L (21-32) 03/19/25 01:14 Anion Gap 6 (3-11) 03/19/25 01:14 BUN 13 mg/dl (6-23) 03/19/25 01:14 Creatinine 0.74 mg/dl (0.6-1.2) 03/19/25 01:14 Est Cr Clr Drug Dosing 87.7 ml/min 03/19/25 01:14 eGFR 96.09 03/19/25 01:14 BUN/Creatinine Ratio 17.6 (10-20) 03/19/25 01:14 Glucose 123 mg/dl (70-99(Fasting)) H 03/19/25 01:14 Calcium 9.3 mg/dl (8.6-10.3) 03/19/25 01:14 Magnesium 2.2 mg/dl (1.7-2.4) 03/19/25 01:14 Total Bilirubin 0.4 mg/dl (0.2-1.0) 03/19/25 01:14 AST 11 U/L (13-39) L 03/19/25 01:14 ALT 8 U/L (7-52) 03/19/25 01:14 Alkaline Phosphatase 66 U/L (34-104) 03/19/25 01:14 Total Protein 7.3 gm/dl (6.0-8.3) 03/19/25 01:14 Albumin 4.2 gm/dl (3.4-5.0) 03/19/25 01:14 Globulin 3.1 gm/dl (2.5-4.0) 03/19/25 01:14 Albumin/Globulin Ratio 1.4 (0.9-2) 03/19/25 01:14 Lipase 50 U/L (11-82) 03/19/25 01:14 Urine Color Yellow 03/19/25 01:14 Urine Appearance Cloudy (Clear) A 03/19/25 01:14 Urine pH 7.0 (4.5-7.5) 03/19/25 01:14 Ur Specific Isabella 1.024 (1.000-1.030) 03/19/25 01:14 Urine Protein Negative (Negative) 03/19/25 01:14 Urine Glucose (UA) Negative (Negative) 03/19/25 01:14 Urine Ketones Trace (Negative) H 03/19/25 01:14 Urine Blood Negative (Negative) 03/19/25 01:14 Urine Nitrite Negative (Negative) 03/19/25 01:14 Urine Bilirubin Negative (Negative) 03/19/25 01:14 Urine Urobilinogen Negative (Negative) 03/19/25 01:14 Ur Leukocyte Esterase Trace (Negative) H 03/19/25 01:14 Urine WBC (Auto) 0-5 /hpf (0-5) 03/19/25 01:14 Urine RBC (Auto) 3-5 /hpf (0-2) H 03/19/25 01:14 U Hyaline Cast (Auto) 0-2 /lpf (0-2) 03/19/25 01:14 U Epithel Cells (Auto) 0-2 /hpf (0-2) 03/19/25 01:14 Urine Bacteria (Auto) None Seen (None Seen) 03/19/25 01:14 Urine Comment 03/19/25 01:14 Impressions Abdomen/Pelvis CT 03/19/25 01:08 EXAM: CT abd pelvis IV con only CLINICAL HISTORY: Eval for SBO/abd pains. TECHNIQUE: CT of the abdomen and pelvis was performed with the following protocol: axial images, and reconstructed coronal and sagittal images. 93 cc of Optiray 320 as intravenous contrast was administered. One of the following dose reduction techniques was utilized for this exam: automated exposure control, adjustment of the mA and/or kV according to patient size, and use of iterative reconstruction. COMPARISON: CR 02/14/2025, 02/13/2025, 02/12/2025, CRs and CT 02/10/2025, CT 02/05/2025 reviewed. FINDINGS: Abdomen: Bowel: There has been an interval removal of the nasogastric tube and a significant regression of dilated small bowel loops, as seen in the CR dated 02/14/2025. There is persistent dilatation of a small bowel loop extending from the left lower lyssa-abdomen to the pelvis, measuring 44 mm in maximum caliber, showing a small bowel feces sign, with abrupt change of luminal caliber just underneath the anterior pelvic wall in the midline, with a transition point showing circumferential enhancing mural thickening. There is mild circumferential enhancing mural thickening with mucosal hyperenhancement of multiple pelvic small bowel loops, with mesenteric haziness and minimal interloop fluid. The visualized colon appears unremarkable. The appendix appears unremarkable. Liver: The liver measures 17.5 cm in size. No focal lesions, cysts, or masses are identified. Gallbladder and Biliary System: The gallbladder is distended. No radiodense gallstones are identified. Pancreas: The pancreatic head, body, and tail are visualized and appear normal in size and density. Spleen: The spleen is normal in size, shape, and density. No splenic lesions or masses are identified. Kidneys and Adrenal Glands: Both kidneys are normal in size. There are no renal calculi or hydronephrosis. There is a stable 12 mm isoenhancing nodule in the left adrenal gland, possibly an adenoma. The right adrenal gland appears unremarkable. Pelvis: Urinary bladder: partially distended. Status post hysterectomy. No adnexal lesions. There is minimal free fluid in the pelvis with mild fat stranding. Peritoneal and Retroperitoneal Structures: Subcentimetric mesenteric nodes are noted. Bones and Soft Tissues: There are mild degenerative changes in the lumbar spine. IMPRESSION: 1. Interval removal of the nasogastric tube and significant regression of dilated small bowel loops, as seen in the CR dated 02/14/2025. 2. Persistent dilatation of a small bowel loop extending from the left lower lyssa-abdomen to the pelvis, measuring 44 mm in maximum caliber, showing a small bowel feces sign, with abrupt change of luminal caliber just underneath the anterior pelvic wall in the midline, with a transition point showing circumferential enhancing mural thickening. The findings represent persistent localized acute small bowel obstruction. The possibility of an inflammatory stricture due to underlying Crohn's disease needs to be considered. Further workup is recommended. 3. Mild circumferential enhancing mural thickening with mucosal hyperenhancement of multiple pelvic small bowel loops, with mesenteric haziness and minimal interloop fluid. 4. Minimal free fluid in the pelvis with mild fat stranding. 5. The rest of the findings are as described above and are interval stable. Electronically signed by Edwardo Evans 03-19-2025 03:22 AM Code Status & VTE Plan VTE Prophylaxis Plan VTE Prophylaxis will be ordered: Yes
[2025-03-19] MEDS ORDERED: ALBUTEROL HFA 8 GM INHALER INH PRN (06:07)
[2025-03-19] MEDS ORDERED: ONDANSETRON INJ 2 MG/ML 2 ML VIAL IV PRN (06:07)
[2025-03-19] MEDS ORDERED: HYDROmorphone INJ 0.5 MG/0.5 ML SYR IV PRN ×2 (06:07)
--- NOTE | 2025-03-19 06:44 | Emergency Department Note ---
History of Present Illness General Chief complaint: Abdominal Pain Stated complaint: ABD PAIN, VOMIT Time Seen by Provider: 03/19/25 01:04 History of Present Illness Maximum Pain Intensity: 8 This is a 54-year-old female presenting to the emergency department for evaluation of abdominal pain. The patient began with symptoms around 1 PM yesterday, and have slowly progressed. She feels bloated with belching. The patient has had several small bowel obstructions in the past and this feels identical. She rates her discomfort an 8/10. No fevers or chills. Home Medications Medication Instructions Recorded Confirmed Type diphenhydramine HCl 25 mg 25 mg PO HS Sleep 06/13/22 03/19/25 History disintegrating tablet (Unisom SleepMelts) albuterol sulfate 90 mcg/actuation 2 puff inhalation Q4 PRN Wheezing 02/05/25 03/19/25 History aerosol inhaler diclofenac sodium 75 mg 75 mg PO AMHS 02/05/25 03/19/25 History tablet,delayed release fluticasone fur. 200 mcg-umeclid 1 ea inhalation QAM 02/05/25 03/19/25 History 62.5 mcg-vilant 25 mcg inhalat.powder (Trelegy Ellipta) fluticasone propionate 50 2 spray intranasal AMHS 02/05/25 03/19/25 History mcg/actuation nasal spray,suspension gabapentin 300 mg capsule 300 mg PO BID PRN arm nerve pain 02/05/25 03/19/25 History loratadine 10 mg tablet 10 mg PO QPM 02/05/25 03/19/25 History montelukast 10 mg tablet 10 mg PO QAM 02/05/25 03/19/25 History docusate sodium 100 mg capsule 100 mg PO BID #1 cap 02/08/25 03/19/25 Rx (Colace) bupropion HCl 150 mg 24 hr tablet, 150 mg PO QAM 03/19/25 03/19/25 History extended release polyethylene glycol 3350 17 17 g PO DAILY 03/19/25 03/19/25 History gram/dose oral powder (Miralax) Allergies Allergy/AdvReac Type Severity Reaction Status Date / Time cefuroxime [From Ceftin] Allergy Intermediate ITCHY RASH Verified 02/05/25 21:22 cephalexin [From Keflex] Allergy Intermediate ITCHY RASH Verified 02/05/25 21:22 erythromycin base Allergy Intermediate ITCHY RASH Verified 02/05/25 21:22 Penicillins Allergy Intermediate ITCHY RASH Verified 02/05/25 21:22 Tetracyclines Allergy Intermediate ITCHY RASH Verified 02/05/25 21:22 Past Med/Surg History Problem List (Updated 03/19/25 @ 06:44 by Wilfredo Cook PA-C) Nausea (Acute) Abdominal pain (Acute) Small bowel obstruction (Acute) Medical History Tobacco use Bowel obstruction Surgical History H/O: hysterectomy Social History Smoking Status: Current every day smoker Tobacco Type: Cigarettes Second Hand Exposure: Yes; Do You Dip or Chew Tobacco: No; Hx Alcohol Use: No Hx Substance Use: No Preferred Language: Turkmen Communication Ability: Effective Document Specialist Required: No Beliefs That Will Affect Care: None Current Living Situation: Spouse and Family Current Living Situation Comment: & Son Feels Safe at Home: Yes Safety Concerns: Feels Safe At This Time Assistive Devices: Glasses Review of Systems A total of 10 systems reviewed and were otherwise negative Physical Exam Vital Signs Vital Signs - 24 hr 03/19/25 00:53 03/19/25 01:18 03/19/25 01:18 Temperature 36.6 C Temperature Source Oral Pulse Rate 90 83 Pulse Rate [Apical] 81 Respiratory Rate 18 20 Respiratory Effort / Characteristics Non-Labored Spontaneous Non-Labored Spontaneous Respiratory Depth Normal Normal Respiratory Pattern Regular Regular Blood Pressure 110/73 Blood Pressure [Left Arm] 124/79 Blood Pressure Mean 85 Blood Pressure Mean [Left Arm] 94 Blood Pressure Position [Left Arm] Semi-fowlers Pulse Oximetry 92 97 Oxygen Delivery Method Room Air Room Air Sepsis Recent Fever Within 48 Hours No Sepsis New/Unexplained Change in Mental Status No Sepsis Action Taken by Nursing No Action Required 03/19/25 03:00 03/19/25 04:03 Temperature Temperature Source Pulse Rate Pulse Rate [Apical] 69 91 H Respiratory Rate 15 17 Respiratory Effort / Characteristics Non-Labored Spontaneous Non-Labored Spontaneous Respiratory Depth Normal Normal Respiratory Pattern Regular Regular Blood Pressure Blood Pressure [Left Arm] 123/81 123/83 Blood Pressure Mean Blood Pressure Mean [Left Arm] 95 96 Blood Pressure Position [Left Arm] Semi-fowlers Semi-fowlers Pulse Oximetry 94 96 Oxygen Delivery Method Room Air Room Air Sepsis Recent Fever Within 48 Hours Sepsis New/Unexplained Change in Mental Status Sepsis Action Taken by Nursing VITALS: Vitals are noted on the nurse's note and reviewed by myself. Vital signs stable. GENERAL: Well-developed, well-nourished, white female, who is in no acute distress and resting comfortably. Patient is cooperative with the examination. HEAD: Normocephalic atraumatic. NECK: Supple without nuchal rigidity. No lymphadenopathy. No thyromegaly. Cervical spine is nontender. HEART: Regular rate and rhythm without murmurs gallops or rubs. LUNGS: Clear to auscultation bilaterally without wheezes, rales or rhonchi. No retractions or accessory muscle use. ABDOMEN: Positive normal bowel sounds x 4. Soft, with general tenderness. No distinct rebound or guarding. Course Administered Medications Discontinued Medications Sodium Chloride (Nss) 1,000 mls @ 999 mls/hr IV .Q1H1M ONE Stop: 03/19/25 02:08 Last Infusion: 03/19/25 02:06 Dose: Infused Documented By: Admin: 03/19/25 01:13 Dose: 999 mls/hr Documented By: NILSON Sodium Chloride (Nss) 1,000 mls @ 100 mls/hr IV .Q10H ED Stop: 03/22/25 03:59 Last Admin: 03/19/25 03:59 Dose: 100 mls/hr Documented By: NILSON Ioversol (Optiray 320 100ml) 93 ml IV ONCE ONE Stop: 03/19/25 02:00 Last Admin: 03/19/25 01:59 Dose: 93 ml Documented By: CECE Morphine Sulfate (Morphine Sulfate 4 Mg/Ml 1 Ml Carp\Vial) 4 mg IV Q30M PRN PRN Reason: Pain Stop: 04/02/25 01:07 Last Admin: 03/19/25 04:00 Dose: 4 mg Documented By: Admin: 03/19/25 02:07 Dose: 4 mg Documented By: Admin: 03/19/25 01:13 Dose: 4 mg Documented By: NILSON Ondansetron HCl (Ondansetron Inj 2 Mg/Ml 2 Ml Vial) 4 mg IV NOW STA Stop: 03/19/25 01:09 Last Admin: 03/19/25 01:13 Dose: 4 mg Documented By: EMB Medical Decision Making Differential Diagnosis Differential diagnosis: Etiologies such as biliary colic, cholecystitis, hepatitis, pancreatitis, cardiac disease, pancreatitis, gastritis, peptic ulcer disease, appendicitis, cystitis, diverticulitis, mesenteric ischemia, inflammatory bowel disease, ileus, bowel obstruction, testicular/adnexal torsion, aortic pathology, shingles, as well as others were considered Laboratory Data 03/19/25 01:14 03/19/25 01:14 Lab Results 03/19/25 Range/Units 01:14 WBC 11.82 H (4.8-10.8) K/ul RBC 4.96 (4.20-5.40) M/uL Hgb 14.6 (12.0-16.0) g/dl Hct 44.4 (37.0-47.0) % MCV 89.5 (80.0-100.0) fL MCH 29.4 (25.0-34.0) pg MCHC 32.9 (32.0-36.0) g/dL RDW Std Deviation 45.8 (36.4-46.3) fL RDW Coeff of Nathen 13.9 (11.5-14.5) % Plt Count 429 H (130-400) K/uL MPV 8.8 L (9.4-12.4) fL Immature Gran % (Auto) 0.3 % Neut % (Auto) 78.5 % Lymph % (Auto) 14.3 % [place] % (Auto) 4.3 % Eos % (Auto) 2.3 % Baso % (Auto) 0.3 % Neut # (Auto) 9.28 H (1.40-6.50) K/uL Lymph # (Auto) 1.69 (1.20-3.40) K/uL [place] # (Auto) 0.51 (0.11-0.59) K/uL Eos # (Auto) 0.27 (0.00-0.50) K/uL Baso # (Auto) 0.03 (0.00-0.20) K/uL Immature Gran # (Auto) 0.04 (0.01-0.20) K/uL Sodium 136 (136-145) mmol/L Potassium 4.0 (3.5-5.1) mmol/L Chloride 104 (98-107) mmol/L Carbon Dioxide 26 (21-32) mmol/L Anion Gap 6 (3-11) BUN 13 (6-23) mg/dl Creatinine 0.74 (0.6-1.2) mg/dl Est Cr Clr Drug Dosing 87.7 ml/min eGFR 96.09 BUN/Creatinine Ratio 17.6 (10-20) Glucose 123 H (70-99(Fasting)) mg/dl Calcium 9.3 (8.6-10.3) mg/dl Magnesium 2.2 (1.7-2.4) mg/dl Total Bilirubin 0.4 (0.2-1.0) mg/dl AST 11 L (13-39) U/L ALT 8 (7-52) U/L Alkaline Phosphatase 66 (34-104) U/L Total Protein 7.3 (6.0-8.3) gm/dl Albumin 4.2 (3.4-5.0) gm/dl Globulin 3.1 (2.5-4.0) gm/dl Albumin/Globulin Ratio 1.4 (0.9-2) Lipase 50 (11-82) U/L Urine Color Yellow Urine Appearance Cloudy A (Clear) Urine pH 7.0 (4.5-7.5) Ur Specific [place] 1.024 (1.000-1.030) Urine Protein Negative (Negative) Urine Glucose (UA) Negative (Negative) Urine Ketones Trace H (Negative) Urine Blood Negative (Negative) Urine Nitrite Negative (Negative) Urine Bilirubin Negative (Negative) Urine Urobilinogen Negative (Negative) Ur Leukocyte Esterase Trace H (Negative) Urine WBC (Auto) 0-5 (0-5) /hpf Urine RBC (Auto) 3-5 H (0-2) /hpf U Hyaline Cast (Auto) 0-2 (0-2) /lpf U Epithel Cells (Auto) 0-2 (0-2) /hpf Urine Bacteria (Auto) None Seen (None Seen) Urine Comment Imaging Data Radiologist's Impression: Abdomen/Pelvis CT 03/19/25 01:08 EXAM: CT abd pelvis IV con only CLINICAL HISTORY: Eval for SBO/abd pains. TECHNIQUE: CT of the abdomen and pelvis was performed with the following protocol: axial images, and reconstructed coronal and sagittal images. 93 cc of Optiray 320 as intravenous contrast was administered. One of the following dose reduction techniques was utilized for this exam: automated exposure control, adjustment of the mA and/or kV according to patient size, and use of iterative reconstruction. COMPARISON: CR 02/14/2025, 02/13/2025, 02/12/2025, CRs and CT 02/10/2025, CT 02/05/2025 reviewed. FINDINGS: Abdomen: Bowel: There has been an interval removal of the nasogastric tube and a significant regression of dilated small bowel loops, as seen in the CR dated 02/14/2025. There is persistent dilatation of a small bowel loop extending from the left lower lyssa-abdomen to the pelvis, measuring 44 mm in maximum caliber, showing a small bowel feces sign, with abrupt change of luminal caliber just underneath the anterior pelvic wall in the midline, with a transition point showing circumferential enhancing mural thickening. There is mild circumferential enhancing mural thickening with mucosal hyperenhancement of multiple pelvic small bowel loops, with mesenteric haziness and minimal interloop fluid. The visualized colon appears unremarkable. The appendix appears unremarkable. Liver: The liver measures 17.5 cm in size. No focal lesions, cysts, or masses are identified. Gallbladder and Biliary System: The gallbladder is distended. No radiodense gallstones are identified. Pancreas: The pancreatic head, body, and tail are visualized and appear normal in size and density. Spleen: The spleen is normal in size, shape, and density. No splenic lesions or masses are identified. Kidneys and Adrenal Glands: Both kidneys are normal in size. There are no renal calculi or hydronephrosis. There is a stable 12 mm isoenhancing nodule in the left adrenal gland, possibly an adenoma. The right adrenal gland appears unremarkable. Pelvis: Urinary bladder: partially distended. Status post hysterectomy. No adnexal lesions. There is minimal free fluid in the pelvis with mild fat stranding. Peritoneal and Retroperitoneal Structures: Subcentimetric mesenteric nodes are noted. Bones and Soft Tissues: There are mild degenerative changes in the lumbar spine. IMPRESSION: 1. Interval removal of the nasogastric tube and significant regression of dilated small bowel loops, as seen in the CR dated 02/14/2025. 2. Persistent dilatation of a small bowel loop extending from the left lower lyssa-abdomen to the pelvis, measuring 44 mm in maximum caliber, showing a small bowel feces sign, with abrupt change of luminal caliber just underneath the anterior pelvic wall in the midline, with a transition point showing circumferential enhancing mural thickening. The findings represent persistent localized acute small bowel obstruction. The possibility of an inflammatory stricture due to underlying Crohn's disease needs to be considered. Further workup is recommended. 3. Mild circumferential enhancing mural thickening with mucosal hyperenhancement of multiple pelvic small bowel loops, with mesenteric haziness and minimal interloop fluid. 4. Minimal free fluid in the pelvis with mild fat stranding. 5. The rest of the findings are as described above and are interval stable. Electronically signed by Edwardo Evans 03-19-2025 03:22 AM MDM Narrative Physical exam and history were performed. Nursing notes, EMR, and Medication List were personally reviewed. No social concerns were identified as barriers to patients care. History was provided by the Patient and who is at bedside. Patient appears to have abdominal pain with concern for small bowel obstruction. I discussed operative care with the patient. IV access was established and labs were obtained. She was hydrated normal saline and given IV morphine and IV Zofran. She was sent to CT scan for imaging of her abdomen and pelvis. Patient's blood work is as above and was reviewed. She does not have a significant elevated white blood cell count, gross anemia, bandemia, or significant electrolyte imbalance. Transaminases not diagnostic. CT scan was independently reviewed by myself and radiology, and does reveal small bowel obstruction. Patient declined NG tube. Escalation of care was considered, and felt to be necessary. Case was discussed with the on-call surgical team, who did evaluate the patient here in the ER. Case was also discussed with the on-call hospitalist team. Please see their dictation for further patient course, plan, and disposition. The chart was completed utilizing [employer] Speech Voice Recognition Software. Grammatical errors, random word insertions, pronoun errors, and incomplete sentences are an occasional consequence of this system due to software limitations, ambient noise, and hardware issues. Any formal questions or concerns about the content, text, or information contained within the body of this dictation should be directly addressed to the provider for clarification. Impression & Plan Small bowel obstruction Discharge Plan Visit Data Chief Complaint: Abdominal Pain Stated Complaint: ABD PAIN, VOMIT ED Provider: Kingsley Hinojosa ED Midlevel Provider: Wilfredo Cook Discharge Problem: Small bowel obstruction Patient Disposition: Being Evaluated by Hospitalist Condition: Fair Discharge Instructions Interventions: ED Discharge Assessment Last Done: 03/19/25 06:08
[2025-03-19] MEDS: LACTATED RINGER'S 1,000 ML IV SCH (06:47)
[2025-03-19] MEDS: ACETAMINOPHEN 1,000 MG/100 ML VIAL IV PRN (08:29)
[2025-03-19] MEDS: ENOXAPARIN INJ 40 MG/0.4 ML SYR SQ SCH (08:31)
[2025-03-19] MEDS: MONTELUKAST SODIUM 10 MG TABLET PO SCH (08:32)
[2025-03-19] MEDS: GABAPENTIN 300 MG CAP PO PRN (08:32)
[2025-03-19] MEDS: UMECLIDINIUM/VILANTEROL 62.5/25MCG 7 PUFFS/INHALER INH SCH (08:32)
[2025-03-19] MEDS: FLUTICASONE FUROATE 100MCG 14 PUFFS/INHALER INH SCH (08:33)
[2025-03-19] MEDS: FLUTICASONE PROPIONATE NA SPR 16 GM BTL SCH (08:33)
[2025-03-19] MEDS ORDERED: NON-FORMULARY MEDICATION (Fluticasone-Umeclidin-Vilanter [Trelegy Ellipta] 200-62.5-25 mcg INH SCH (09:00)
--- NOTE | 2025-03-19 16:22 | Communication Note ---
Date of Service: March 19, 2025 Patient seen and examined at bedside. She reports that she is feeling better compared to on admission and is passing gas. She denies any vomiting or abdominal pain. On physical examination; Constitutional: Awake, alert oriented x 3; not in distress. Respiratory: Bilateral vesicular breath sound Cardiovascular: RRR, no murmur, no edema Vessels: no JVD or carotid bruit Chest: normal inspection of chest Abdomen: Slightly distended, nontender Musculoskeletal: no cyanosis or clubbing, extremities motor strength 5/5 Skin: no rashes, warm and dry normal turgor Neurologic: PERRL, EOMI, accommodation nl, no face palsy, no dysarthria CN's II- XI intact bilaterally and moves all extremities Psychiatric: A+Ox3, euthymic affect Assessment/plan Partial SBOcontinue conservative measures with bowel rest, IV fluids. Encouraged ambulation and taking walks on the hallways. Discussed low fiber diet. Continue other home meds. Please note the above document was generated using voice recognition software. It may contain grammatical, syntax or spelling errors. Any formal questions or concerns about the content, text or information contained within the body of this dictation should be directly addressed to the provider for clarification
[2025-03-19] MEDS: LORATADINE 10 MG TAB PO SCH (21:52)
[2025-03-20 06:20] LABS: Hematocrit (blood only) 39.5 % (37.0-47.0); Hemoglobin 12.9 g/dl (12.0-16.0); Immature Granulocytes # (auto) 0.01 K/uL (0.01-0.20); Immature Granulocytes % (auto) 0.2 %; Mean Corpuscular Hemoglobin 29.5 pg (25.0-34.0); Mean Corpuscular Volume 90.2 fL (80.0-100.0); Platelet Count 351 K/uL (130-400); RDW Standard Deviation 45.5 fL (36.4-46.3); Red Blood Count 4.38 M/uL (4.20-5.40); White Blood Count 5.81 K/ul (4.8-10.8)
[2025-03-20 06:39] LABS: Anion Gap 6.0 (3-11); Blood Urea Nitrogen 6.0 mg/dl (6-23); Calcium 8.5 mg/dl (8.6-10.3); Carbon Dioxide 26.0 mmol/L (21-32); Chloride 108.0 mmol/L (98-107); Creatinine Clr Calc Pharmacy 106.4 ml/min; Glucose 81.0 mg/dl (70-99(Fasting)); Magnesium 2.1 mg/dl (1.7-2.4); Potassium 4.0 mmol/L (3.5-5.1); Sodium 140.0 mmol/L (136-145)
--- NOTE | 2025-03-20 09:37 | XRay Report ---
KUB CLINICAL HISTORY: Small bowel obstruction. FINDINGS: 2 AP, portable, supine abdominal radiographs are compared to study dated 02/14/2025 and garcía elated with abdominal CT dated 03/19/2025. There is persistent gaseous distention of the small bowel l oops which measure up to 3.5 cm diameter. There is no evidence of high-grade obstruction, as gas is s een throughout the colon. No evidence of intraperitoneal free air is identified on these supine image s. There are no abnormal abdominal calcifications. Phleboliths are seen in the pelvis. The bony struc tures appear intact. The lung bases are clear as imaged. IMPRESSION: There is persistent gaseous distention of the small bowel loops without radiographic evid ence of high-grade obstruction. When correlated with yesterday's abdominal CT this likely represents a partial obstruction. Clinical correlation will be essential. Electronically signed by: Marky Woodward M.D. 03/20/2025 9:35 AM
--- NOTE | 2025-03-20 10:37 | Surgery Progress Note ---
Date of Service March 20, 2025 Assessment & Plan (1) Small bowel obstruction: Plan: Resolving partial SBO either secondary to adhesions versus IBD. Prior colonoscopy with no significant stricture of the distal ileum, but may not be where the transition point is on imaging. Continue clear liquids, if tolerates may advance to full liquids later today and possibly a low fiber diet today Potential discharge tomorrow if continues to improve with good return of bowel function Follow-up with GI as scheduled Admission and Anticipated Discharge Date Admission Date: March 19, 2025 Subjective Admitted with recurrent partial small bowel obstruction either secondary to adhesions or undiagnosed IBD. Feeling much better, no pain, passing flatus. Tolerating clear liquids this morning. Physical Exam Constitutional: WD/WN, vitals as above Gastrointestinal (Abdomen): normal bowel sounds, soft, nontender, no hepatosplenomegaly Results & Data Vital Signs (Past 12 Hours) Vital Signs Temp Pulse Resp BP Pulse Ox O2 Del Method 03/20/25 07:05 36.5 C 85 16 108/71 94 Room Air 03/19/25 23:31 36.5 C 77 18 106/69 96 Room Air Laboratory Results Laboratory Results - last 24 hr 03/20/25 05:37 WBC 5.81 RBC 4.38 Hgb 12.9 Hct 39.5 MCV 90.2 MCH 29.5 MCHC 32.7 RDW Std Deviation 45.5 RDW Coeff of Nathen 13.6 Plt Count 351 MPV 8.8 L Immature Gran % (Auto) 0.2 Neut % (Auto) 57.1 Lymph % (Auto) 31.0 [place] % (Auto) 5.9 Eos % (Auto) 5.3 Baso % (Auto) 0.5 Neut # (Auto) 3.32 Lymph # (Auto) 1.80 [place] # (Auto) 0.34 Eos # (Auto) 0.31 Baso # (Auto) 0.03 Immature Gran # (Auto) 0.01 Sodium 140 Potassium 4.0 Chloride 108 H Carbon Dioxide 26 Anion Gap 6 BUN 6 Creatinine 0.61 Est Cr Clr Drug Dosing 106.4 eGFR 106.17 BUN/Creatinine Ratio 9.8 L Glucose 81 Calcium 8.5 L Magnesium 2.1 Diagnostic Findings KUB personally reviewed and interpreted agree with the assessment of persistent but lessened distention of the small bowel, there is air in the colon. KUB X-Ray 03/20/25 07:00 KUB CLINICAL HISTORY: Small bowel obstruction. FINDINGS: 2 AP, portable, supine abdominal radiographs are compared to study dated 02/14/2025 and correlated with abdominal CT dated 03/19/2025. There is persistent gaseous distention of the small bowel loops which measure up to 3.5 cm diameter. There is no evidence of high-grade obstruction, as gas is seen throughout the colon. No evidence of intraperitoneal free air is identified on these supine images. There are no abnormal abdominal calcifications. Phleboliths are seen in the pelvis. The bony structures appear intact. The lung bases are clear as imaged. IMPRESSION: There is persistent gaseous distention of the small bowel loops without radiographic evidence of high-grade obstruction. When correlated with yesterday's abdominal CT this likely represents a partial obstruction. Clinical correlation will be essential. Electronically signed by: Marky Woodward M.D. 03/20/2025 9:35 AM PG Care Time/CCT Total # of Minutes Spent Total Time Spent with Patient: Total time spent is greater than 50% in coordination of care (as documented) at patient's floor/unit and/or counseling patient: Coding Level of Care Code 43244 SUB INP/OBS CARE 2/35MIN Diagnoses Small bowel obstruction K56.609
--- NOTE | 2025-03-20 11:13 | Hospitalist Progress Note ---
Date of Service March 20, 2025 Assessment & Plan (1) Small bowel obstruction: Plan: 54-year-old female with past medical history significant for hyperlipidemia, COPD, chronic rhinitis, history of small bowel obstructions due to adhesions rotator cuff arthropathy of left shoulder, degenerative disc disease, ongoing smoking, depression and anxiety comes with abdominal pain and found to have small bowel obstruction. Patient had multiple admissions for bowel obstructions and last was in February 2025. P Partial Small bowel obstruction Recurrent Patient presented with abdominal pain; CT abdomen pelvis shows partial small bowel obstruction. Continue conservative measures with bowel rest; patient currently on clear liquid diet. Plan to advance to full liquid if she has bowel movement Pain control IV fluids Surgery on board for comanagement History of COPD Currently stable Continue home inhalers Tobacco abuse Counseling Depression and anxiety On Wellbutrin Abnormal CT findings 12 mm left frontal lobe gland nodule possible adenoma Needs follow-up Questionable inflammatory bowel disease Last admission on 02/15/2025 patient had colonoscopy to terminal ileum Prep was suboptimal but no evidence of Crohn's disease or terminal ileal stricturing was found. A single 6 m polyp was removed Impression was likely adhesive bowel disease no evidence of Crohn's disease and recommendation to do full colonoscopy in 6 months to year. Patient states has appointment with GI in April DVT prophylaxis Lovenox Disposition Medical floor Full code. Admission and Anticipated Discharge Date Admission Date: March 19, 2025 Subjective Patient seen and examined at bedside. She is comfortable; not in distress. Reports that she is passing flatus; no bowel movements yet. Denies increasing abdominal pain. Review of Systems Review of Systems: All systems reviewed & are unremarkable except as noted in Subjective Physical Exam Physical Exam: Constitutional: WD/WN, vitals as above, NAD, sitting up in bed, pleasant, conversing easily Respiratory: normal respiratory effort, lungs clear to auscultation, no wheeze, rales, rhonchi. Normal insp/exp effort, no accessory muscle use Cardiovascular: RRR, no murmur, no edema Vessels: no JVD or carotid bruit Chest: normal inspection of chest Abdomen: Slightly distended, nontender. Skin: no rashes, warm and dry normal turgor Neurologic: PERRL, EOMI, accommodation nl, no face palsy, no dysarthria CN's II- XI intact bilaterally and moves all extremities Psychiatric: A+Ox3, euthymic affect Results & Data Results & Data Vital Signs (Past 12 Hours) Vital Signs Temp Pulse Resp BP Pulse Ox O2 Del Method 03/20/25 07:05 36.5 C 85 16 108/71 94 Room Air 03/19/25 23:31 36.5 C 77 18 106/69 96 Room Air
[2025-03-20 14:42] VITALS: O2SAT 96
[2025-03-20 23:43] VITALS: RESP 18
[2025-03-21 06:40] LABS: Anion Gap 6.0 (3-11); Blood Urea Nitrogen 7.0 mg/dl (6-23); Calcium 8.6 mg/dl (8.6-10.3); Carbon Dioxide 26.0 mmol/L (21-32); Chloride 108.0 mmol/L (98-107); Creatinine Clr Calc Pharmacy 110.0 ml/min; Glucose 91.0 mg/dl (70-99(Fasting)); Potassium 3.7 mmol/L (3.5-5.1); Sodium 140.0 mmol/L (136-145)
[2025-03-21 07:11] VITALS: BP 113/79; PULSE 86; TEMP 97.7
--- NOTE | 2025-03-21 10:27 | Surgery Progress Note ---
Date of Service March 21, 2025 Assessment & Plan (1) Small bowel obstruction: Plan: Resolved partial SBO either secondary to adhesions versus IBD. Prior colonoscopy with no significant stricture of the distal ileum, but may not be where the transition point is on imaging. Continue low fiber diet Okay to discharge to home Follow-up with GI as scheduled Admission and Anticipated Discharge Date Admission Date: March 19, 2025 Subjective Known to service from prior admissions, resolved recurrent SBO. This may be due to adhesions versus IBD. Tolerating low fiber diet, passing a lot of flatus, no bowel movement yet but feels like she could have 1 soon. Physical Exam 2 Constitutional: WD/WN, vitals as above Gastrointestinal (Abdomen): normal bowel sounds, soft, nontender, no hepatosplenomegaly Results & Data Vital Signs (Past 12 Hours) Vital Signs Temp Pulse Resp BP Pulse Ox O2 Del Method 03/21/25 07:11 36.5 C 86 18 113/79 96 Room Air 03/20/25 23:41 36.4 C L 73 18 103/62 96 Room Air PG Care Time/CCT Total # of Minutes Spent Total Time Spent with Patient: Total time spent is greater than 50% in coordination of care (as documented) at patient's floor/unit and/or counseling patient: Coding Level of Care Code 42328 SUB INP/OBS CARE 2/35MIN Diagnoses Small bowel obstruction K56.609
--- NOTE | 2025-03-21 11:26 | Discharge Summary ---
Date of Service March 21, 2025 Admission HPI Per Admitting Provider 54-year-old female with past medical history significant for hyperlipidemia, COPD, chronic rhinitis, history of small bowel obstructions due to adhesions rotator cuff arthropathy of left shoulder, degenerative disc disease, ongoing smoking, depression and anxiety comes with abdominal pain and found to have small bowel obstruction. Patient had multiple admissions for bowel obstructions and last was in February 2025. Patient states she is taking stool softeners as prescribed and she is having soft bowel movements daily. Last bowel movement was yesterday morning. Since yesterday afternoon she start developing abdominal pain at work and when she came home the pain got progressively worse. Last night at 11 PM she had a episode of vomiting after which she felt slightly better. As symptoms did not improve she came to the ER. With the pain medication in the ER currently pain is much improved. Currently no nausea. Micturating okay. No fevers. Denies any chest pain. She has some shortness of breath and attributes to her smoking. Has smoker's cough. No headache. No runny nose no sore throat. No earaches. Patient thinks she has acid reflux and she feels food coming into her throat after eating. Currently resting comfortably and Hemodynamics are okay. Past medical history. As mentioned above. Past surgical history. Diagnostic laparoscopy. Total abdominal hysterectomy with removal of tubes. Social history. . Smokes 1 pack a day for last 15 years. No alcohol use. No drug use. Family history. No family history on file. Admission Exam Per Admitting Provider General- Not in distress. Head- atraumatic Eyes- PERRL. ENT- oropharynx clear Neck- supple, no JVD. Lungs- clear to auscultation no wheezing or crackles Heart- regular rate and rhythm; no murmur, no gallop. Abdomen- no bowel sounds, mild epigastric tenderness, no distension Extremities- no pretibial edema, no erythema seen Neuro- alert, oriented PERRL, no facial palsy; no dysarthria; moves extremities Principal Diagnosis Small bowel obstruction Discharge Exam Constitutional: WD/WN, vitals as above, NAD, sitting up in bed, pleasant, conversing easily Respiratory: normal respiratory effort, lungs clear to auscultation, no wheeze, rales, rhonchi. Normal insp/exp effort, no accessory muscle use Cardiovascular: RRR, no murmur, no edema Vessels: no JVD or carotid bruit Chest: normal inspection of chest Abdomen: nondistended, nontender. Skin: no rashes, warm and dry normal turgor Neurologic: PERRL, EOMI, accommodation nl, no face palsy, no dysarthria CN's II- XI intact bilaterally and moves all extremities Psychiatric: A+Ox3, euthymic affect Discharge Data Allergies Allergy/AdvReac Type Severity Reaction Status Date / Time cefuroxime [From Ceftin] Allergy Intermediate ITCHY RASH Verified 02/05/25 21:22 cephalexin [From Keflex] Allergy Intermediate ITCHY RASH Verified 02/05/25 21:22 erythromycin base Allergy Intermediate ITCHY RASH Verified 02/05/25 21:22 Penicillins Allergy Intermediate ITCHY RASH Verified 02/05/25 21:22 Tetracyclines Allergy Intermediate ITCHY RASH Verified 02/05/25 21:22 Consultations 03/19/25 03:45 Consult General Surgery Stat 03/19/25 03:54 ED Decision to Admit Stat Ordered Studies 03/19/25 01:08 CT abd pelvis IV con only Stat Hospital Course (1) Small bowel obstruction: Per prior attending w/ addendum: 54-year-old female with past medical history significant for hyperlipidemia, COPD, chronic rhinitis, history of small bowel obstructions due to adhesions rotator cuff arthropathy of left shoulder, degenerative disc disease, ongoing smoking, depression and anxiety comes with abdominal pain and found to have small bowel obstruction. Patient had multiple admissions for bowel obstructions and last was in February 2025. P Partial Small bowel obstruction Recurrent Patient presented with abdominal pain; CT abdomen pelvis shows partial small bowel obstruction. Continue conservative measures with bowel rest; patient currently on clear liquid diet. Plan to advance to full liquid if she has bowel movement Pain control IV fluids Surgery on board for comanagement History of COPD Currently stable Continue home inhalers Tobacco abuse Counseling Depression and anxiety On Wellbutrin Abnormal CT findings 12 mm left frontal lobe gland nodule possible adenoma Needs follow-up Questionable inflammatory bowel disease Last admission on 02/15/2025 patient had colonoscopy to terminal ileum Prep was suboptimal but no evidence of Crohn's disease or terminal ileal stri cturing was found. A single 6 m polyp was removed Impression was likely adhesive bowel disease no evidence of Crohn's disease and recommendation to do full colonoscopy in 6 months to year. Patient states has appointment with GI in April DVT prophylaxis [facility] Full code. Addendum 03/21/2025: Patient seen and examined at bedside as a follow-up of his small bowel obstruction. Patient has been on low fiber diet since last evening, denies any further increase in abdominal pain. Patient has been ambulating in the hallway, reports moving gas, has not moved bowel yet. General surgery evaluation noted, they are okay with patient being discharged. Patient would like to go home. Patient is hemodynamically stable and is being discharged to home with following instructions at the point of discharge: Follow-up with your primary care physician within a week time and likely you will need labs CBC/CMP/magnesium/phosphorus. Continue with low fiber diet for next 7 to 10 days, if with increasing abdominal pain/nausea/vomiting, refer to emergency immediately. Follow-up with your GI physician as an outpatient as prior for follow-up on your questionable inflammatory bowel disease. Take your medications as prescribed. Please make sure that you are able to get your medications today by calling your pharmacy before you leave the hospital so that your treatment continuity is not broken. Home Health Attestation I certify that this patient is under my care and that I, or a physicians carpenter assistant working with me, had a face to-face encounter that meets the home health ctus-sb-yeon encounter requirements with this patient. The encounter with the patient was in whole, or in part, for the following medical condition, which is the primary reason for home health care (list medical condition): I certify that, based on my findings, the following services are medically necessary home health services: My clinical findings support the need for the above services because: Further, I certify that my clinical findings support that this patient is homebound (i.e. absences from home require considerable and taxing effort and are for medical reasons or yarsani services or infrequently or of short duration when for other reasons) because: Certification for Home Health Services: Based on the above findings, I certify that this patient is confined to the home and needs intermittent custodial care, physical therapy and/or speech therapy or continues to need occupational therapy. The patient is under my care, and I have initiated the establishment of the plan of care. This patient will be followed by a physician who will periodically review the plan of care. Total Time Total Time Spent Total Time Spent (In Minutes): 35 Discharge Plan Discharge Items Patient Disposition: Home - Self-Care Reason For Visit: SBO Discharge Diagnosis: Small bowel obstruction Condition on Discharge: Fair Activity: Resume your previous activity Non-emergency contact: Primary Care Provider Call non-emergency contact if: you have any medication questions Follow-up/Referrals: Carolina Galvan PA-C [Physician Electrician Master] - 04/18/25 8:00 am Colton No MD [Primary Care Provider] - Diet: Low Fiber Addtl Attending Provider Instructions: Follow-up with your primary care physician within a week time and likely you will need labs CBC/CMP/magnesium/phosphorus. Continue with low fiber diet for next 7 to 10 days, if with increasing abdominal pain/nausea/vomiting, refer to emergency immediately. Follow-up with your GI physician as an outpatient as prior for follow-up on your questionable inflammatory bowel disease. Take your medications as prescribed. Please make sure that you are able to get your medications today by calling your pharmacy before you leave the hospital so that your treatment continuity is not broken. Pending Studies at Discharge: No Stand-Alone Forms: My [facility], Smoking Cessation Medications and DC Order Prescriptions: Continued Unisom SleepMelts 25 mg Tablet,Disintegrating 25 mg PO HS bupropion HCl 150 mg tablet extended release 24 hr 150 mg PO QAM polyethylene glycol 3350 [Miralax] 17 gram/dose Powder 17 g PO DAILY Trelegy Ellipta 200-62.5-25 mcg blister with device 1 ea INHALATION QAM diclofenac sodium 75 mg tablet,delayed release (DR/EC) 75 mg PO AMHS loratadine 10 mg tablet 10 mg PO QPM gabapentin 300 mg capsule 300 mg PO BID PRN (Reason: arm nerve pain) albuterol sulfate 90 mcg/actuation Hfa Aerosol Inhaler 2 puff INHALATION Q4 PRN (Reason: Wheezing) montelukast 10 mg tablet 10 mg PO QAM fluticasone propionate 50 mcg/actuation spray,suspension 2 spray INTRANASAL AMHS docusate sodium [Colace] 100 mg capsule 100 mg PO BID Qty: 1 0RF Discharge Orders: Discharge Order (Routine); Ordered 03/21/25 Ordered By: Pranav Waldrop Admission Data Admit Date/Time: 03/19/25 05:04 Attending Provider: Pranav Waldrop Admit Provider: Hardeep Ribeiro Primary Care Provider: Colton No Other Providers: Hardeep Ribeiro; Silvestre Orozco
== END 2025-03-21 12:58 | disposition home or self-care (01) | DRG 390 ==
LOC: ED 00:45 → EDINP 05:04 → SUATTDRO 05:04 → 3E 06:08